=== PATIENT | female | born 1995 | race Caucasian/White ===

== ENCOUNTER 2019-11-09 14:20 | Emergency (ER) | payer MEDICAID, SELFPAY ==
[2019-11-09 14:53] VITALS: BP 126/64; PULSE 82; RESP 16; TEMP 36.8; O2SAT 98; BMI 32.8
--- NOTE | 2019-11-09 15:01 | ED_ITS ---
Entered by Paula Haq, acting as scribe for Nov 09, 2019 14:20 HPI - Female Genitourinary General: Chief complaint: Urogenital-Female Stated complaint: bleeding Time Seen by Provider: 11/09/19 15:02 History of Present Illness: HPI Narrative: 24 yo female presents with vaginal bleeding. Pt states that she got a depo shot in [facility], she isn't due for another shot until November 20. Pt states that she has abdomen pain. Pt states that she had had large clots. MD elicited complaint: vaginal bleeding Onset (ago): week(s) (1) Location of symptoms: vaginal Female Urogenital Radiation: Suprapubic Quality of pain: sharp Consistency: constant Vaginal bleeding: heavy and clots Exacerbating factors: movement Relieving factors: none Associated symptoms: Deny abdominal pain or headache(s) Date of Last Menstrual Period: 11/06/19 Review of Systems Const: Denies: fever, chills, body aches or change in appetite Eyes: Denies: blurry vision or eye discomfort ENMT: Denies: throat pain or dental pain Card: Denies: chest pain Resp: Denies: shortness of breath GI: Denies: abdominal pain : Denies: painful urination Musc: Denies: neck pain or back pain Skin/Breast: Denies: rash Neuro: Denies: headache Psych: Denies: depression Damien/Lymph: Denies: easy bruising All/Imm: Denies: hives PFSH ED PFSH: Medical History (Updated 11/09/19 @ 16:02 by Scooby Hadley MD) Peptic ulcer disease Seizure disorder Surgical History (Updated 11/09/19 @ 15:09 by Paula Haq) History of cholecystectomy Social History Smoking and tobacco status: current every day smoker Female Reproductive History: Date of last menstrual period: 11/06/19 Physical Exam Const: COMMON NORMALS: no apparent distress, oriented x3 and healthy appearing HENMT: COMMON NORMALS: normocephalic and head/scalp atraumatic HEAD & SCALP: normocephalic and atraumatic Eye: COMMON NORMALS: PERRL and EOMs intact bilaterally PUPIL: Yes PERRL Neck/C-Spine: COMMON NORMALS: full ROM and supple Chest: COMMONS NORMALS: inspection of chest normal and palpation of chest normal Resp: COMMON NORMALS: normal respiratory effort, no retractions, no use of accessory muscles and clear to auscultation bilaterally AUSCULTATION: clear to auscultation bilaterally Cardio: COMMON NORMALS: regular rate, regular rhythm and no murmurs RATE: regular rate RHYTHM: regular rhythm GI: COMMON NORMALS: normal to inspection, nondistended, normoactive bowel sounds, soft to palpation and no masses PALPATION: Yes soft and Yes tender (lower abdomen pain) Extremity: COMMON NORMALS: normal to inspection and full ROM Neuro: COMMON NORMALS: oriented x3, moves all extremities and no focal motor deficits Psych: COMMON NORMALS: mental status grossly normal, thought process normal and cooperative THOUGHT PROCESS: normal thought process Skin: COMMON NORMALS: no rashes or lesions noted and no wounds GENERAL SKIN EXAM: no rashes or lesions noted Course Vital Signs: Vital signs: Vital Signs Temperature 98.2 F 11/09/19 14:53 Pulse Rate 82 11/09/19 14:53 Respiratory Rate 16 11/09/19 14:53 Blood Pressure 126/64 11/09/19 14:53 Pulse Oximetry 98 11/09/19 14:53 MDM - Female MDM Narrative: Medical decision making narrative: Patient presents with vaginal bleeding is likely menses. Her test here is negative and blood work is negative as well. Patient is on the Depo shot currently and is to follow-up with her primary care Dr. Starr next week. She is return to the ER if worsening. Patient's blood pressure here is normal and she has no signs of hypotension. Lab Data: Labs: Lab Results 11/09/19 11/09/19 Range/Units 15:24 15:24 WBC 8.0 (4.0-10.0) 10^3/ uL RBC 4.80 (4.1-5.3) 10^6/u L Hgb 12.2 (11.5-15.3) g/dL Hct 40.9 (37.0-47.0) % MCV 85.2 (81-99) fL MCH 25.4 L (28.0-34.0) pg MCHC 29.8 L (30.0-36.0) g/dL RDW 17.5 H (12.1-15.1) % Plt Count 401 H (130-400) 10^3/c mm MPV 9.5 (7.4-10.4) fL Neut % (Auto) 49.9 % Lymph % (Auto) 38.8 % [place] % (Auto) 4.3 % Eos % (Auto) 5.9 % Baso % (Auto) 0.8 % Neut # (Auto) 4.0 (1.8-7.7) 10^3/u L Lymph # (Auto) 3.1 (0.8-4.8) 10^3/u L [place] # (Auto) 0.3 (0.2-0.9) 10^3/u L Eos # (Auto) 0.5 (0.0-0.8) 10^3/u L Baso # (Auto) 0.1 (0.0-0.1) 10^3/u L Nucleated RBC % (a uto) 0 % Nucleated RBCs # 0.0 /100WBC Sodium 138 (136-145) mmol/L Potassium 4.0 (3.5-5.1) mmol/L Chloride 104 (98-107) mmol/L Carbon Dioxide 21 L (22-29) mmol/L Anion Gap 17.0 (5-19) BUN 7 (6-20) mg/dL Creatinine 0.5 (0.5-0.9) mg/dL GFR Calculation 151.6 H (90-130) mL/min Glucose 98 (65-115) mg/dL Calculated Osmolal ity 282 L (285-295) mOsm/k g Calcium 9.8 (8.5-10.5) mg/dL Ser , Sony i-Qnt 0.50 mIU/mL Discharge Plan Discharge Patient Disposition: Home, Self-Care Clinical Impression: Vaginal bleeding Condition: Stable Discharge Orders: Discharge Order (Routine); Ordered 11/09/19 Ordered By: Scooby Hadley Referrals: Octaviano [place] MD [Primary Care Provider] - Discharge Diet: Advance as tolerated Discharge Activity: Resume usual activity Patient Instructions: Menstruation (ED) Coding Level of Care Code ED Furnace Process Supervisor for Chg Fwd Exam Comprehensive The documentation recorded by the Severino whitman Kialy, accurately reflects the service I personally performed and the decisions made by Jomar smith Korby, MD Nov 09, 2019 14:20
[2019-11-09 15:31] LABS: Basophils # 0.1 10^3/uL (0.0-0.1); Basophils % 0.8 %; Eosinophils # 0.5 10^3/uL (0.0-0.8); Eosinophils % 5.9 %; Hematocrit 40.9 % (37.0-47.0); Hemoglobin 12.2 g/dL (11.5-15.3); Lymphocytes # 3.1 10^3/uL (0.8-4.8); Lymphocytes % 38.8 %; Mean Corpuscular HGB Conc 29.8 g/dL (30.0-36.0); Mean Corpuscular Hemoglobin 25.4 pg (28.0-34.0); Mean Corpuscular Volume 85.2 fL (81-99); Mean Platelet Volume 9.5 fL (7.4-10.4); Monocytes # 0.3 10^3/uL (0.2-0.9); Monocytes % 4.3 %; Neutrophils % 49.9 %; Nucleated Red Blood Cells % 0 %; Platelet Count 401 10^3/cmm (130-400); Red Cell Distribution Width 17.5 % (12.1-15.1)
[2019-11-09 15:50] LABS: Blood Urea Nitrogen 7 mg/dL (6-20); Calcium 9.8 mg/dL (8.5-10.5); Carbon Dioxide 21 mmol/L (22-29); Chloride 104 mmol/L (98-107); Glomerular Filtration Rate 151.6 mL/min (90-130); Glucose 98 mg/dL (65-115); Osmolality Calculated 282 mOsm/kg (285-295); Sodium 138 mmol/L (136-145)
[2019-11-09 16:06] VITALS: BP 115/75; PULSE 75; RESP 15; O2SAT 98
== END 2019-11-09 16:07 | disposition home or self-care (01) ==
PROVIDERS: Emergency Provider Emergency Medicine; PCP Family Medicine
DX: N93.9 Abnormal uterine and vaginal bleeding, unspecified (principal)
CPT/HCPCS: 36415; 80048; 84702; 85025; 99281; 99282

== ENCOUNTER → 2020-04-28 11:12 | Outpatient (BNVA) | payer MEDICAID, SELFPAY | PROVIDERS: PCP Family Medicine; Visit Provider Nurse Practitioner Family | DX: L23.7 Allergic contact dermatitis due to plants, except food (principal); L08.9 Local infection of the skin and subcutaneous tissue, unspecified; M25.461 Effusion, right knee; G89.29 Other chronic pain; M25.561 Pain in right knee | CPT/HCPCS: 73562 ==

== ENCOUNTER 2020-05-26 14:21 | Outpatient (CLI) | payer MEDICAID, SELFPAY ==
--- NOTE | 2020-05-26 17:30 | MR_ITS ---
WS: [id number] MRI RIGHT KNEE NONCONTRAST TECHNIQUE: Axial PD, coronal PD fat sat, coronal PD, sagittal PD, and sagittal PD fat-sat images obta ined. CLINICAL INFORMATION: M25.569 Pain in unspecified knee COMPARISON: None. FINDINGS: Distal quadriceps and patella tendons are intact. Normal anterior and posterior cruciate ligament. No rmal patella. Hoffa's fat pad is normal in appearance. Horizontal tear involving the posterior horn m edial meniscus extending to the articular surface. This extends into the meniscal root. Two small ass ociated meniscal cysts measuring 8 and 9 mm Mild chondromalacia patella worse involving the lateral patella facet. No subchondral edema. Normal m edial and lateral collateral ligaments. No subchondral edema involving the tibial plateau. MR/MR knee RT wo con* [id number] IMPRESSION: 1. Anterior and posterior cruciate ligaments are intact. 2. Horizontal tear involving the posterior horn medial meniscus extending to t he meniscal root and articular surface. Small adjacent perimeniscal cysts measu ring 8 and 9 mm. 3. Mild chondromalacia patella worse involving the lateral patella facet. 4. Normal popliteal fossa. 5. Normal medial and lateral collateral ligaments.
== END 2020-05-26 14:22 | disposition home or self-care (01) ==
LOC: RADSHAW 14:26
PROVIDERS: PCP Family Medicine; Visit Provider Orthopaedic Surgery
DX: S83.241A Other tear of medial meniscus, current injury, right knee, initial encounter (principal); X58.XXXA Exposure to other specified factors, initial encounter; M22.41 Chondromalacia patellae, right knee
CPT/HCPCS: 73721

== ENCOUNTER → 2020-06-07 09:07 | Outpatient (BNVA) | payer MEDICAID, SELFPAY | PROVIDERS: PCP Family Medicine; Visit Provider Internal Medicine | DX: J45.40 Moderate persistent asthma, uncomplicated (principal) | CPT/HCPCS: 87635 ==

== ENCOUNTER → 2021-06-02 09:54 | Outpatient (BNVA) | payer BC, MEDICAID, SELFPAY | PROVIDERS: PCP Family Medicine; Visit Provider Obstetrics & Gynecology | DX: O09.899 Supervision of other high risk pregnancies, unspecified trimester (principal); J45.40 Moderate persistent asthma, uncomplicated; F17.200 Nicotine dependence, unspecified, uncomplicated; F12.10 Cannabis abuse, uncomplicated; O09.30 Supervision of pregnancy with insufficient antenatal care, unspecified trimester; Z86.32 Personal history of gestational diabetes; Z3A.00 Weeks of gestation of pregnancy not specified | CPT/HCPCS: 80307; 81000; 82950; 85027; 86592; 86762; 86803; 86850; 86900; 87086; 87340; 87491; 87591; 87661; 87806; 88175 ==

== ENCOUNTER → 2021-06-16 09:15 | Outpatient (BNVA) | payer BC, MEDICAID, SELFPAY | PROVIDERS: PCP Family Medicine; Visit Provider Obstetrics & Gynecology | DX: O09.899 Supervision of other high risk pregnancies, unspecified trimester (principal); Z86.32 Personal history of gestational diabetes; J45.40 Moderate persistent asthma, uncomplicated; F17.200 Nicotine dependence, unspecified, uncomplicated; F12.10 Cannabis abuse, uncomplicated; O09.30 Supervision of pregnancy with insufficient antenatal care, unspecified trimester | CPT/HCPCS: 81000 ==

== ENCOUNTER → 2021-07-11 14:20 | Outpatient (BNVA) | payer BC, MEDICAID, SELFPAY | PROVIDERS: Visit Provider Obstetrics & Gynecology | DX: O09.899 Supervision of other high risk pregnancies, unspecified trimester (principal); F15.11 Other stimulant abuse, in remission; Z86.32 Personal history of gestational diabetes; J45.40 Moderate persistent asthma, uncomplicated; F17.200 Nicotine dependence, unspecified, uncomplicated; F12.10 Cannabis abuse, uncomplicated; O09.30 Supervision of pregnancy with insufficient antenatal care, unspecified trimester; F41.9 Anxiety disorder, unspecified; F32.A Depression, unspecified; Z3A.00 Weeks of gestation of pregnancy not specified | CPT/HCPCS: 80307; 81000; 87081 ==

== ENCOUNTER 2021-07-18 11:25 | Outpatient (CLI) | payer BC, MEDICAID, SELFPAY ==
[2021-07-18 12:04] VITALS: RESP 17; TEMP 36.6
[2021-07-18 12:24] LABS: Actim Prom Negative
[2021-07-18 12:28] VITALS: BP 119/69; PULSE 77
[2021-07-18 12:57] VITALS: BP 115/77; PULSE 77
[2021-07-18 13:20] VITALS: BP 115/77; PULSE 77
== END 2021-07-18 13:20 | disposition home or self-care (01) ==
LOC: OPOB 11:36 → OBGYN 12:00
PROVIDERS: Obstetrics & Gynecology; Visit Provider Obstetrics & Gynecology
DX: O99.891 Other specified diseases and conditions complicating pregnancy (principal); N89.8 Other specified noninflammatory disorders of vagina
CPT/HCPCS: 59025; 80307; 81000; 84112; 99211

== ENCOUNTER 2021-07-24 17:25 | Inpatient (IN) | payer BC, MEDICAID, SELFPAY ==
[2021-07-24] VITALS (11 sets, daily range): BP systolic 112–146; BP diastolic 56–93; PULSE 64–97; RESP 17; BMI 33.8
--- NOTE | 2021-07-24 17:55 | PC.NURSE ---
pt transferring from [facility] to labor bed, RN and EMS personnel at bedside assisting pt over to bed
[2021-07-24] MEDS: lactated ringers 1,000 ML 125 ML IV (18:00)
[2021-07-24] MEDS: oxytocin 30 UNIT/500 ML BAG 600 UNIT IV (18:00)
--- NOTE | 2021-07-24 18:16 | PC.NURSE ---
pt in lithotomy position with legs in stir ups, RN at bedside, manually inspecting uterus at this time.
[2021-07-24] MEDS: miSOPROStol 200 mcg Tablet 800 MCG PR (18:17)
[2021-07-24] MEDS: fentaNYL 50 mcg/mL INJ 2mL IVP (18:26)
--- NOTE | 2021-07-24 18:29 | PM.OBGYHP ---
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 Moses is a 25-year old 10 para 4-0-5-4 who is approximately 37 weeks gestation who presented to labor and delivery via EMS after delivering at home. I got a call at 5:56 PM stating that EMS had called Labor and Delivery stating they were 20 minutes out and patient had delivered at home at about 5:20 PM and that the baby was doing well. They stated that the placenta had delivered and patient did have some bleeding but not excessive. Patient rates Labor and Delivery at 5:52 PM and I was on Labor and Delivery to evaluate the patient. Patient was taken to her room and placed in lithotomy position. Placenta had been brought in. Patient had membranes hanging out of her vagina. Patient was pretty uncomfortable. course: Limited care-started care at 30 weeks with women's health care and had [address] Akhtar. History significant for history of methamphetamine use and current marijuana use. She also has asthma mild intermittent and uses an albuterol inhaler as needed. She does smoke cigarettes as well. GBS was positive and patient did not obtain antibiotics as she delivered at home Obstetric History: x4 SAB x4 DELIVERY NOTE: She was set up in lithotomy position after verbal consent was obtained. Membranes were removed using the ring forceps. Manual exploration of the uterine cavity was done with just membranes and clots removed. No placental tissue identified. Fundus was firm however low segment was boggy and 800 mcg of Cytotec was placed per rectum and Pitocin was continued. The vagina and cervix were inspected and no cervical or sulcal lacerations were noted. Baby boy Stoney born at home. No Apgars as they reached the hospital at 30 minutes of life. Placenta was delivered by EMS. Cotyledons were intact , eccentrically inserted umbilical cord with 3 vessels noted. Placenta appeared circumvallate-sent to pathology Estimated blood loss -50 mL On Labor and Delivery . About 300 mL lost previously. Complications-none, both baby and mother were left to recover in a stable condition Assessment/plan: Routine care, p.o. pain medication as needed -Patient does not have custody of her other children and will likely have a DFS case -History of methamphetamine use and marijuana use-drug screen sent today -CBC sent now. Milieu Technician notified that was born of a GBS positive mother without antibiotics at time of delivery -Encourage ambulation. This documentation was created by [employer] banquet manager software (known for inherent banquet manager error). Every effort was made to assure accuracy of banquet manager. Any obvious errors or omissions should be clarified with the author of the document. Present Details Date of Last Menstrual Period: 11/09/19 Calculated Date of Delivery: 08/15/20 Gestational Age Based on Last Menstrual Period: 89 Review of Systems General: Reports: 10 or more systems reviewed and unremarkable except in HPI and below Const: Denies: fever(s), chills, change in appetite, change in weight, fatigue, malaise or change in sleep pattern Eyes: Denies: change in vision, eye discomfort, eye discharge or seeing flashes ENMT: Denies: throat pain, odynophagia, hoarseness, bleeding gums, ear discharge, nasal discharge or nasal congestion Card: Denies: chest pain, irregular heart rhythm, edema, swelling of feet/ankles, dyspnea on exertion or leg pain with exertion Resp: Denies: dyspnea, productive cough, wheezing or chest congestion GI: Reports: abdominal pain; Denies: nausea, vomiting, heartburn, diarrhea, constipation, change in bowel habits or hematochezia : Reports: vaginal bleeding; Denies: flank pain, dysuria, urinary frequency, urinary urgency, urinary incontinence, genital lesions, vaginal odor, vaginal discharge, dysmenorrhea, change in menstrual flow, prolapse symptoms, dyspareunia or sexual dysfunction Musc: Denies: neck pain, back pain, joint pain, joint swelling or muscle cramps Skin/Breast: Denies: rash, pruritus, breast tenderness, nipple discharge or breast mass Neuro: Denies: headache(s), numbness in extremities or seizure-like activity Psych: Denies: anxiety, depression, mood swings or change in appetite Endo: Denies: cold intolerance, flushing, hot flashes or change in body appearance Damien/Lymph: Denies: easy bruising, easy bleeding or enlarged lymph nodes All/Imm: Denies: urticaria, tongue swelling, acute wheezing or itchy eyes Medications/Allergies Home Medications Medication Instructions Recorded Confirmed Last Taken Type albuterol sulfate 90 mcg/actuation 2 puff INHALATION Q6H PRN 05/17/20 07/18/21 Unknown History aerosol inhaler cephalexin 750 mg capsule 750 mg PO Q6H #40 cap 07/18/21 07/18/21 Unknown Rx Allergies Allergy/AdvReac Type Severity Reaction Status Date / Time pineapple Allergy Mild tingling Verified 07/18/21 09:43 of tongue/light swelling PFSH PRODUCTION CONTROL SCHEDULER PFSH: Medical History ADHD Anxiety Depression History of atrial septal defect History of reactive attachment disorder Peptic ulcer disease PTSD (post-traumatic stress disorder) Seizure disorder Surgical History History of cholecystectomy Family History Father Diabetes Heart disease Daughter Heart murmur Other Adopted Social History Marital status: Legally Additional social history: Drug use: Marijuana daily--> has medical card that is scanned into chart Supplemental PFSH Information: Tobacco use: Current everyday smoker-- 1ppd for 6 years Alcohol use: previous to on special occasions Drug use: everyday marijuana user--has medical marijuana card Other Female Reproductive History: Menstrual History Comment: Menarche: 13 Length: Duration: 6-7 days Sexual History: Sexual History Comment: Coitarche: 18 Lifetime Partners: more than 5 ----- been with current partner since 2019 Currently Active: yes Preference: bisexual STD History Comment: Chlamydia- 2014 Contraception: Contraception History Comment: Pills, Patch, Progesterone injection, Condoms Dietary Habits: Current diet type/program: regular (poorly balanced) History History History 10 Term 4 Miscarriages/Ectopic 5 0 Living Children 4 Other History: x5 SAB--> no complications 1--> 10/09/2015, Male, 8lbs 5oz, GDM, epidural, , delivered at [place], [place] 2--> 06/2016, Female, 7lbs 15oz, epidural, , GDM, delivered at [place], [place] 3--> 10/21/2017, Male, 8lbs 9oz, epidural, , delivered at [facility] in [place], [place] by Dr. [place] 4--> 03/06/2019, Male, 8lbs 15oz, epidural, , delivered at [facility] in [place], [place] 5--> current Care RASHAAD Calculator Estimated Delivery Date Method Current WG Current Estimate 08/09/21 LMP (Certain) 37w 5d Other Estimates 07/30/21 Ultrasound #1 39w 1d Vitals/I&O/Wt Last Vital Signs Pulse 78 07/24/21 18:21 Resp 17 07/24/21 18:26 BP 146/93 07/24/21 18:21 Attestations Medical Necessity Statement*: Patient just had a baby and will need to stay 1-2 more midnights to recover from delivery Coding Level of Care Code Acute Investigative Analyst for [facility] Justin
[2021-07-24 18:38] LABS: Blood Urine 3+ (Negative); Glucose Urine UA Norm (Normal); Ketones Urine 1+ (Negative); Nitrate Urine Negative (Negative); Protein Urine Trace (Negative); Specific Gravity, Urine 1.015 (1.005-1.030); Urine Appearance SL Hazy (CLEAR); Urine Color Yellow (Yellow); pH Urine 6.5 (5-7)
[2021-07-24 18:39] LABS: Bilirubin Urine 1+ (Negative); Leukocyte Esterase Urine Trace (Negative); Urobilinogen Urine 4 mg/dL (Negative)
[2021-07-24 18:45] LABS: Bacteria Urine 1+ /hpf; Mucus Urine 2+ /hpf; RBC Urine >100 /hpf (0-2); Squamous Epithelial Cell Urine 15-25 /hpf (0-5)
[2021-07-24 18:46] LABS: Add Urine Culture? No; Amphetamines Screen Urine Negative (Negative); Barbiturates Screen Urine Negative (Negative); Benzodiazepines Screen Urine Negative (Negative); Cocaine Screen Urine Negative (Negative); Opiate Screen Urine Negative (Negative); PCP Screen Urine Negative (Negative); THC Screen Urine Positive (Negative)
--- NOTE | 2021-07-24 19:00 | PC.NURSE ---
Report from EMS: Flori Moses,G 5 P5 now,EDC 08-09-2021, EMS got called out to pt house for delivery of baby, Baby boy born approximately 1635. prior to EMS arrival, Baby was crying and blow by was given per EMS personnel.EMS reported that placenta was delivered shortly after EMS arrival. EMS reported some membrane was hanging from vaginal or retained placenta possibly. reported that bleeding was ok. Arrival of EMS was 1752, pt bleeding was scant but tissue was visible from the vaginal canal. IV fluid was switched from what EMS presented with and LR was started at 125mL/hr. fundus was assessed and was firm at -2 station. entered that room at 1758, pt placed in lithomoy position for to inspect uterus.
[2021-07-24 19:27] LABS: Basophils # 0.1 10^3/uL (0.0-0.1); Basophils % 0.4 %; Eosinophils # 0.2 10^3/uL (0.0-0.8); Eosinophils % 1.1 %; Hematocrit 36.3 % (37.0-47.0); Hemoglobin 11.6 g/dL (11.5-15.3); Lymphocytes # 2.2 10^3/uL (0.8-4.8); Lymphocytes % 12.4 %; Mean Corpuscular Volume 90.8 fl (81-99); Mean Platelet Volume 11.3 fL (7.4-10.4); Monocytes # 0.6 10^3/uL (0.2-0.9); Monocytes % 3.4 %; Neutrophils # 14.47 10^3/uL (1.8-7.7); Neutrophils % 82.2 %; Nucleated Red Blood Cells % 0 %; Platelet Count 321 10^3/cmm (130-400); Red Cell Distribution Width 15.8 % (12.1-15.1); White Blood Count 17.6 10^3/uL (4.0-10.0)
--- NOTE | 2021-07-24 19:30 | PC.NURSE ---
Soiled linens and chuxs weighed 10 blue Chux 1 Bathmat from home 1 Flat Sheet from home 1 EMS blanket Approx 10 paper towels (from home) Approximated Dry Weight: 2280 grams Wet Weight: 3570 grams
[2021-07-24] MEDS: ibuprofen 800 mg tablet PO (22:00)
[2021-07-25 00:40] VITALS: BP 107/64; PULSE 78
--- NOTE | 2021-07-25 02:44 | PC.NURSE ---
[place] crisis hotline call placed due to urine positive drug screen for THC, late to care, limited care, and not having custody of the other four children.
[2021-07-25 04:28] VITALS: BP 136/59; PULSE 75
[2021-07-25 06:42] VITALS: BP 117/68; PULSE 68; TEMP 36.1
[2021-07-25 06:51] LABS: Hemoglobin 9.3 g/dL (11.5-15.3); Mean Corpuscular HGB Conc 32.1 g/dL (30.0-36.0); Mean Corpuscular Hemoglobin 28.7 pg (28.0-34.0); Mean Corpuscular Volume 89.5 fl (81-99); Mean Platelet Volume 11.2 fL (7.4-10.4); Platelet Count 278 10^3/cmm (130-400); Red Blood Count 3.24 10^6/uL (4.1-5.3); Red Cell Distribution Width 15.9 % (12.1-15.1); White Blood Count 14.3 10^3/uL (4.0-10.0)
--- NOTE | 2021-07-25 07:46 | PM.OBGYDC ---
Discharge Providers PENOLOGY TEACHER Date of Admission: 07/24/21 17:25 Date of Discharge: 07/25/21 Attending Provider at Admission: Leonid Branham MD Attending Provider at Discharge: Leonid Branham MD Ms. Moses is a 25-year old 10 para 4-0-5-4 who is approximately 37 weeks gestation who presented to labor and delivery via EMS after delivering at home. I got a call at 5:56 PM stating that EMS had called Labor and Delivery stating they were 20 minutes out and patient had delivered at home at about 5:20 PM and that the baby was doing well. They stated that the placenta had delivered and patient did have some bleeding but not excessive. Patient rates Labor and Delivery at 5:52 PM and I was on Labor and Delivery to evaluate the patient. Patient was taken to her room and placed in lithotomy position. Placenta had been brought in. Patient had membranes hanging out of her vagina. Patient was pretty uncomfortable. course: Limited care-started care at 30 weeks with women's health care and had [address] Akhtar. History significant for history of methamphetamine use and current marijuana use. She also has asthma mild intermittent and uses an albuterol inhaler as needed. She does smoke cigarettes as well. GBS was positive and patient did not obtain antibiotics as she delivered at home Obstetric History: x4 SAB x4 DELIVERY NOTE: She was set up in lithotomy position after verbal consent was obtained. Membranes were removed using the ring forceps. Manual exploration of the uterine cavity was done with just membranes and clots removed. No placental tissue identified. Fundus was firm however low segment was boggy and 800 mcg of Cytotec was placed per rectum and Pitocin was continued. The vagina and cervix were inspected and no cervical or sulcal lacerations were noted. Baby boy Stoney born at home. No Apgars as they reached the hospital at 30 minutes of life. Placenta was delivered by EMS. Cotyledons were intact , eccentrically inserted umbilical cord with 3 vessels noted. Placenta appeared circumvallate-sent to pathology Estimated blood loss -50 mL On Labor and Delivery . About 300 mL lost previously. Complications-none, both baby and mother were left to recover in a stable condition HOSPITAL COURSE: She underwent an uncomplicated vaginal delivery at home on 07/24/2021. She did well on day 0 and was ambulating well, tolerating regular diet, voiding freely, passing flatus. She was bottlefeeding without difficulty. Drug screen was positive for marijuana and DFS was involved in her case. She just wanted cigarettes however declined a nicotine patch. Pain was well-controlled with by mouth pain medication. She denied nausea, vomiting, fever, chills, shortness of breath, leg pain. She had moderate vaginal bleeding. On day # 1 she continued to do well with stable vital signs and stable hemoglobin at 9.3. She was discharged home on day 1 in a stable condition, as she desired early discharge. Warning signs for endometritis, mastitis, DVT/PE were reviewed with her. Post delivery activity restrictions were also reviewed with her at all her questions were answered to her satisfaction. Does not know what she wants for contraception and declined Depo-Provera in the interim. EXAM AT DISCHARGE: Gen.: No acute distress Heart: S1-S2 heard, regular rate and rhythm Lungs: Clear to auscultation bilaterally Abdomen: Soft, fundus firm below umbilicus, Legs: No calf tenderness, trace bilateral pitting pedal edema. CONDITION AT DISCHARGE: Stable This documentation was created by [employer] tag marker software (known for inherent tag marker error). Every effort was made to assure accuracy of tag marker. Any obvious errors or omissions should be clarified with the author of the document. Reason for Visit Reason for Visit: delivery History History History 10 Term 4 Miscarriages/Ectopic 5 0 Living Children 4 Other History: x5 SAB--> no complications 1--> 10/09/2015, Male, 8lbs 5oz, GDM, epidural, , delivered at [facility] in [place], [place] 2--> 06/2016, Female, 7lbs 15oz, epidural, , GDM, delivered at [facility] in [place], [place] 3--> 10/21/2017, Male, 8lbs 9oz, epidural, , delivered at [facility] in [place], [place] by Dr. [place] 4--> 03/06/2019, Male, 8lbs 15oz, epidural, , delivered at [facility] in [place], [place] 5--> current Discharge Data Data Completed and Pending: Pending at discharge Category Date Time Status Cytology [PTH] Ro utine Pth 07/24/21 18:23 Ordered Labs from last 24 hours 07/25/21 07/24/21 07/24/21 06:41 20:12 19:11 WBC 14.3 H 17.6 H RBC 3.24 L 4.00 L Hgb 9.3 L 11.6 Hct 29.0 L 36.3 L MCV 89.5 90.8 MCH 28.7 29.0 MCHC 32.1 32.0 RDW 15.9 H 15.8 H Plt Count 278 321 MPV 11.2 H 11.3 H Neut % (Auto) 82.2 Lymph % (Auto) 12.4 [place] % (Auto) 3.4 Eos % (Auto) 1.1 Baso % (Auto) 0.4 Neut # (Auto) 14.47 H Lymph # (Auto) 2.2 [place] # (Auto) 0.6 Eos # (Auto) 0.2 Baso # (Auto) 0.1 Nucleated RBC % (a uto) 0 Nucleated RBCs # 0.0 Urine Color Urine Appearance Urine pH Ur Specific Gravit y Urine Protein Urine Glucose (UA) Urine Ketones Urine Blood Urine Nitrate Urine Bilirubin Urine Urobilinogen Ur Leukocyte [place] Urine RBC Urine WBC Ur Squamous Epith Cells Amorphous Sediment Urine Bacteria Urine Mucus Urine Opiates Scre en Ur Barbiturates Sc reen Ur Phencyclidine S crn Ur Amphetamines Sc reen U Benzodiazepines Scrn Urine Cocaine Scre en U Marijuana (THC) Screen Blood Type A Positive Rho(D) Type Positive Antibody Screen Negative 07/24/21 07/24/21 18:00 18:00 WBC RBC Hgb Hct MCV MCH MCHC RDW Plt Count MPV Neut % (Auto) Lymph % (Auto) [place] % (Auto) Eos % (Auto) Baso % (Auto) Neut # (Auto) Lymph # (Auto) [place] # (Auto) Eos # (Auto) Baso # (Auto) Nucleated RBC % (a uto) Nucleated RBCs # Urine Color Yellow Urine Appearance Sl hazy Urine pH 6.5 Ur Specific Gravit y 1.015 Urine Protein Trace Urine Glucose (UA) Norm Urine Ketones 1+ H Urine Blood 3+ H Urine Nitrate Negative Urine Bilirubin 1+ H Urine Urobilinogen 4 H Ur Leukocyte [place] Trace H Urine RBC >100 H Urine WBC 10-15 H Ur Squamous Epith Cells 15-25 H Amorphous Sediment Not Reportable Urine Bacteria 1+ H Urine Mucus 2+ Urine Opiates Scre en Negative Ur Barbiturates Sc reen Negative Ur Phencyclidine S crn Negative Ur Amphetamines Sc reen Negative U Benzodiazepines Scrn Negative Urine Cocaine Scre en Negative U Marijuana (THC) Screen Positive H Blood Type Rho(D) Type Antibody Screen Vitals: Last Vital Signs Temp 97.0 F L 07/25/21 06:42 Pulse 68 07/25/21 06:42 Resp 17 07/24/21 19:00 BP 117/68 07/25/21 06:42 Discharge Plan Discharge Patient Disposition: Home Condition: Stable Prescriptions: New ibuprofen 800 mg tablet 800 mg PO Q8H Qty: 30 RF: 0 ferrous sulfate 325 mg (65 mg iron) tablet 325 mg PO BID Qty: 30 RF: 0 docusate sodium 100 mg Capsule 100 mg PO BID PRN (Reason: constipation) Qty: 30 RF: 0 Continued albuterol sulfate [ProAir HFA] 90 mcg/actuation HFA aerosol inhaler 2 puff INHALATION Q6H PRNRF: 0 cephalexin [Keflex] 750 mg capsule 750 mg PO Q6H Qty: 40 RF: 0 Discharge Orders: Discharge Order (Routine); Ordered 07/25/21 Ordered By: Leonid Branham Referrals: Ivanna Akhtar MD [Physician] - 09/05/21 9:15 am (2 week appointment on 08/08/21 at 1:30pm and 6-week appointment 09/05/21 at 9:15am. ) Discharge Diet: Usual diet Discharge Activity: Limit activity as instructed Patient Instructions: Depression (DC), Bleeding (DC), Preeclampsia and Eclampsia After Delivery (GEN), Vaginal Delivery (DC), OB Discharge Report, OB Food/Drug Interaction Guide, OB Home Care, OB Proud Parent Packet Activity Restrictions/Additional Instructions: Pelvic pelvic rest for 6 weeks, no heavy lifting for 6 weeks, follow-up with Dr. Akhtar for 6-week visit Discharge Attestations PENOLOGY TEACHER Time Spent in Discharge Care*: greater than 30 min Coding Level of Care Code Acute Director Industrial Relations for [facility] Justin
[2021-07-25] MEDS: prenatal vitamin Capsule 1 CAP PO (08:23)
[2021-07-25] MEDS: ibuprofen 800 mg tablet PO (08:23)
--- NOTE | 2021-07-25 08:45 | PC.NURSE ---
Lyndsey, [facility] jewelry sales representative, present at bedside at this time. This nurse at bedside with Lyndsey.
[2021-07-25 10:48] VITALS: BP 113/62; PULSE 74; RESP 16
--- NOTE | 2021-07-25 13:26 | PC.NURSE ---
Patient Rounding This nurse rounded on patient. She is talking on phone, crying, very upset, raising voice at person on the other line of phone. This nurse verbalized concern for patient and baby due to loud voices heard from hallway. Patient took deep breathes to remain calm.
[2021-07-25 14:25] VITALS: BP 105/58; PULSE 67; RESP 18; TEMP 36.9
[2021-07-25 15:52] VITALS: BP 119/62; PULSE 75; RESP 18; TEMP 36.9
== END 2021-07-25 16:50 | disposition home or self-care (01) | DRG 769 ==
PROVIDERS: Admitting Provider Obstetrics & Gynecology; Visit Provider Obstetrics & Gynecology
DX: O73.1 Retained portions of placenta and membranes, without hemorrhage (principal); O99.325 Drug use complicating the puerperium; F90.9 Attention-deficit hyperactivity disorder, unspecified type; F17.210 Nicotine dependence, cigarettes, uncomplicated; F12.10 Cannabis abuse, uncomplicated; F15.11 Other stimulant abuse, in remission; F41.8 Other specified anxiety disorders; Z87.11 Personal history of peptic ulcer disease; F43.10 Post-traumatic stress disorder, unspecified; J45.40 Moderate persistent asthma, uncomplicated; O99.345 Other mental disorders complicating the puerperium; O99.335 Smoking (tobacco) complicating the puerperium; O90.89 Other complications of the puerperium, not elsewhere classified
CPT/HCPCS: 36415; 80306; 81001; 85025; 85027; 86850; 86900; 88307; J3010

== ENCOUNTER → 2021-12-28 13:49 | Outpatient (BNVA) | payer BC, MEDICAID, SELFPAY | PROVIDERS: Visit Provider Nurse Practitioner Family | DX: M54.9 Dorsalgia, unspecified (principal) | CPT/HCPCS: 81000; 81025 ==

== ENCOUNTER 2021-12-29 11:21 | Outpatient (CLI) | payer BC, MEDICAID, SELFPAY ==
--- NOTE | 2021-12-29 11:42 | XR_ITS ---
WS: [id number] Lumbar spine, 3 views, 12/29/2021 Clinical Data: M54.50 - Low back pain, unspecified Comparison: None. Findings: No compression fractures or subluxation is seen. No disc space narrowing is seen. The transverse proc esses and SI joints are normal. There are clips in the right upper quadrant from a cholecystectomy. XR/XR lumbar spine 2-3V* [id number] Impression: Negative lumbar spine.
== END 2021-12-29 11:22 | disposition home or self-care (01) ==
LOC: RAD 11:27
PROVIDERS: Visit Provider Nurse Practitioner Family
DX: M54.50 Low back pain, unspecified (principal)
CPT/HCPCS: 72100

== ENCOUNTER → 2022-01-09 16:18 | Outpatient (BNVA) | payer BC, MEDICAID, SELFPAY | PROVIDERS: Visit Provider Nurse Practitioner Family | DX: N93.9 Abnormal uterine and vaginal bleeding, unspecified (principal) | CPT/HCPCS: 80053; 84443; 85025 ==

== ENCOUNTER → 2022-01-24 09:13 | Outpatient (BNVA) | payer BC, MEDICAID, SELFPAY | PROVIDERS: Visit Provider Nurse Practitioner Family | DX: R79.89 Other specified abnormal findings of blood chemistry (principal); R71.8 Other abnormality of red blood cells | CPT/HCPCS: 83540; 86705; 86706; 86709; 86803; 87340 ==

== ENCOUNTER → 2022-06-06 10:21 | Outpatient (BNVA) | payer MEDICAID, SELFPAY | PROVIDERS: Visit Provider Nurse Practitioner Family | DX: M25.532 Pain in left wrist (principal) | CPT/HCPCS: 73110 ==

== ENCOUNTER 2022-11-07 13:28 | Emergency (ER) | payer MEDICAID, SELFPAY ==
[2022-11-07 13:51] VITALS: BP 101/68; PULSE 85; RESP 22; TEMP 36.7; O2SAT 98; BMI 24.3
--- NOTE | 2022-11-07 14:46 | XR_ITS ---
WS: [id number] Exam: XR foot LT min 3V* [id number] Date/Time of Exam: 11/07/2022 2:46 PM Reason For Exam: Blunt trauma No acute fracture or dislocation. Normal soft tissues. Articular relationships are intact. XR/XR foot LT min 3V* [id number] IMPRESSION: 1. Negative left foot.
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
[2022-11-07 16:14] LABS: Add Urine Microscopic? NO; Charge for UA Resulting for Rev
[2022-11-07 16:28] LABS: Urine Appearance Clear (CLEAR); Urine Color Dark Yellow (Yellow); pH Urine 8 (5-7)
[2022-11-07 16:29] LABS: Bilirubin Urine Neg (Negative); Blood Urine Neg (Negative); Glucose Urine UA Norm (Normal); Ketones Urine 2+ (Negative); Leukocyte Esterase Urine Negative (Negative); Nitrate Urine Negative (Negative); Protein Urine Neg (Negative); Sulfosalicylic Acid Urine Negative (Negative); Urobilinogen Urine Norm (Negative)
[2022-11-07] MEDS: ketorolac 60 mg/2 mL INJ IM (16:30)
== END 2022-11-07 16:30 | disposition home or self-care (01) ==
PROVIDERS: Emergency Provider Nurse Practitioner Family
DX: S90.32XA Contusion of left foot, initial encounter (principal); M54.50 Low back pain, unspecified; F15.10 Other stimulant abuse, uncomplicated; W22.8XXA Striking against or struck by other objects, initial encounter; F17.210 Nicotine dependence, cigarettes, uncomplicated
CPT/HCPCS: 73630; 81003; 81025; 96372; 99284; J1885

== ENCOUNTER 2023-01-23 17:51 | Inpatient (IN) | payer MEDICAID, SELFPAY ==
[2023-01-23 17:55] VITALS: BMI 26.6
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
[2023-01-23 18:25] LABS: Basophils # 0.1 10^3/uL (0.0-0.1); Basophils % 0.7 %; Eosinophils # 0.3 10^3/uL (0.0-0.8); Eosinophils % 3.2 %; Hematocrit 38.4 % (37.0-47.0); Hemoglobin 12.1 g/dL (11.5-15.3); Lymphocytes # 1.6 10^3/uL (0.8-4.8); Lymphocytes % 18.4 %; Mean Corpuscular HGB Conc 31.5 g/dL (30.0-36.0); Mean Corpuscular Hemoglobin 28.3 pg (28.0-34.0); Mean Corpuscular Volume 89.7 fl (81-99); Mean Platelet Volume 8.7 fL (7.4-10.4); Monocytes # 0.5 10^3/uL (0.2-0.9); Neutrophils # 6.17 10^3/uL (1.8-7.7); Neutrophils % 71.4 %; Nucleated Red Blood Cells % 0 %; Platelet Count 405 10^3/cmm (130-400); Red Blood Count 4.28 10^6/uL (4.1-5.3); Red Cell Distribution Width 15.7 % (12.1-15.1); White Blood Count 8.7 10^3/uL (4.0-10.0)
[2023-01-23 18:28] LABS: HCG Qualitative Urine. Negative (Negative)
[2023-01-23 18:51] LABS: Alanine Aminotransferase 9 U/L (0-33); Albumin Level 4.5 g/dL (3.5-5.2); Alkaline Phosphatase 82 U/L (35-105); Anion Gap 16.7 (5-19); Aspartate Amino Transferase 12 U/L (0-32); Blood Urea Nitrogen 16 mg/dL (6-20); Calcium 9.1 mg/dL (8.5-10.5); Carbon Dioxide 21 mmol/L (22-29); Chloride 106 mmol/L (98-107); Globulin 2.6 g/dL (1.3-4.6); Glomerular Filtration Rate 119.9 mL/min (90-130); Glucose 73 mg/dL (65-115); Osmolality Calculated 290 mOsm/kg (285-295); Potassium 3.7 mmol/L (3.5-5.1); Sodium 140 mmol/L (136-145); Total Bilirubin 0.6 mg/dL (0.15-1.2); Total Protein 7.1 g/dL (6.6-8.7)
[2023-01-23 18:52] LABS: Acetaminophen < 5.0 ug/mL (10-30); Alcohol Level < 10 mg/dL (0-10); Salicylate < 0.3 mg/dL (3-10)
[2023-01-23] MEDS: LORazepam 2 mg Tablet PO (19:58)
[2023-01-23 22:00] VITALS: BP 112/67; PULSE 81; RESP 16; TEMP 36.9; O2SAT 100
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
[2023-01-24 06:00] VITALS: RESP 16
[2023-01-24] MEDS: OLANZapine 5 mg ODT PO (08:33)
[2023-01-24] MEDS: nicotine 21 mg Patch 1 PATCH TRANSDERMA (09:07)
[2023-01-24 09:19] VITALS: BP 106/73; PULSE 112; RESP 17; TEMP 37; O2SAT 98
[2023-01-24 13:22] VITALS: BP 118/77; PULSE 98; RESP 18; TEMP 36.6; O2SAT 99
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
[2023-01-24 14:06] LABS: Amphetamines Screen Urine Positive (Negative); Barbiturates Screen Urine Negative (Negative); Benzodiazepines Screen Urine Positive (Negative); Cocaine Screen Urine Negative (Negative); Opiate Screen Urine Negative (Negative); PCP Screen Urine Negative (Negative); THC Screen Urine Positive (Negative)
[2023-01-24 19:51] VITALS: BP 136/73; PULSE 76; RESP 18; TEMP 36.6; O2SAT 96
[2023-01-24] MEDS: quetiapine 100 mg Tablet PO (20:31)
[2023-01-25 06:00] VITALS: RESP 17
[2023-01-25] MEDS: magnesium hydroxide 30 mL UDC PO (09:14)
[2023-01-25] MEDS: nicotine 21 mg Patch 1 PATCH TRANSDERMA (12:06)
[2023-01-25] MEDS: hyDROXYzine 25 mg Capsule 50 MG PO (12:06)
[2023-01-25] MEDS: OLANZapine 5 mg ODT PO (12:35)
[2023-01-25 14:00] VITALS: BP 110/74; PULSE 109; RESP 18; TEMP 36.6; O2SAT 97
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
[2023-01-25 15:28] VITALS: BP 110/74; PULSE 109; RESP 18; TEMP 36.6; O2SAT 97
[2023-01-25] MEDS: fluoxetine 20 mg Capsule PO (16:09)
== END 2023-01-25 16:15 | disposition home or self-care (01) | DRG 881 ==
LOC: ER 18:52 → NP 20:44
PROVIDERS: Admitting Provider Psychiatry & Neurology Psychiatry; Emergency Provider Emergency Medicine; Visit Provider Psychiatry & Neurology Psychiatry
DX: F32.A Depression, unspecified (principal); F15.20 Other stimulant dependence, uncomplicated; F44.81 Dissociative identity disorder; F90.9 Attention-deficit hyperactivity disorder, unspecified type; F43.10 Post-traumatic stress disorder, unspecified; F12.90 Cannabis use, unspecified, uncomplicated; Z81.3 Family history of other psychoactive substance abuse and dependence; F17.200 Nicotine dependence, unspecified, uncomplicated; F60.3 Borderline personality disorder
CPT/HCPCS: 36415; 80053; 80306; 80307; 81025; 85025; 97150; 97165; 99238; 99285

== ENCOUNTER → 2023-02-15 13:52 | Outpatient (BNVA) | payer MEDICAID, SELFPAY | PROVIDERS: PCP Nurse Practitioner Family; Visit Provider Nurse Practitioner Family | DX: R42 Dizziness and giddiness (principal) | CPT/HCPCS: 80053; 84443; 85025 ==

== ENCOUNTER → 2023-03-01 15:14 | Outpatient (BNVA) | payer OTHER, SELFPAY | PROVIDERS: PCP Nurse Practitioner Family; Visit Provider Nurse Practitioner Family | DX: D75.839 Thrombocytosis, unspecified (principal); N64.4 Mastodynia; N64.52 Nipple discharge | CPT/HCPCS: 85025 ==

== ENCOUNTER → 2023-10-04 11:09 | Outpatient (BNVA) | payer OTHER, SELFPAY | PROVIDERS: PCP Nurse Practitioner Family; Visit Provider Nurse Practitioner | DX: Z79.899 Other long term (current) drug therapy (principal); F43.12 Post-traumatic stress disorder, chronic; F33.1 Major depressive disorder, recurrent, moderate; F41.1 Generalized anxiety disorder; F15.90 Other stimulant use, unspecified, uncomplicated; F17.210 Nicotine dependence, cigarettes, uncomplicated; F12.10 Cannabis abuse, uncomplicated | CPT/HCPCS: 80061; 83036 ==

== ENCOUNTER 2024-05-30 16:45 | Emergency (ER) | payer MEDICAID, SELFPAY ==
[2024-05-30 16:45] VITALS: BP 114/77; PULSE 84; RESP 16; TEMP 36.9; O2SAT 100; BMI 25.7
--- NOTE | 2024-05-30 16:50 | USR_ITS ---
PROCEDURE INFORMATION: Exam: US , Limited Exam date and time: 05/30/2024 5:36 PM Age: 28 years old Clinical indication: Lmp or gestational age (in weeks): 11w 4d; Antepartum complications; Bleeding; ; Additional info: 18 weeks gestation, vaginal bleeding no mvmnt LABS AND CLINICAL REPORTS: Last menstrual period start date: 02/09/2024 Gestational age (Established): 15 w 6 d Estimated due date (Established): 11/15/2024 TECHNIQUE: Imaging protocol: Real-time ultrasound of the maternal uterus with image documentation. Exam focused on the clinical indication. COMPARISON: US OB >= 14 weeks fetus [facility] 06/02/2021 11:10 AM FINDINGS: Gestation: Estimated gestational age 11 weeks 4 days by average crown-rump length. heart rate: 178 bpm Placenta: Heterogeneous fluid collection concerning for subchorionic hemorrhage measuring 2.7 x 2.4 x 3.8 cm. MATERNAL: Cervix: Cervical length measures 3.1 cm. However, the cervix may be slightly open. US/US OB limited [id number] IMPRESSION: 1. Findings concerning for subchorionic hemorrhage. 2. Cervix 3.1 cm in length but appears slightly open. 3. Estimated gestational age 11 weeks 4 days by average crown-rump length. 4. Normal heart rate.
--- NOTE | 2024-05-30 17:02 | ED_ITS ---
HPI - Female Genitourinary 2 General: Chief complaint: Vaginal Bleeding Stated complaint: vag bleeding, 18wks Time Seen by Provider: 05/30/24 16:46 History of Present Illness: Patient presents to the ER complaining of vaginal bleeding. Patient states she is approximately 18 weeks . Patient says she was feeling her baby move up until yesterday morning. She has not felt the baby move yesterday afternoon or today. The bleeding started earlier today. About 2 hours ago. It is dark in color. Patient has had no care with this . Patient is approximately . Patient does admit to meth use on a daily basis including earlier today. Date of Last Menstrual Period: 02/11/24 Related Data Previous Rx's Medication Instructions Recorded norgestimate-ethinyl estradiol 1 tab PO DAILY #84 tabs 03/01/23 0.18 mg/0.215mg/0.25mg-35 mcg(28)tablet (Tri-Sprintec (28)) aripiprazole 5 mg tablet (Abilify) 5 mg PO DAILY #30 tabs 01/31/24 fluoxetine 20 mg capsule (Prozac) 20 mg PO DAILY #30 caps 01/31/24 trazodone 100 mg tablet 100 mg PO DAILY #30 tabs 01/31/24 cyclobenzaprine 10 mg tablet 10 mg PO TID #90 tabs 02/07/24 prednisone 10 mg tablets in a dose See Rx Instructions PO PER PKG DIR 02/07/24 pack #21 ea Allergies Allergy/AdvReac Type Severity Reaction Status Date / Time pineapple Allergy Mild tingling Verified 02/07/24 13:37 of tongue/light swelling latex Allergy ALGY-Hives Verified 02/07/24 13:37 Review of Systems 2 General: Reports: 10 or more systems reviewed and unremarkable except in HPI and below PFSH ED 2 PFSH: Medical History Overdose of antipsychotic On combination antipsychotic drug therapy Stimulant use disorder Nicotine dependence, cigarettes, uncomplicated VIRY (generalized anxiety disorder) Major depressive disorder, recurrent, moderate Chronic post-traumatic stress disorder (PTSD) Psychiatric care History of atrial septal defect ADHD Depression Anxiety History of reactive attachment disorder PTSD (post-traumatic stress disorder) Peptic ulcer disease Seizure disorder Surgical History History of cholecystectomy Family History Father Diabetes Heart disease Daughter Heart murmur Other Adopted Social History Smoking and tobacco/nicotine status: current every day tobacco/nicotine user Second hand smoke exposure: Yes Substance/Drug Use: former Additional social history: Drug use: Marijuana daily--> has medical card that is scanned into chart Adopted: Yes Caregiver/support person: No Lives independently: Yes Housing: House Marital status: Legally Number of children: 4 service: No Pets and animals: Yes Do you think of yourself as: Straight/Heterosexual Female Reproductive History: Date of last menstrual period: 02/11/24 Physical Exam 2 Const: COMMON NORMALS: no acute distress, average body habitus, patient oriented x3, no limitations, healthy appearing, alert and well nourished HENMT: COMMON NORMALS: normocephalic, atraumatic, hearing grossly normal bilaterally, external ears normal, Normal external nose present and moist oral mucous membranes HEAD & SCALP: normocephalic and atraumatic NOSE: Normal external nose present EXTERNAL EAR: Yes external ears normal Neck/C-Spine: COMMON NORMALS: no JVD Chest: COMMONS NORMALS: normal inspection of the chest and normal palpation of entire chest wall Resp: COMMON NORMALS: normal respiratory effort, No retractions, No use of accessory muscles and clear to auscultation bilaterally AUSCULTATION: clear to auscultation bilaterally Cardio: COMMON NORMALS: no JVD, regular rate, regular rhythm, S1 normal heart sound present, S2 normal heart sound present, No gallops present (Cardio), No clicks present (Cardio), No murmurs present (Cardio) and No rub (Cardio) R ATE: regular rate RHYTHM: regular rhythm HEART SOUNDS: S1 normal heart sound present and S2 normal heart sound present GI: COMMON NORMALS: Normal to inspection, nondistended, normoactive bowel sounds present and Soft to palpation; negative for non-tender (Mildly tender to palpation midline suprapubically, gravid) PALPATION: Yes Soft to palpation Neuro: COMMON NORMALS: patient oriented x3 SENSORIUM/ORIENTATION: Yes alert Course 2 Vital Signs: Vital signs: Vital Signs Temperature 98.5 F 09/13/24 16:45 Pulse Rate 79 05/30/24 19:00 Respiratory Rate 16 05/30/24 16:45 Blood Pressure 114/69 05/30/24 19:00 Pulse Oximetry 100 05/30/24 19:00 Oxygen Delivery Me thod Room Air 05/30/24 19:00 MDM - Female Medical Decision Making Patient comes in approximate 10 weeks with vaginal bleeding. Lab work was obtained including ultrasound, these results was discussed with Dr. Ulloa. She suggested that patient call their office first thing Sunday morning for follow-up, but nothing inside her vagina, no sex, no illegal drugs, and get vitamin, these results was discussed with the patient as well as the suggestions she is understanding. Lab Data 05/30/24 16:59 05/30/24 16:59 Radiology Impressions Obstetrics Ultrasound 05/30/24 16:50 IMPRESSION: 1. Findings concerning for subchorionic hemorrhage. 2. Cervix 3.1 cm in length but appears slightly open. 3. Estimated gestational age 11 weeks 4 days by average crown-rump length. 4. Normal heart rate. ADDENDUM: 05/30/241843 THIS REPORT CONTAINS FINDINGS THAT MAY BE CRITICAL TO PATIENT CARE. The findings were verbally communicated via telephone conference with Scar Thomas at 6:42 PM CDT on 05/30/2024. The findings were acknowledged and understood. Laboratory Results WBC 9.56 10^3/uL (3.29-11.43) 05/30/24 16:59 RBC 4.21 10^6/uL (3.85-5.65) 05/30/24 16:59 Hgb 11.60 g/dL (11.27-16.99) 05/30/24 16:59 Hct 36.3 % (36-47) 05/30/24 16:59 MCV 86.2 fl (85-98) 05/30/24 16:59 MCH 27.6 pg (27-33) 05/30/24 16:59 MCHC 32.0 g/dL (30-55) 05/30/24 16:59 RDW 18.2 % (12.1-15.1) H 05/30/24 16:59 Plt Count 417 10^3/cmm (157-399) H 05/30/24 16:59 MPV 9.1 fL (7.4-10.4) 05/30/24 16:59 Neut % (Auto) 64.2 % 05/30/24 16:59 Lymph % (Auto) 25.5 % 05/30/24 16:59 [place] % (Auto) 4.8 % 05/30/24 16:59 Eos % (Auto) 5.1 % 05/30/24 16:59 Baso % (Auto) 0.2 % 05/30/24 16:59 Neut # (Auto) 6.13 10^3/uL (1.8-7.7) 05/30/24 16:59 Lymph # (Auto) 2.4 10^3/uL (0.8-4.8) 05/30/24 16:59 [place] # (Auto) 0.5 10^3/uL (0.2-0.9) 05/30/24 16:59 Eos # (Auto) 0.5 10^3/uL (0.0-0.8) 05/30/24 16:59 Baso # (Auto) 0.0 10^3/uL (0.0-0.1) 05/30/24 16:59 Nucleated RBC % (auto) 0 % 05/30/24 16:59 Nucleated RBCs # 0.0 /100WBC 05/30/24 16:59 PT 13.80 SECONDS (12.1-14.9) 05/30/24 16:59 INR 1.03 (0.8-1.2) 05/30/24 16:59 Sodium 138 mmol/L (136-145) 05/30/24 16:59 Potassium 4.0 mmol/L (3.5-5.1) 05/30/24 16:59 Chloride 104 mmol/L (98-107) 05/30/24 16:59 Carbon Dioxide 24 mmol/L (22-29) 05/30/24 16:59 Anion Gap 14.0 (5-19) 05/30/24 16:59 BUN 9 mg/dL (6-20) 05/30/24 16:59 Creatinine 0.5 mg/dL (0.5-0.9) 05/30/24 16:59 GFR Calculation 146.9 mL/min (90-130) H 05/30/24 16:59 Glucose 113 mg/dL (65-115) 05/30/24 16:59 Calculated Osmolality 285 mOsm/kg (285-295) 05/30/24 16:59 Calcium 8.9 mg/dL (8.5-10.5) 05/30/24 16:59 Total Bilirubin 0.2 mg/dL (0.15-1.2) 05/30/24 16:59 AST 9 U/L (0-32) 05/30/24 16:59 ALT 12 U/L (0-33) 05/30/24 16:59 Alkaline Phosphatase 75 U/L (35-105) 05/30/24 16:59 Total Protein 6.7 g/dL (6.6-8.7) 05/30/24 16:59 Albumin 3.9 g/dL (3.5-5.2) 05/30/24 16:59 Globulin 2.8 g/dL (1.3-4.6) 05/30/24 16:59 Urine Color Yellow (Yellow) 05/30/24 18:05 Urine Appearance Slightly cloudy (CLEAR) 05/30/24 18:05 Urine pH 5 (5-7) 05/30/24 18:05 Ur Specific [place] 1.025 (1.005-1.030) 05/30/24 18:05 Urine Protein Trace (Negative) 05/30/24 18:05 Urine Glucose (UA) Norm (Normal) 05/30/24 18:05 Urine Ketones Negative (Negative) 05/30/24 18:05 Urine Blood 3+ (Negative) H 05/30/24 18:05 Urine Nitrate Negative (Negative) 05/30/24 18:05 Urine Bilirubin Neg (Negative) 05/30/24 18:05 Urine Urobilinogen Neg mg/dL (Negative) 05/30/24 18:05 Ur Leukocyte Esterase 1+ (Negative) H 05/30/24 18:05 Urine RBC 21-50 /hpf (0-2) H 05/30/24 18:05 Urine WBC 5-10 /hpf (0-5) H 05/30/24 18:05 Ur Squamous Epith Cells 15-25 /hpf (0-5) H 05/30/24 18:05 Amorphous Sediment Not Reportable 05/30/24 18:05 Urine Bacteria 2+ /hpf (NONE) H 05/30/24 18:05 Urine Mucus 2+ /hpf 05/30/24 18:05 Urine Opiates Screen Negative ng/mL (Negative) 05/30/24 18:05 Ur Barbiturates Screen Negative ng/mL (Negative) 05/30/24 18:05 Ur Phencyclidine Scrn Negative ng/mL (Negative) 05/30/24 18:05 Ur Amphetamines Screen Positive ng/mL (Negative) H 05/30/24 18:05 U Benzodiazepines Scrn Negative ng/mL (Negative) 05/30/24 18:05 Urine Cocaine Screen Negative ng/mL (Negative) 05/30/24 18:05 U Marijuana (THC) Screen Positive ng/mL (Negative) H 05/30/24 18:05 Ethyl Alcohol 15 mg/dL (0-10) H 05/30/24 16:59 Blood Type A Positive 05/30/24 16:59 Rho(D) Type Rh positive 05/30/24 16:59 Antibody Screen Negative 05/30/24 16:59 All radiology interpretation(s) finalized by discharge Discharge Plan Discharge Patient Disposition: Home Clinical Impression: Vaginal bleeding during Condition: Stable Prescriptions: No Action norgestimate-ethinyl estradiol [Tri-Sprintec (28)] 0.18/0.215/0.25 mg-35 mcg (28) tablet 1 tab PO DAILY Qty: 84 3RF cyclobenzaprine 10 mg tablet 10 mg PO TID Qty: 90 2RF prednisone 10 mg tablets,dose pack See Rx Instructions PO PER PKG DIR Qty: 21 0RF Rx Instructions: PO PER PKG DIR aripiprazole [Abilify] 5 mg tablet 5 mg PO DAILY Qty: 30 1RF trazodone 100 mg tablet 100 mg PO DAILY Qty: 30 1RF fluoxetine [Prozac] 20 mg capsule 20 mg PO DAILY Qty: 30 1RF Discharge Orders: Discharge ED (Routine); Ordered 05/30/24 Ordered By: Scar Ty Referrals: Janel Tran FNP-C [Primary Care Provider] - 1 week Patient Instructions: Abdominal Pain in (ED) Activity Restrictions/Additional Instructions: Your ultrasound showed gestation of approximately 11 weeks and 4 days, heart rate of 170 bpm, and good movement. Your ultrasound also showed subchorionic hemorrhage which needs followed up by the RESIDENTIAL PROPERTY MANAGER's office please call their office Sunday morning for follow-up as soon as possible. If your bleeding or pain becomes worse feel free to return to the ER. Please do not insert anything into your vagina or have sex, do not use any illegal substances, get some multi vitamins and start taking them daily. Please call the RESIDENTIAL PROPERTY MANAGER's office first thing Sunday morning for an appointment the sooner the better. Coding Level of Care Code ED System Dispatcher for Rosalba Anderson
[2024-05-30 17:16] LABS: Basophils % 0.2 %; Eosinophils # 0.5 10^3/uL (0.0-0.8); Eosinophils % 5.1 %; Hematocrit 36.3 % (36-47); Lymphocytes # 2.4 10^3/uL (0.8-4.8); Lymphocytes % 25.5 %; Mean Corpuscular Hemoglobin 27.6 pg (27-33); Mean Corpuscular Volume 86.2 fl (85-98); Mean Platelet Volume 9.1 fL (7.4-10.4); Monocytes # 0.5 10^3/uL (0.2-0.9); Monocytes % 4.8 %; Neutrophils # 6.13 10^3/uL (1.8-7.7); Neutrophils % 64.2 %; Nucleated Red Blood Cells % 0 %; Platelet Count 417 10^3/cmm (157-399); Red Blood Count 4.21 10^6/uL (3.85-5.65); Red Cell Distribution Width 18.2 % (12.1-15.1); White Blood Count 9.56 10^3/uL (3.29-11.43)
[2024-05-30 17:26] LABS: INR 1.03 (0.8-1.2)
[2024-05-30 17:29] LABS: Alanine Aminotransferase 12 U/L (0-33); Albumin Level 3.9 g/dL (3.5-5.2); Alcohol Level 15 mg/dL (0-10); Alkaline Phosphatase 75 U/L (35-105); Aspartate Amino Transferase 9 U/L (0-32); Blood Urea Nitrogen 9 mg/dL (6-20); Calcium 8.9 mg/dL (8.5-10.5); Carbon Dioxide 24 mmol/L (22-29); Chloride 104 mmol/L (98-107); Creatinine Clr Calc Pharmacy 152.7124; Globulin 2.8 g/dL (1.3-4.6); Glomerular Filtration Rate 146.9 mL/min (90-130); Glucose 113 mg/dL (65-115); Osmolality Calculated 285 mOsm/kg (285-295); Sodium 138 mmol/L (136-145); Total Bilirubin 0.2 mg/dL (0.15-1.2); Total Protein 6.7 g/dL (6.6-8.7)
[2024-05-30 17:46] VITALS: BP 125/80; PULSE 82; O2SAT 100
[2024-05-30] MEDS: sodium chloride 0.9% 1,000 ML 999 ML IV (17:51)
[2024-05-30 18:00] VITALS: BP 119/65; PULSE 79; O2SAT 100
[2024-05-30 18:20] LABS: Amphetamines Screen Urine Positive (Negative); Barbiturates Screen Urine Negative (Negative); Benzodiazepines Screen Urine Negative (Negative); Cocaine Screen Urine Negative (Negative); Opiate Screen Urine Negative (Negative); PCP Screen Urine Negative (Negative); THC Screen Urine Positive (Negative)
[2024-05-30 18:29] LABS: Glucose Urine UA Norm (Normal); Protein Urine Trace (Negative); Specific Gravity, Urine 1.025 (1.005-1.030); Urine Appearance Slightly Cloudy (CLEAR); Urine Color Yellow (Yellow); pH Urine 5 (5-7)
[2024-05-30 18:30] LABS: Add Urine Microscopic? YES; Bilirubin Urine Neg (Negative); Blood Urine 3+ (Negative); Ketones Urine Negative (Negative); Leukocyte Esterase Urine 1+ (Negative); Nitrate Urine Negative (Negative); RBC Urine 21-50 /hpf (0-2); Urobilinogen Urine Neg (Negative)
[2024-05-30 18:31] LABS: Add Urine Culture? No; Bacteria Urine 2+ /hpf; Mucus Urine 2+ /hpf; Squamous Epithelial Cell Urine 15-25 /hpf (0-5)
[2024-05-30 19:00] VITALS: BP 114/69; PULSE 79; O2SAT 100
== END 2024-05-30 19:17 | disposition home or self-care (01) ==
PROVIDERS: Emergency Provider Emergency Medicine; PCP Nurse Practitioner Family
DX: O20.9 Hemorrhage in early pregnancy, unspecified (principal); O99.332 Smoking (tobacco) complicating pregnancy, second trimester; F17.200 Nicotine dependence, unspecified, uncomplicated; Z3A.18 18 weeks gestation of pregnancy
CPT/HCPCS: 36415; 76815; 80053; 80306; 80307; 81001; 85025; 85610; 86850; 86900; 99284; J7030

== ENCOUNTER 2024-06-12 14:18 | Inpatient (IN) | payer BC, MEDICAID, SELFPAY ==
[2024-06-12 14:22] VITALS: BP 102/61; PULSE 98; RESP 18; TEMP 37.2; O2SAT 98
--- NOTE | 2024-06-12 14:31 | ED.C_ITS ---
HPI - Psych 2 General: Chief Complaint: Psychiatric Symptoms Stated Complaint: MHE Time Seen by Provider: 06/12/24 14:23 Source: patient and EMS Mode of arrival: EMS Limitations: no limitations History of Present Illness: 28-year-old female currently 12 weeks pr egnant states she has had a lot of stressors at home she states that her mom and dad and her boyfriend along with other family members that live with her are all mean to her. She states she feels like the stress is going to cause her to have a miscarriage she states she is very depressed and does not know what to do she denies being suicidal. Related Data Previous Rx's Medication Instructions Recorded norgestimate-ethinyl estradiol 1 tab PO DAILY #84 tabs 03/01/23 0.18 mg/0.215mg/0.25mg-35 mcg(28)tablet (Tri-Sprintec (28)) aripiprazole 5 mg tablet (Abilify) 5 mg PO DAILY #30 tabs 01/31/24 fluoxetine 20 mg capsule (Prozac) 20 mg PO DAILY #30 caps 01/31/24 trazodone 100 mg tablet 100 mg PO DAILY #30 tabs 01/31/24 cyclobenzaprine 10 mg tablet 10 mg PO TID #90 tabs 02/07/24 prednisone 10 mg tablets in a dose See Rx Instructions PO PER PKG DIR 02/07/24 pack #21 ea Allergies Allergy/AdvReac Type Severity Reaction Status Date / Time pineapple Allergy Mild tingling Verified 02/07/24 13:37 of tongue/light swelling latex Allergy ALGY-Hives Verified 02/07/24 13:37 Review of Systems 2 Const: Denies: fever(s), chills, body aches or change in appetite ENMT: Denies: throat pain or dental pain Card: Denies: chest pain Resp: Denies: dyspnea GI: Denies: abdominal pain, nausea, vomiting or diarrhea Musc: Denies: neck pain or back pain Skin/Breast: Denies: rash Neuro: Denies: headache(s) PFSH ED 2 PFSH: Medical History Overdose of antipsychotic On combination antipsychotic drug therapy Stimulant use disorder Nicotine dependence, cigarettes, uncomplicated VIRY (generalized anxiety disorder) Major depressive disorder, recurrent, moderate Chronic post-traumatic stress disorder (PTSD) Psychiatric care History of atrial septal defect ADHD Depression Anxiety History of reactive attachment disorder PTSD (post-traumatic stress disorder) Peptic ulcer disease Seizure disorder Surgical History History of cholecystectomy Family History Father Diabetes Heart disease Daughter Heart murmur Other Adopted Social History Smoking and tobacco/nicotine status: current every day tobacco/nicotine user Second hand smoke exposure: Yes Substance/Drug Use: former Additional social history: Drug use: Marijuana daily--> has medical card that is scanned into chart Adopted: Yes Caregiver/support person: No Lives independently: Yes Housing: House Marital status: Legally Number of children: 4 service: No Pets and animals: Yes Do you think of yourself as: Straight/Heterosexual Physical Exam 2 Const: COMMON NORMALS: no acute distress, patient oriented x3 and healthy appearing HENMT: COMMON NORMALS: normocephalic and atraumatic HEAD & SCALP: n ormocephalic and atraumatic Neck/C-Spine: COMMON NORMALS: full ROM and supple Chest: COMMONS NORMALS: normal inspection of the chest Resp: COMMON NORMALS: normal respiratory effort Cardio: COMMON NORMALS: regular rate, regular rhythm and No murmurs present (Cardio) RATE: regular rate RHYTHM: regular rhythm GI: COMMON NORMALS: Normal to inspection, nondistended, normoactive bowel sounds present, Soft to palpation, non-tender and no masses PALPATION: Yes Soft to palpation Extremity: COMMON NORMALS: normal to inspection and full ROM Neuro: COMMON NORMALS: patient oriented x3, moves all extremities and no focal motor deficits Psych: COMMON NORMALS: Normal thought process present and cooperative T HOUGHT PROCESS: Normal thought process present Skin: COMMON NORMALS: no rashes or lesions noted and no wounds GENERAL SKIN EXAM: no rashes or lesions noted Course 2 Vital Signs: Vital signs: Vital Signs Temperature 98.9 F 06/12/24 14:22 Pulse Rate 98 06/12/24 14:22 Respiratory Rate 18 06/12/24 14:22 Blood Pressure 102/61 06/12/24 14:22 Pulse Oximetry 98 06/12/24 14:22 [facility] - Psych Medical Decision Making Patient presents for severe depression she voluntarily wants to be admitted to the psych [facility] I spoke to psychiatrist will admit at this time. She has been stable while here Medical Records I reviewed the patient's medical records. Lab Data I reviewed the patient's lab results. 06/12/24 14:34 06/12/24 14:34 Laboratory Results WBC 8.14 10^3/uL (3.29-11.43) 06/12/24 14:34 RBC 4.09 10^6/uL (3.85-5.65) 06/12/24 14:34 Hgb 11.30 g/dL (11.27-16.99) 06/12/24 14:34 Hct 35.4 % (36-47) L 06/12/24 14:34 MCV 86.6 fl (85-98) 06/12/24 14:34 MCH 27.6 pg (27-33) 06/12/24 14:34 MCHC 31.9 g/dL (30-55) 06/12/24 14:34 RDW 18.0 % (12.1-15.1) H 06/12/24 14:34 Plt Count 404 10^3/cmm (157-399) H 06/12/24 14:34 MPV 8.9 fL (7.4-10.4) 06/12/24 14:34 Neut % (Auto) 58.9 % 06/12/24 14:34 Lymph % (Auto) 28.4 % 06/12/24 14:34 [place] % (Auto) 5.0 % 06/12/24 14:34 Eos % (Auto) 6.8 % 06/12/24 14:34 Baso % (Auto) 0.5 % 06/12/24 14:34 Neut # (Auto) 4.80 10^3/uL (1.8-7.7) 06/12/24 14:34 Lymph # (Auto) 2.3 10^3/uL (0.8-4.8) 06/12/24 14:34 [place] # (Auto) 0.4 10^3/uL (0.2-0.9) 06/12/24 14:34 Eos # (Auto) 0.6 10^3/uL (0.0-0.8) 06/12/24 14:34 Baso # (Auto) 0.0 10^3/uL (0.0-0.1) 06/12/24 14:34 Nucleated RBC % (auto) 0 % 06/12/24 14:34 Nucleated RBCs # 0.0 /100WBC 06/12/24 14:34 Sodium 140 mmol/L (136-145) 06/12/24 14:34 Potassium 4.0 mmol/L (3.5-5.1) 06/12/24 14:34 Chloride 108 mmol/L (98-107) H 06/12/24 14:34 Carbon Dioxide 22 mmol/L (22-29) 06/12/24 14:34 Anion Gap 14.0 (5-19) 06/12/24 14:34 BUN 7 mg/dL (6-20) 06/12/24 14:34 Creatinine 0.5 mg/dL (0.5-0.9) 06/12/24 14:34 GFR Calculation 146.9 mL/min (90-130) H 06/12/24 14:34 Glucose 92 mg/dL (65-115) 06/12/24 14:34 Calculated Osmolality 288 mOsm/kg (285-295) 06/12/24 14:34 Calcium 8.6 mg/dL (8.5-10.5) 06/12/24 14:34 Total Bilirubin 0.2 mg/dL (0.15-1.2) 06/12/24 14:34 AST 13 U/L (0-32) 06/12/24 14:34 ALT 10 U/L (0-33) 06/12/24 14:34 Alkaline Phosphatase 81 U/L (35-105) 06/12/24 14:34 Total Protein 6.2 g/dL (6.6-8.7) L 06/12/24 14:34 Albumin 3.6 g/dL (3.5-5.2) 06/12/24 14:34 Globulin 2.6 g/dL (1.3-4.6) 06/12/24 14:34 Salicylates < 0.3 mg/dL (3-10) L 06/12/24 14:34 Acetaminophen < 5.0 ug/mL (10-30) L 06/12/24 14:34 Ethyl Alcohol < 10 mg/dL (0-10) 06/12/24 14:34 No radiology studies performed this visit Discharge Plan Discharge Patient Disposition: Admitted As Inpatient Admit Provider: Sean Martinez Clinical Impression: Depression Condition: Stable Coding Level of Care Code ED [employer] Visitor for Rosalba Anderson
[2024-06-12 14:43] LABS: Basophils % 0.5 %; Eosinophils # 0.6 10^3/uL (0.0-0.8); Eosinophils % 6.8 %; Hematocrit 35.4 % (36-47); Lymphocytes # 2.3 10^3/uL (0.8-4.8); Lymphocytes % 28.4 %; Mean Corpuscular HGB Conc 31.9 g/dL (30-55); Mean Corpuscular Hemoglobin 27.6 pg (27-33); Mean Corpuscular Volume 86.6 fl (85-98); Mean Platelet Volume 8.9 fL (7.4-10.4); Monocytes # 0.4 10^3/uL (0.2-0.9); Neutrophils % 58.9 %; Nucleated Red Blood Cells % 0 %; Platelet Count 404 10^3/cmm (157-399); Red Blood Count 4.09 10^6/uL (3.85-5.65); White Blood Count 8.14 10^3/uL (3.29-11.43)
[2024-06-12 15:10] LABS: Alanine Aminotransferase 10 U/L (0-33); Albumin Level 3.6 g/dL (3.5-5.2); Alkaline Phosphatase 81 U/L (35-105); Aspartate Amino Transferase 13 U/L (0-32); Blood Urea Nitrogen 7 mg/dL (6-20); Calcium 8.6 mg/dL (8.5-10.5); Carbon Dioxide 22 mmol/L (22-29); Chloride 108 mmol/L (98-107); Creatinine Clr Calc Pharmacy 152.7124; Globulin 2.6 g/dL (1.3-4.6); Glomerular Filtration Rate 146.9 mL/min (90-130); Glucose 92 mg/dL (65-115); Osmolality Calculated 288 mOsm/kg (285-295); Sodium 140 mmol/L (136-145); Total Bilirubin 0.2 mg/dL (0.15-1.2); Total Protein 6.2 g/dL (6.6-8.7)
[2024-06-12 15:12] LABS: Acetaminophen < 5.0 ug/mL (10-30); Alcohol Level < 10 mg/dL (0-10); Salicylate < 0.3 mg/dL (3-10)
[2024-06-12 15:26] VITALS: BP 115/72; PULSE 91; RESP 17; TEMP 36.7; O2SAT 100
[2024-06-12 16:17] LABS: Amphetamines Screen Urine Positive (Negative); Barbiturates Screen Urine Negative (Negative); Benzodiazepines Screen Urine Negative (Negative); Cocaine Screen Urine Negative (Negative); Opiate Screen Urine Negative (Negative); PCP Screen Urine Negative (Negative); THC Screen Urine Positive (Negative)
--- NOTE | 2024-06-12 17:07 | PC.NURSE ---
Patient is 12 weeks , sixth . Patient states that she attempted suicide within the last month by overdosing on Prozac. Patient said that she did not seek treatment until two days later when she started experiencing vaginal bleeding. Patient used meth a couple of days ago; patient says that she is trying to ween herself off of meth. Patient says she has chronic anxiety and chronic depression. patient is not currently suicidal. Patient voices concern for the safety of her unborn baby, saying that increased stress from her home might cause a miscarriage. Patient's BF is toxic .
[2024-06-12] MEDS: nicotine 4 mg lozenge MUCOUS MEM (18:22)
[2024-06-12] MEDS: trazodone 50 mg Tablet PO (20:47)
[2024-06-12 20:48] VITALS: BP 130/77; PULSE 98; RESP 18; TEMP 37.2; O2SAT 100
--- NOTE | 2024-06-13 04:32 | PC.NURSE ---
Patient came to desk and requested a different room mate. Stating that her current room mate was making loud noises, staring at her while she is try it sleep and flipping the light off and on. She stated to the effect that she was not a violent person but that she was very patricio. A stat clean order was put in and room mates changed.
[2024-06-13 04:59] VITALS: BP 100/62; PULSE 115; RESP 18; TEMP 36.8; O2SAT 95
[2024-06-13] MEDS: nicotine 21 mg Patch 1 PATCH TRANSDERMA (10:00)
[2024-06-13] MEDS: PRENATAL VIT NO.130/IRON/FOLIC 1 EACH TABLET PO (10:52)
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
[2024-06-13 14:00] VITALS: BP 104/67; PULSE 81; RESP 16; TEMP 36.6; O2SAT 100
[2024-06-13 20:13] VITALS: BP 124/85; PULSE 75; RESP 15; TEMP 36.4; O2SAT 98
[2024-06-13] MEDS: trazodone 50 mg Tablet PO (20:26)
[2024-06-14 06:00] VITALS: BP 110/66; PULSE 79; RESP 15; TEMP 37; O2SAT 99
[2024-06-14] MEDS: PRENATAL VIT NO.130/IRON/FOLIC 1 EACH TABLET PO (08:13)
[2024-06-14] MEDS: nicotine 4 mg lozenge MUCOUS MEM (11:04)
--- NOTE | 2024-06-14 11:40 | PC.NURSE ---
spoke with labor and delivery about pt needing heart sounds from doppler preformed. she stated that she would get a nurse and have them come down.
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
[2024-06-14 11:51] VITALS: BP 110/66; PULSE 79; RESP 15; TEMP 37; O2SAT 99
--- NOTE | 2024-06-14 12:01 | PC.NURSE ---
Roldan campbell preformed heart tones doppler on pt 150 heart beats per minute.
== END 2024-06-14 12:52 | disposition home or self-care (01) | DRG 832 ==
LOC: ER 14:35 → NP 14:58
PROVIDERS: Admitting Provider Psychiatry & Neurology Psychiatry; Emergency Provider Emergency Medicine; PCP Nurse Practitioner Family; Visit Provider Psychiatry & Neurology Psychiatry
DX: O99.341 Other mental disorders complicating pregnancy, first trimester (principal); F15.20 Other stimulant dependence, uncomplicated; O99.321 Drug use complicating pregnancy, first trimester; R45.851 Suicidal ideations; F33.9 Major depressive disorder, recurrent, unspecified; F60.3 Borderline personality disorder; F44.81 Dissociative identity disorder; F43.12 Post-traumatic stress disorder, chronic; F41.1 Generalized anxiety disorder; Z3A.12 12 weeks gestation of pregnancy; Z91.040 Latex allergy status; Z63.8 Other specified problems related to primary support group; Z62.812 Personal history of neglect in childhood; Z90.49 Acquired absence of other specified parts of digestive tract; F17.200 Nicotine dependence, unspecified, uncomplicated; Z63.5 Disruption of family by separation and divorce; Z91.52 Personal history of nonsuicidal self-harm; O99.331 Smoking (tobacco) complicating pregnancy, first trimester
CPT/HCPCS: 36415; 80053; 80306; 80307; 85025; 99285

== ENCOUNTER 2024-08-04 11:50 | Emergency (ER) | payer BC, MEDICAID, SELFPAY ==
[2024-08-04 11:54] VITALS: BP 118/65; PULSE 93; RESP 16; TEMP 36.8; O2SAT 97
[2024-08-04 12:01] VITALS: BP 118/65; PULSE 96; O2SAT 99
--- NOTE | 2024-08-04 12:03 | USR_ITS ---
PROCEDURE INFORMATION: Exam: US , Limited Exam date and time: 08/04/2024 12:33 PM Age: 28 years old Clinical indication: Screening exam; Routine US, uterus; Additional info: Right flank and low abd pain, 20 weeks LABS AND CLINICAL REPORTS: Gestational age (Established): 21 w 0 d Estimated due date (Established): 12/15/2024 TECHNIQUE: Imaging protocol: Real-time ultrasound of the maternal uterus with image documentation. Exam focused on the clinical indication. COMPARISON: US OB limited [id number] 05/30/2024 5:36 PM FINDINGS: Gestation: Single live intrauterine gestation. heart rate: 163 bpm presentation and position: Vertex presentation. Placenta: Anterior placenta without obvious previa. Amniotic fluid index: GIANFRANCO is 19.06 cm. This is normal. BIOMETRY: Gestational age (AUA): The composite ultrasound age is 19 weeks and 4 days. Menstrual dating estimates the gestational age to be 21 weeks and 0 days. Estimated due date (AUA): Estimated date of delivery by ultrasound measurements is December 25, 2024. Estimated date of delivery by menstrual dating is December 15, 2024. Estimated weight: 226.69 g. EFW by AC, BPD, FL, HC, [place] 1985. Less than 3 percentile. Biparietal diameter (BPD): 5.09 cm. EGA (BPD) is 21 w 3 d. 66.2 % percentile Head circumference (HC): 18.73 cm. EGA (HC) is 21 w 0 d. 42.5 % percentile Abdominal circumference (AC): 8.52 cm. EGA (AC) is 14 w 6 d. 3 % percentile Femur length (FL): 3.46 cm. EGA (FL) is 20 w 6 d. 37.2 % percentile HC/AC: 2.2. (Normal range: 1.08 - 1.26) FL/HC: 18.47. (Normal range: 16.5 - 19.16) FL/BPD: 67.98 FL/AC: 40.61 MATERNAL: Cervix: Cervical length measures 3.9 cm. Unremarkable. Right kidney: No hydronephrosis maternal right kidney. US/US OB limited [id number] IMPRESSION: 1. Estimated weight is the less than 3 percentile. 2. A survey is not performed. 3. Otherwise, unremarkable obstetrical ultrasound.
--- NOTE | 2024-08-04 12:08 | W.ED.BACK ---
HPI - Back Pain/Injury General: Chief Complaint: Back Pain/Injury Stated Complaint: rt flank pain Time Seen by Provider: 08/04/24 11:55 History of Present Illness: 28-year-old female who presents emergency room with left flank and lower abdominal pain by ambulance. She is about 20 weeks . Former IV drug user who has stopped using for this . She has had increased urinary frequency with decreased output each urination. No blood. She has noticed a foul odor. Related Data Previous Rx's Medication Instructions Recorded cefdinir 300 mg capsule 300 mg PO BID 10 days #20 caps 08/04/24 ondansetron 8 mg disintegrating 8 mg PO Q6H #14 tabs 08/04/24 tablet Allergies Allergy/AdvReac Type Severity Reaction Status Date / Time pineapple Allergy Mild tingling Verified 08/04/24 12:02 of tongue/light swelling latex Allergy ALGY-Hives Verified 08/04/24 12:02 Review of Systems Narrative: Constitutional symptoms: Negative except as documented in HPI. Skin symptoms: Negative except as documented in HPI. Eye symptoms: Negative except as documented in HPI. ENMT symptoms: Negative except as documented in HPI. Respiratory symptoms: Negative except as documented in HPI. Cardiovascular symptoms: Negative except as documented in HPI. Gastrointestinal symptoms: Negative except as documented in HPI. Genitourinary symptoms: Negative except as documented in HPI. Musculoskeletal symptoms: Negative except as documented in HPI. Neurologic symptoms: Negative except as documented in HPI. Psychiatric symptoms: Negative except as documented in HPI. Endocrine symptoms: Negative except as documented in HPI. [facility] PFSH: Medical History Overdose of antipsychotic On combination antipsychotic drug therapy Stimulant use disorder Nicotine dependence, cigarettes, uncomplicated VIRY (generalized anxiety disorder) Major depressive disorder, recurrent, moderate Chronic post-traumatic stress disorder (PTSD) Psychiatric care History of atrial septal defect ADHD Depression Anxiety History of reactive attachment disorder PTSD (post-traumatic stress disorder) Peptic ulcer disease Seizure disorder Surgical History History of cholecystectomy Family History Father Diabetes Heart disease Daughter Heart murmur Other Adopted Social History Smoking and tobacco/nicotine status: current every day tobacco/nicotine user Second hand smoke exposure: Yes Substance/Drug Use: former Additional social history: Drug use: Marijuana daily--> has medical card that is scanned into chart Adopted: Yes Caregiver/support person: No Lives independently: Yes Housing: House Marital status: Legally Number of children: 4 service: No Pets and animals: Yes Do you think of yourself as: Straight/Heterosexual Physical Exam Narrative: EXAM NARRATIVE: General: Alert, no acute distress. Skin: Warm, dry. Head: Normocephalic, atraumatic. Neck: Supple, trachea midline. Eye: Extraocular movements are intact. Ears, nose, mouth and throat: mucosa moist. Cardiovascular: Regular, Normal peripheral perfusion. Respiratory: Lungs are clear to auscultation, respirations are non-labored, breath sounds are equal, Symmetrical chest wall expansion. Gastrointestinal: Soft, left flank pain, Non distended Musculoskeletal: Normal ROM, no deformity. Neurological: Alert and oriented, No focal neurological deficit observed. Psychiatric: Cooperative, appropriate mood & affect. Course Vital Signs: Vital signs: Vital Signs Temperature 98.3 F 08/04/24 11:54 Pulse Rate 96 08/04/24 12:01 Respiratory Rate 16 08/04/24 11:54 Blood Pressure 118/65 08/04/24 12:01 Pulse Oximetry 99 08/04/24 12:01 Oxygen Delivery Me thod Room Air 08/04/24 12:01 MDM - Back Pain/Injury Medical Decision Making Medical decision making: Differential diagnosis including but not limited to and based on the above HPI, review of systems and physical exam: Ureterolithiasis. Urinary tract infection. Appendicitis. Cholecystis. Musculoskeletal / back pain. Pyelonephritis Orders placed to evaluate differential diagnosis based on the above differential, HPI and physical exam Lab Review: Laboratory results were reviewed and interpreted by myself the emergency room physician. No leukocytosis. No significant anemia. BUN and creatinine are normal at 6 and 0.5. Urinalysis shows a significant UTI with some mild hematuria. Nitrate positive. Obstetric ultrasound: Low weight at less than 3%. Baby is active. Heart rate is 178. There is also a significant subchorionic bleed that is known. This was reviewed and interpreted by myself the emergency room physician. I also reviewed the radiology report. I reviewed the patient's medical record. Reexamination: Patient remained stable. No increased work of breathing. No altered mental status. No focal motor deficits. Patient being discharged to OB for evaluation and heart tone monitoring. Concerning ultrasound. Likely she changes follow-up from there with her OB next week. Assessment and plan: Urinary tract infection Low weight fetus - Discharged home - Discussed findings and plan with patient. Answered any questions. - All laboratory values were reviewed and interpreted personally by myself, the ER physician - All imaging was reviewed and interpreted personally by myself, the ER physician. - Evaluation and treatment of this problem were appropriate in the emergency setting Labs 08/04/24 13:36 08/04/24 13:36 Radiology Impressions Obstetrics Ultrasound 08/04/24 12:03 IMPRESSION: 1. Estimated weight is the less than 3 percentile. 2. A survey is not performed. 3. Otherwise, unremarkable obstetrical ultrasound. Laboratory Results WBC 10.55 10^3/uL (3.29-11.43) 08/04/24 13:36 RBC 3.67 10^6/uL (3.85-5.65) L 08/04/24 13:36 Hgb 10.40 g/dL (11.27-16.99) L 08/04/24 13:36 Hct 32.6 % (36-47) L 08/04/24 13:36 MCV 88.8 fl (85-98) 08/04/24 13:36 MCH 28.3 pg (27-33) 08/04/24 13:36 MCHC 31.9 g/dL (30-55) 08/04/24 13:36 RDW 17.3 % (12.1-15.1) H 08/04/24 13:36 Plt Count 230 10^3/cmm (157-399) 08/04/24 13:36 MPV 9.4 fL (7.4-10.4) 08/04/24 13:36 Neut % (Auto) 82.8 % 08/04/24 13:36 Lymph % (Auto) 10.9 % 08/04/24 13:36 [place] % (Auto) 5.0 % 08/04/24 13:36 Eos % (Auto) 0.6 % 08/04/24 13:36 Baso % (Auto) 0.3 % 08/04/24 13:36 Neut # (Auto) 8.74 10^3/uL (1.8-7.7) H 08/04/24 13:36 Lymph # (Auto) 1.2 10^3/uL (0.8-4.8) 08/04/24 13:36 [place] # (Auto) 0.5 10^3/uL (0.2-0.9) 08/04/24 13:36 Eos # (Auto) 0.1 10^3/uL (0.0-0.8) 08/04/24 13:36 Baso # (Auto) 0.0 10^3/uL (0.0-0.1) 08/04/24 13:36 Nucleated RBC % (auto) 0 % 08/04/24 13:36 Nucleated RBCs # 0.0 /100WBC 08/04/24 13:36 Sodium 134 mmol/L (136-145) L 08/04/24 13:36 Potassium 3.4 mmol/L (3.5-5.1) L 08/04/24 13:36 Chloride 103 mmol/L (98-107) 08/04/24 13:36 Carbon Dioxide 21 mmol/L (22-29) L 08/04/24 13:36 Anion Gap 13.4 (5-19) 08/04/24 13:36 BUN 6 mg/dL (6-20) 08/04/24 13:36 Creatinine 0.5 mg/dL (0.5-0.9) 08/04/24 13:36 GFR Calculation 146.9 mL/min (90-130) H 08/04/24 13:36 Glucose 85 mg/dL (65-115) 08/04/24 13:36 Calculated Osmolality 275 mOsm/kg (285-295) L 08/04/24 13:36 Lactic Acid 0.8 mmol/L (0.5-2.2) 08/04/24 13:36 Calcium 8.3 mg/dL (8.5-10.5) L 08/04/24 13:36 Total Bilirubin 0.2 mg/dL (0.15-1.2) 08/04/24 13:36 AST 6 U/L (0-32) 08/04/24 13:36 ALT 6 U/L (0-33) 08/04/24 13:36 Alkaline Phosphatase 92 U/L (35-105) 08/04/24 13:36 Total Protein 5.9 g/dL (6.6-8.7) L 08/04/24 13:36 Albumin 2.9 g/dL (3.5-5.2) L 08/04/24 13:36 Globulin 3.0 g/dL (1.3-4.6) 08/04/24 13:36 Ser , Semi-Qnt 74931.00 mIU/mL 08/04/24 13:36 Urine Color Yellow (Yellow) 08/04/24 12:12 Urine Appearance Turbid (CLEAR) A 08/04/24 12:12 Urine pH 6.0 (5-7) 08/04/24 12:12 Ur Specific [place] 1.013 (1.005-1.030) 08/04/24 12:12 Urine Protein 2+ (Negative) A 08/04/24 12:12 Urine Glucose (UA) Negative (Normal) 08/04/24 12:12 Urine Ketones 2+ (Negative) H 08/04/24 12:12 Urine Blood 2+ (Negative) A 08/04/24 12:12 Urine Nitrate Positive (Negative) A 08/04/24 12:12 Urine Bilirubin Negative (Negative) 08/04/24 12:12 Urine Urobilinogen 1.0 mg/dL (Negative) 08/04/24 12:12 Ur Leukocyte Esterase 3+ (Negative) A 08/04/24 12:12 Urine RBC 6-10 /hpf (0-2) 08/04/24 12:12 Urine WBC >100 /hpf (0-5) H 08/04/24 12:12 Ur Squamous Epith Cells 51-100 /hpf (0-5) 08/04/24 12:12 Amorphous Sediment Not Reportable 08/04/24 12:12 Urine Bacteria 4+ /hpf (NONE) H 08/04/24 12:12 Hyaline Casts 4.11 /lpf 08/04/24 12:12 All radiology interpretation(s) finalized by discharge Discharge Plan Discharge Patient Disposition: Home Clinical Impression: Urinary tract infection affecting Condition: Stable Prescriptions: New ondansetron 8 mg tablet,disintegrating 8 mg PO Q6H Qty: 14 0RF Rx Instructions: Take 1/2-1 tab every 6 hours as needed for nausea and vomiting cefdinir 300 mg capsule 300 mg PO BID 10 Days Qty: 20 0RF Discharge Orders: Discharge ED (Routine); Ordered 08/04/24 Ordered By: Ivett Fraga Referrals: Janel Tran FNP-C [Primary Care Provider] - Discharge Diet: Usual diet Discharge Activity: Increase activity as tolerated Patient Instructions: Urinary Tract Infection in (ED), Opioid Safety, Pain Management Activity Restrictions/Additional Instructions: There is concern for low weight in your fetus. You need to follow-up with your echocardiography technologist as soon as possible. Thank you for choosing [facility] for your healthcare needs today. Please realize this is an emergency room and that we are providing you with a medical screening exam and this may not be complete and all inclusive of all the testing and or work up that you may need to determine your ailment or severity of your illness. You have been screened and evaluated and felt safe for discharge. Health conditions do change or evolve sometimes and as such it is important that you follow up with your Primary Doctor to be re checked, 3-5 days is a general good time frame for follow up. You are always welcome to return to the ED for re assessment if your symptoms are worsening or you have new concerns Coding Level of Care Code ED Application Software Engineer for Rosalba Anderson
[2024-08-04 12:20] LABS: Bilirubin Urine Negative (Negative); Blood Urine 2+ (Negative); Glucose Urine UA Negative (Normal); Ketones Urine 2+ (Negative); Leukocyte Esterase Urine 3+ (Negative); Nitrate Urine Positive (Negative); Protein Urine 2+ (Negative); Specific Gravity, Urine 1.013 (1.005-1.030); Urine Appearance Turbid (CLEAR); Urine Color Yellow (Yellow)
[2024-08-04 12:25] LABS: Bacteria Urine 4+ /hpf; Hyaline Casts Urine 4.11 /lpf; Squamous Epithelial Cell Urine 51-100 /hpf (0-5); WBC Urine >100 /hpf (0-5)
[2024-08-04 12:47] LABS: Add Urine Culture? Yes
--- NOTE | 2024-08-04 12:55 | PC.PHAR ---
Pt states takes no home medications. External med list shows 05/14/24 Flexeril 10mg tid, Trazodone 100mg hs, Fluoxetine 20mg daily, Aripiprazole 5mg daily. Verified with [facility]-medications were picked up.
[2024-08-04 13:45] LABS: Basophils % 0.3 %; Eosinophils # 0.1 10^3/uL (0.0-0.8); Eosinophils % 0.6 %; Hematocrit 32.6 % (36-47); Lymphocytes # 1.2 10^3/uL (0.8-4.8); Lymphocytes % 10.9 %; Mean Corpuscular HGB Conc 31.9 g/dL (30-55); Mean Corpuscular Hemoglobin 28.3 pg (27-33); Mean Corpuscular Volume 88.8 fl (85-98); Mean Platelet Volume 9.4 fL (7.4-10.4); Monocytes # 0.5 10^3/uL (0.2-0.9); Neutrophils # 8.74 10^3/uL (1.8-7.7); Neutrophils % 82.8 %; Nucleated Red Blood Cells % 0 %; Platelet Count 230 10^3/cmm (157-399); Red Blood Count 3.67 10^6/uL (3.85-5.65); Red Cell Distribution Width 17.3 % (12.1-15.1); White Blood Count 10.55 10^3/uL (3.29-11.43)
[2024-08-04 14:03] LABS: Alanine Aminotransferase 6 U/L (0-33); Albumin Level 2.9 g/dL (3.5-5.2); Alkaline Phosphatase 92 U/L (35-105); Anion Gap 13.4 (5-19); Aspartate Amino Transferase 6 U/L (0-32); Blood Urea Nitrogen 6 mg/dL (6-20); Calcium 8.3 mg/dL (8.5-10.5); Carbon Dioxide 21 mmol/L (22-29); Chloride 103 mmol/L (98-107); Creatinine Clr Calc Pharmacy 145.5153; Glomerular Filtration Rate 146.9 mL/min (90-130); Glucose 85 mg/dL (65-115); Lactic Sepsis W/Reflex 0.8 mmol/L (0.5-2.2); Osmolality Calculated 275 mOsm/kg (285-295); Potassium 3.4 mmol/L (3.5-5.1); Sodium 134 mmol/L (136-145); Total Bilirubin 0.2 mg/dL (0.15-1.2); Total Protein 5.9 g/dL (6.6-8.7)
[2024-08-04] MEDS: cefTRIAXone 1,000 mg SDV 1000 MG IVP (14:10)
[2024-08-04 16:06] VITALS: BP 121/63; PULSE 93; O2SAT 97
== END 2024-08-04 16:14 | disposition home or self-care (01) ==
PROVIDERS: Emergency Provider Emergency Medicine; PCP Nurse Practitioner Family
DX: O23.40 Unspecified infection of urinary tract in pregnancy, unspecified trimester (principal); N39.0 Urinary tract infection, site not specified; Z72.0 Tobacco use
CPT/HCPCS: 36415; 76815; 80053; 81001; 83605; 84702; 85025; 87040; 87077; 87086; 87186; 96374; 99284; J0696

== ENCOUNTER 2024-08-04 16:03 | Outpatient (CLI) | payer BC, MEDICAID, SELFPAY ==
[2024-08-04 16:10] VITALS: BMI 26.6
[2024-08-04 16:23] VITALS: BP 122/60; PULSE 96
[2024-08-04 16:38] VITALS: BP 116/59; PULSE 99
--- NOTE | 2024-08-04 16:47 | PC.NURSE ---
Spoke with patient regarding psych admission in May patient states she did not try and kill herself, she just wanted an emotional outlet and cut herself superficially. Patient states her last suicide attempt was over a year ago and she denies suicidal thoughts today and states she's over all that now and wants to be healthy for her baby.
[2024-08-04 17:04] LABS: Amphetamines Screen Urine Positive (Negative); Barbiturates Screen Urine Negative (Negative); Benzodiazepines Screen Urine Negative (Negative); Cocaine Screen Urine Negative (Negative); Opiate Screen Urine Negative (Negative); PCP Screen Urine Negative (Negative); THC Screen Urine Positive (Negative)
[2024-08-05 05:16] VITALS: BP 151/87; PULSE 82
== END 2024-08-05 07:33 | disposition home or self-care (01) ==
LOC: OPOB 16:11 → OBGYN 16:12
PROVIDERS: PCP Nurse Practitioner Family; Visit Provider Family Medicine
DX: O26.899 Other specified pregnancy related conditions, unspecified trimester (principal); Z3A.00 Weeks of gestation of pregnancy not specified
CPT/HCPCS: 80306; 99211

== ENCOUNTER 2024-09-03 05:37 | Outpatient (CLI) | payer BC, MEDICAID, SELFPAY ==
[2024-09-03] VITALS (11 sets, daily range): BP systolic 103–136; BP diastolic 56–82; PULSE 88–107; BMI 27.6
[2024-09-03 06:26] LABS: Bilirubin Urine Negative (Negative); Blood Urine 2+ (Negative); Glucose Urine UA Negative (Normal); Ketones Urine 3+ (Negative); Leukocyte Esterase Urine 3+ (Negative); Nitrate Urine Negative (Negative); Protein Urine 2+ (Negative); Specific Gravity, Urine 1.015 (1.005-1.030); Urine Appearance Cloudy (CLEAR); Urine Color Dark Yellow (Yellow); pH Urine 6.5 (5-7)
[2024-09-03 06:31] LABS: Add Urine Microscopic? YES; Bacteria Urine 2+ /hpf; RBC Urine 51-100 /hpf (0-2); WBC Urine 51-100 /hpf (0-5)
--- NOTE | 2024-09-03 06:39 | PC.NURSE ---
Patient states there is no running water in her trailer and has not been since moving there, patient does not remember when she moved there. Patient states there is water in the main house on the property but this is not where she is staying.
[2024-09-03 06:42] LABS: Basophils % 0.2 %; Eosinophils # 0.1 10^3/uL (0.0-0.8); Hematocrit 31.3 % (36-47); Lymphocytes # 1.7 10^3/uL (0.8-4.8); Lymphocytes % 11.9 %; Mean Corpuscular HGB Conc 31.6 g/dL (30-55); Mean Corpuscular Hemoglobin 28.4 pg (27-33); Mean Corpuscular Volume 89.7 fl (85-98); Mean Platelet Volume 9.5 fL (7.4-10.4); Monocytes # 0.7 10^3/uL (0.2-0.9); Monocytes % 5.1 %; Neutrophils # 11.68 10^3/uL (1.8-7.7); Neutrophils % 80.9 %; Nucleated Red Blood Cells % 0 %; Platelet Count 344 10^3/cmm (157-399); Red Blood Count 3.49 10^6/uL (3.85-5.65); Red Cell Distribution Width 16.4 % (12.1-15.1); White Blood Count 14.42 10^3/uL (3.29-11.43)
[2024-09-03 06:44] LABS: Add Urine Culture? No
[2024-09-03 06:58] LABS: Alanine Aminotransferase 8 U/L (0-33); Alkaline Phosphatase 161 U/L (35-105); Anion Gap 14.6 (5-19); Aspartate Amino Transferase 7 U/L (0-32); Blood Urea Nitrogen 5 mg/dL (6-20); C Reactive Protein 112.2 mg/L (0.0-4.9); Calcium 8.2 mg/dL (8.5-10.5); Carbon Dioxide 18 mmol/L (22-29); Chloride 104 mmol/L (98-107); Creatinine Clr Calc Pharmacy 260.9651; Globulin 3.2 g/dL (1.3-4.6); Glucose 96 mg/dL (65-115); Osmolality Calculated 273 mOsm/kg (285-295); Potassium 3.6 mmol/L (3.5-5.1); Sodium 133 mmol/L (136-145); Total Bilirubin 0.4 mg/dL (0.15-1.2); Total Protein 6.2 g/dL (6.6-8.7)
[2024-09-03] MEDS: cefTRIAXone 1,000 mg SDV 1000 MG IVP (07:36)
[2024-09-03 08:03] LABS: Amphetamines Screen Urine Positive (Negative); Barbiturates Screen Urine Negative (Negative); Benzodiazepines Screen Urine Negative (Negative); Cocaine Screen Urine Negative (Negative); Opiate Screen Urine Negative (Negative); PCP Screen Urine Negative (Negative); THC Screen Urine Positive (Negative)
[2024-09-03 10:07] LABS: Neisseria Gonorrhea NOT DETECTED
[2024-09-03 16:44] LABS: Chlamydia Trachomatis DETECTED
== END 2024-09-03 09:13 | disposition home or self-care (01) ==
LOC: OPOB 05:38 → OBGYN 05:39
PROVIDERS: PCP Nurse Practitioner Family; Visit Provider Family Medicine
DX: O26.899 Other specified pregnancy related conditions, unspecified trimester (principal); Z3A.00 Weeks of gestation of pregnancy not specified; N89.8 Other specified noninflammatory disorders of vagina; R10.31 Right lower quadrant pain
CPT/HCPCS: 80053; 80306; 81001; 85025; 86140; 87491; 87591; 99211; J0696

== ENCOUNTER 2024-10-03 11:15 | Outpatient (CLI) | payer BC, MEDICAID, SELFPAY ==
--- NOTE | 2024-10-03 11:25 | USR_ITS ---
PROCEDURE INFORMATION: Exam: US After First Trimester, Transabdominal Exam date and time: 10/03/2024 12:30 PM Age: 29 years old Clinical indication: Screening exam; Routine US, uterus; Additional info: Anatomy scan, patient not coming to visits so doctor wants LABS AND CLINICAL REPORTS: Gestational age (Established): 29 w 4 d Estimated due date (Established): 12/15/2024 TECHNIQUE: Imaging protocol: Real-time transabdominal obstetrical ultrasound of the maternal pelvis and a second or third trimester with image documentation. COMPARISON: US OB limited [id number] 08/04/2024 12:33 PM FINDINGS: Gestation: Single live intrauterine gestation. heart rate: 122 bpm presentation and position: Vertex Placenta: Unremarkable. No subchorionic bleed. Placenta is anterior. Amniotic fluid (Qualitative): Amniotic fluid is normal for gestational age. Amniotic fluid index: Maximum vertical pocket 4.9 cm ANATOMY: midline falx: Normal cerebellum: Normal lateral ventricles: Normal cisterna magna: Normal choroid plexus: Normal face: Obscured by position heart four-chamber view, heart size and position: Normal heart right ventricular outflow tract: Obscured by position heart left ventricular outflow tract: Normal kidneys: Normal stomach: Normal urinary bladder: Normal spine: Normal Umbilical cord and insertion: Normal upper limbs: Normal lower limbs: Normal external genitalia: Obscured by position BIOMETRY: Gestational age (AUA): 29 weeks 3 days Estimated due date (AUA): 12/16/2024 Estimated weight: 1359.46 g. EFW by AC, BPD, FL, HC, [place] 1985; 26 percentile Biparietal diameter (BPD): 7.39 cm. EGA (BPD) is 29 w 5 d. 39.9 % percentile Head circumference (HC): 26.71 cm. EGA (HC) is 29 w 1 d. 8.8 % percentile Abdominal circumference (AC): 25 cm. EGA (AC) is 29 w 2 d. 33.2 % percentile Femur length (FL): 5.55 cm. EGA (FL) is 29 w 2 d. 25.9 % percentile HC/AC: 1.07. (Normal range: 0.98 - 1.2) FL/HC: 20.78. (Normal range: 19.43 - 21.06) FL/BPD: 75.1. (Normal range: 71 - 87) FL/AC: 22.2. (Normal range: 20 - 24) MATERNAL: Uterus: Unremarkable. Cervix: Cervical length measures 3.9 cm. Right ovary/adnexa: Obscured by lack of adequate acoustic window. Left ovary/adnexa: Obscured by lack of adequate acoustic window. Intraperitoneal space: No intraperitoneal free fluid. US/US OB >= 14 weeks fetus [id number] IMPRESSION: 1. Single live intrauterine with normal heart rate. 2. Estimated gestational age 29 weeks 3 days with estimated date of delivery 12/16/2024. 3. Estimated weight now 26 percentile 4. Right ventricular outflow tract, face, and external genitalia obscured by positioning. Remaining anatomy within normal limits.
[2024-10-03 11:32] VITALS: BP 126/75; PULSE 96
[2024-10-03 11:52] VITALS: BP 110/57; PULSE 90
[2024-10-03 12:12] VITALS: BP 100/58; PULSE 86
[2024-10-03] MEDS: AZITHROMYCIN ADD-Vantage 500 MG in 0.9% NaCl ADD-Vantage 250 ML 250 MG IV ×2 (12:20→13:01)
== END 2024-10-03 13:35 | disposition home or self-care (01) ==
LOC: OPOB 11:17 → OBGYN 11:19
PROVIDERS: PCP Nurse Practitioner Family; Visit Provider Family Medicine
DX: O26.899 Other specified pregnancy related conditions, unspecified trimester (principal); Z3A.00 Weeks of gestation of pregnancy not specified
CPT/HCPCS: 36415; 59025; 76805; 99211; J0456; J7050

== ENCOUNTER 2024-11-17 11:42 | Inpatient (IN) | payer BC, MEDICAID, SELFPAY ==
[2024-11-17] VITALS (17 sets, daily range): BP systolic 100–148; BP diastolic 56–88; PULSE 68–104; RESP 18; TEMP 36.7–36.8; O2SAT 99; BMI 29.2
--- NOTE | 2024-11-17 12:10 | PM.OBGYHP ---
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 PMHx includes gestational diabetes in prior , methamphetamine use. course complicated by poor care, methamphetamine use, chlamydia infection-treated. Complains of contractions for 2 days and LOF starting at approx 10:30am today. Reports good movement. care was insufficient with only 2-3 visits through course, last visit 10/03/24 She reports last meth use about 2 weeks ago. Denies other medication or drug use apart from one dose of ibuprofen this morning accidentally instead of tylenol. Labs Blood type OB HPI: A (+) positive Rubella: Immune RPR: Negative GBS: Unknown HBsAG: Negative Other Lab Information: GC/Chlamydia negative on initial visit, positive at a later triage visit and treated with azithromycin Hep C ab negative HIV negative 1hr GTT failed without patient follow-up Review of Systems Const: Denies: fever(s) or chills Card: Denies: chest pain or palpitations Resp: Denies: dyspnea Medications/Allergies Home Medications ?Medication ?Instructions ?Recorded ?Confirmed ?Last Taken ?Type ondansetron 8 mg disintegrating 8 mg PO Q6H #14 tabs 08/04/24 11/17/24 Unknown Rx tablet Allergies Allergy/AdvReac Type Severity Reaction Status Date / Time pineapple Allergy Mild tingling Verified 08/04/24 12:02 of tongue/light swelling latex Allergy ALGY-Hives Verified 08/04/24 12:02 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: Medical History Overdose of antipsychotic On combination antipsychotic drug therapy Stimulant use disorder Nicotine dependence, cigarettes, uncomplicated VIRY (generalized anxiety disorder) Major depressive disorder, recurrent, moderate Chronic post-traumatic stress disorder (PTSD) History of atrial septal defect ADHD Depression Anxiety History of reactive attachment disorder PTSD (post-traumatic stress disorder) Peptic ulcer disease Seizure disorder Surgical History History of cholecystectomy Family History Father Diabetes Heart disease Daughter Heart murmur Other Adopted Social History Smoking and tobacco/nicotine status: current every day tobacco/nicotine user Second hand smoke exposure: Yes Substance/Drug Use: former Additional social history: Drug use: Marijuana daily--> has medical card that is scanned into chart Adopted: Yes Caregiver/support person: No Lives independently: Yes Housing: House Marital status: Legally Number of children: 4 service: No Pets and animals: Yes Do you think of yourself as: Straight/Heterosexual Other Female Reproductive History: Hx Age of Menarche: 13 History History History 12 Term 4 1 Miscarriages/Ectopic 5 Living Children 5 Physical Exam Const: COMMON NORMALS: alert OTHER: unkempt, pain with contractions Resp: COMMON NORMALS: normal respiratory effort Cardio: COMMON NORMALS: regular rate, regular rhythm, S1 normal heart sound present and S2 normal heart sound present Extremity: OTHER: No LE edema Psych: OTHER: poor insight Data 11/17/24 12:37 Results Labs OB ([facility]): Obstetrics US 08/04/24 Blood Type A Positive 11/17/24 Antibody Screen Negative 11/17/24 Urine Opiates Screen Negative ng/mL (Negative) 09/03/24 Ur Barbiturates Screen Negative ng/mL (Negative) 09/03/24 Ur Phencyclidine Scrn Negative ng/mL (Negative) 09/03/24 Ur Amphetamines Screen Positive ng/mL (Negative) H 09/03/24 U Benzodiazepines Scrn Negative ng/mL (Negative) 09/03/24 Urine Cocaine Screen Negative ng/mL (Negative) 09/03/24 U Marijuana (THC) Screen Positive ng/mL (Negative) H 09/03/24 Micro Urine Specimen 08/04/24 OB Ultrasound Initial US in ED 05/30/24 showed 11w4d US in ED 08/04/24 with concern for IUGR- weight 3rd percentile US 10/03/24 weight 26th percentile A&P Assessment and plan (1) Active labor: (2) labor: (3) Methamphetamine dependence: (4) Late care: Plan 29yo at 36w0d by 11wk US presenting for labor and ROM. RASHAAD 12/15/24 Category I FHT. SVE /3, cephalic Admit for labor. Routine CBC, blood typing. GBS ppx due to GBS unknown and . PDMP PDMP Reviewed: Not Reviewed Attestations Medical Necessity Statement*: Preeti Moses's hospital stay will require greater than 2 midnights for labor and delivery and care. Coding Level of Care Code Acute Code for Chg Fwd Diagnoses Active labor labor O60.00 Methamphetamine dependence F15.20 Late care O09.30
[2024-11-17] MEDS: ampicillin 2,000 MG in sodium chloride 0.9% (plus) 50 ML 100 MG IV (12:21)
[2024-11-17 12:49] LABS: Basophils # 0.1 10^3/uL (0.0-0.1); Basophils % 0.3 %; Eosinophils # 0.1 10^3/uL (0.0-0.8); Eosinophils % 0.8 %; Hematocrit 32.2 % (36-47); Lymphocytes # 1.2 10^3/uL (0.8-4.8); Lymphocytes % 8.3 %; Mean Corpuscular Volume 84.5 fl (85-98); Mean Platelet Volume 10.5 fL (7.4-10.4); Monocytes # 0.7 10^3/uL (0.2-0.9); Monocytes % 4.8 %; Neutrophils % 85.5 %; Nucleated Red Blood Cells % 0 %; Platelet Count 290 10^3/cmm (157-399); Red Blood Count 3.81 10^6/uL (3.85-5.65); Red Cell Distribution Width 16.1 % (12.1-15.1); White Blood Count 14.49 10^3/uL (3.29-11.43)
--- NOTE | 2024-11-17 13:58 | P.PCNOB_ITS ---
Delivery Note: Date of delivery: November 17, 2024 Pre-delivery diagnoses: labor Spontaneous Rupture of Membranes Methamphetamine abuse Post-delivery diagnoses: delivery of viable male Procedure: Spontaneous Vaginal Delivery Delivering Physician: Ioana Manuel DO Estimated blood loss (mL): 250 Pre-Delivery Course: Admitted on 11/17/24 in spontaneous labor. Initial SVE 8/90/-3. 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 heart tones Category I. She was started on ampicillin due to GBS unknown. She quickly progressed to complete. Delivery: Patient progressed to complete. On entering the room noted patient was spontaneously pushing. Patient placed in lithotomy position. Patient pushed with adequate effort. Head delivered in EYAL position, no nuchal cord was present. Shoulders and rest of body delivered without difficulty with no anesthesia. Mouth and nares bulb suctioned. Cord clamped and cut after 1 minute delay. placed on maternal abdomen. Placenta spontaneously delivered. Pitocin started. Fundus was noted to be firm with massage. The vagina and cervix were inspected and bilateral periurethral abrasions noted to be hemostatic and not requiring repair were noted. Urine sample with straight cath and vaginal swab collected. Fundus was again noted to be firm. Male born at 1309 with 8/9 weighing 6 pounds 2 ounces and measuring 18.25 in length Placenta noted to be intact with centrally inserted umbilical cord with 3 vessels and noted to be intact. Complications: Maternal none Infant none History History History 12 Term 4 2 Miscarriages/Ectopic 6 Living Children 6 A&P Assessment and plan (1) Spontaneous vaginal delivery: (2) delivery: (3) Anemia: (4) Methamphetamine dependence: PDMP PDMP Reviewed: Not Reviewed Coding Level of Care Code Acute Code for Chg Fwd Diagnoses Spontaneous vaginal delivery O80 delivery O60.10X0 Anemia D64.9 Methamphetamine dependence F15.20
[2024-11-17 14:13] LABS: Amphetamines Screen Urine Positive (Negative); Barbiturates Screen Urine Negative (Negative); Benzodiazepines Screen Urine Negative (Negative); Cocaine Screen Urine Negative (Negative); Opiate Screen Urine Negative (Negative); PCP Screen Urine Negative (Negative); THC Screen Urine Positive (Negative)
[2024-11-17 14:47] LABS: Trichomonas vaginalis (PCR) DETECTED
[2024-11-17 15:21] LABS: Chlamydia Trachomatis NOT DETECTED; Neisseria Gonorrhea NOT DETECTED
[2024-11-17] MEDS: ibuprofen 800 mg tablet PO ×2 (16:29→20:02)
[2024-11-17] MEDS: benzocaine-menthol 78 gm Canister 1 SPRAY TOPICAL (16:30)
[2024-11-17] MEDS: metroNIDAZOLE 500 MG Tablet PO (17:25)
[2024-11-17] MEDS: docusate sodium 100 mg Capsule PO (20:02)
[2024-11-17] MEDS: nicotine 21 mg Patch 1 PATCH TRANSDERMA (22:10)
[2024-11-18 02:35] LABS: Hematocrit 24.2 % (36-47); Mean Corpuscular HGB Conc 31.4 g/dL (30-55); Mean Corpuscular Hemoglobin 27.6 pg (27-33); Mean Platelet Volume 11.6 fL (7.4-10.4); Platelet Count 247 10^3/cmm (157-399); Red Blood Count 2.75 10^6/uL (3.85-5.65); Red Cell Distribution Width 16.1 % (12.1-15.1)
[2024-11-18 03:26] VITALS: BP 114/70; PULSE 91; RESP 18; TEMP 36.4; O2SAT 98
[2024-11-18] MEDS: PRENATAL VIT NO.130/IRON/FOLIC 1 EACH TABLET PO (09:40)
[2024-11-18] MEDS: ferrous sulfate EC 325 mg Tablet PO (09:40)
[2024-11-18] MEDS: ibuprofen 800 mg tablet PO ×2 (09:40→16:21)
[2024-11-18] MEDS: metroNIDAZOLE 500 MG Tablet PO ×2 (09:40→18:07)
[2024-11-18] MEDS: docusate sodium 100 mg Capsule PO ×2 (09:40→18:07)
[2024-11-18 09:55] VITALS: BP 112/69; PULSE 104; RESP 18; TEMP 36.3; O2SAT 98
--- NOTE | 2024-11-18 18:03 | P.DS_ITS ---
Discharge Providers SALES AGENT PROTECTIVE SERVICE Date of Admission: 11/17/24 11:42 Date of Discharge: 11/18/24 Attending Provider at Admission: Ioana Manuel DO Attending Provider at Discharge: Ioana Manuel DO Primary Care Provider: YULISA Muniz Diagnoses at Discharge Discharge Diagnosis (1) Spontaneous vaginal delivery: Status: Acute (2) delivery: Status: Acute (3) Anemia: Status: Acute Reason for Visit Reason for Visit: Contractions Hospital Course Hospital Course Pre-Delivery Course: Admitted on 11/17/24 in spontaneous labor. Initial SVE . SROM at some point BAKERY DECORATOR patient reports around 10:30am. heart tones Category I. She was started on ampicillin due to GBS unknown. She quickly progressed to complete. Delivery: Patient progressed to complete. On entering the room noted patient was spontaneously pushing. Patient placed in lithotomy position. Patient pushed with adequate effort. Head delivered in EYAL position, no nuchal cord was present. Shoulders and rest of body delivered without difficulty with no anesthesia. Mouth and nares bulb suctioned. Cord clamped and cut after 1 minute delay. Infant placed on maternal abdomen. Placenta spontaneously delivered. Pitocin started. Fundus was noted to be firm with massage. The vagina and cervix were inspected and bilateral periurethral abrasions noted to be hemostatic and not requiring repair were noted. Urine sample with straight cath and vaginal swab collected. Fundus was again noted to be firm. Male born at 1309 with 8/9 weighing 6 pounds 2 ounces and measuring 18.25 in length Placenta noted to be intact with centrally inserted umbilical cord with 3 vessels and noted to be intact. Complications: Maternal none none course: Patient underwent on 11/17/24. course was complicated by anemia- started on iron supplementation. Noted to have positive UDS for amphetamines and positive for trichomonas. She is started on metronidazole for trichomonas treatment and will be discharged to complete a 7 day course. Following delivery patient ambulated well, tolerated a normal diet without nausea or vomiting. Pain was well controlled on PO medications, bottle feeding, no leg/calf pain, no calf/leg swelling, normal urination, passing gas and normal bowel movements. Vaginal bleeding thin lochia and decreasing. labs significant for hemoglobin of 7.6 down from 10.3- she will be discharged on iron supplementation. control was discussed and patient declines depo-provera- she is undecided on contraceptive method. Follow- up planned for 1 week outpatient. Warning signs for endometritis, pre-eclampsia, DVT/PE, mastitis were reviewed, discussed additional warning signs including increased vaginal bleeding, worsening abdominal pain. Pelvic rest and activity precautions reviewed as well. She is discharged on in stable condition. Information Peripartum Data: Delivery Method: Vaginal Physical Exam Const: COMMON NORMALS: no acute distress and alert Neck/C-Spine: COMMON NORMALS: no JVD Resp: COMMON NORMALS: normal respiratory effort and clear to auscultation bilaterally AUSCULTATION: clear to auscultation bilaterally Cardio: COMMON NORMALS: no JVD, regular rate, regular rhythm, S1 normal heart sound present, S2 normal heart sound present and No murmurs present (Cardio) RATE: regular rate RHYTHM: regular rhythm HEART SOUNDS: S1 normal heart sound present and S2 normal heart sound present : OTHER: Uterine fundus firm and below the umbilicus Extremity: OTHER: No LE edema Neuro: SENSORIUM/ORIENTATION: Yes alert History History History 12 Term 4 2 Miscarriages/Ectopic 6 Living Children 6 Discharge Data Studies Completed and Pending Laboratory Results WBC 13.80 10^3/uL (3.29-11.43) H 11/18/24 01:25 Corrected WBC Cancelled 11/17/24 11:54 RBC 2.75 10^6/uL (3.85-5.65) L 11/18/24 01:25 Hgb 7.60 g/dL (11.27-16.99) L 11/18/24 01:25 Hct 24.2 % (36-47) L 11/18/24 01:25 MCV 88.0 fl (85-98) 11/18/24 01:25 MCH 27.6 pg (27-33) 11/18/24 01:25 MCHC 31.4 g/dL (30-55) 11/18/24 01:25 RDW 16.1 % (12.1-15.1) H 11/18/24 01:25 Plt Count 247 10^3/cmm (157-399) 11/18/24 01:25 MPV 11.6 fL (7.4-10.4) H 11/18/24 01:25 Gran % Cancelled 11/17/24 11:54 Neut % (Auto) 85.5 % 11/17/24 12:37 Lymph % (Auto) 8.3 % 11/17/24 12:37 [place] % (Auto) 4.8 % 11/17/24 12:37 Eos % (Auto) 0.8 % 11/17/24 12:37 Baso % (Auto) 0.3 % 11/17/24 12:37 Neut # (Auto) 12.40 10^3/uL (1.8-7.7) H 11/17/24 12:37 Lymph # (Auto) 1.2 10^3/uL (0.8-4.8) 11/17/24 12:37 [place] # (Auto) 0.7 10^3/uL (0.2-0.9) 11/17/24 12:37 Eos # (Auto) 0.1 10^3/uL (0.0-0.8) 11/17/24 12:37 Baso # (Auto) 0.1 10^3/uL (0.0-0.1) 11/17/24 12:37 Absolute Gran (auto) Cancelled 11/17/24 11:54 Nucleated RBC % (auto) 0 % 11/17/24 12:37 Nucleated RBCs # 0.0 /100WBC 11/17/24 12:37 Urine Opiates Screen Negative ng/mL (Negative) 11/17/24 13:33 Ur Barbiturates Screen Negative ng/mL (Negative) 11/17/24 13:33 Ur Phencyclidine Scrn Negative ng/mL (Negative) 11/17/24 13:33 Ur Amphetamines Screen Positive ng/mL (Negative) H 11/17/24 13:33 U Benzodiazepines Scrn Negative ng/mL (Negative) 11/17/24 13:33 Urine Cocaine Screen Negative ng/mL (Negative) 11/17/24 13:33 U Marijuana (THC) Screen Positive ng/mL (Negative) H 11/17/24 13:33 C. trachomatis (PCR) Not detected 11/17/24 13:35 N. gonorrhoeae (PCR) Not detected 11/17/24 13:35 T. vaginalis (PCR) Detected 11/17/24 13:35 Blood Type A Positive 11/17/24 12:37 Rho(D) Type Rh positive 11/17/24 12:37 Antibody Screen Negative 11/17/24 12:37 Vitals Last Vital Signs Temp 97.4 F L 11/18/24 09:55 Pulse 104 H 11/18/24 09:55 Resp 18 11/18/24 09:55 BP 112/69 11/18/24 09:55 Pulse Ox 98 11/18/24 09:55 O2 Del Method Room Air 11/18/24 09:55 Results Labs OB ([facility]): Obstetrics US 08/04/24 Blood Type A Positive 11/17/24 Antibody Screen Negative 11/17/24 Hct 24.2 % (36-47) L 11/18/24 Hgb 7.60 g/dL (11.27-16.99) L 11/18/24 Rho(D) Type Rh positive 11/17/24 Plt Count 247 10^3/cmm (157-399) 11/18/24 TSH 1.04 uIU/mL (0.27-4.20) 02/15/23 Hemoglobin A1c 5.4 % (4.0-6.0) 10/04/23 Ser , Semi-Qnt 32798.00 mIU/mL 08/04/24 Urine Opiates Screen Negative ng/mL (Negative) 11/17/24 Ur Barbiturates Screen Negative ng/mL (Negative) 11/17/24 Ur Phencyclidine Scrn Negative ng/mL (Negative) 11/17/24 Ur Amphetamines Screen Positive ng/mL (Negative) H 11/17/24 U Benzodiazepines Scrn Negative ng/mL (Negative) 11/17/24 Urine Cocaine Screen Negative ng/mL (Negative) 11/17/24 U Marijuana (THC) Screen Positive ng/mL (Negative) H Micro Urine Specimen 08/04/24 Discharge Plan Discharge Patient Disposition: Home Condition: Stable Prescriptions: New ibuprofen 800 mg Tablet 800 mg PO TID Qty: 90 0RF metronidazole 500 mg Tablet 500 mg PO BID Qty: 12 0RF docusate sodium 100 mg Capsule 100 mg PO BID Qty: 60 0RF ferrous sulfate 325 mg (65 mg iron) Tablet,Delayed Release (Dr/Ec) 325 mg PO DAILY Qty: 90 0RF Vitamin 27 mg iron- 800 mcg Tablet 1 tab PO DAILY Qty: 90 0RF Discontinued ondansetron 8 mg tablet,disintegrating 8 mg PO Q6H Qty: 14 0RF Rx Instructions: Take 1/2-1 tab every 6 hours as needed for nausea and vomiting Discharge Orders: Discharge Order (Routine); Ordered 11/18/24 Ordered By: Ioana Manuel Referrals: Ioana Manuel DO [Physician] - 11/25/24 2:45 pm (6 week postop appointment scheduled for December 30 @ 3:00 p.m.) Discharge Diet: Regular Discharge Activity: Increase activity as tolerated Patient Instructions: Iron Supplements (By mouth), Ibuprofen (By mouth), Vitamins (By mouth), Metronidazole (By mouth), Laxative, Stool Softeners (By mouth), Depression (DC), Opioid Safety (DC), Preeclampsia and Eclampsia After Delivery (GEN), Hemorrhage (DC), OB Discharge Report, OB Food/Drug Interaction Guide, OB Care at Home, Opioid Safety, OB Vaginal Deliveries, Abnormal Bleeding Activity Restrictions/Additional Instructions: Pelvic rest for 6 weeks. Discharge Attestations SALES AGENT PROTECTIVE SERVICE Time Spent in Discharge Care*: greater than 30 min Coding Level of Care Code Acute Code for Chg Fwd Diagnoses Spontaneous vaginal delivery O80 delivery O60.10X0 Anemia D64.9
[2024-11-18 22:20] VITALS: BP 128/88; PULSE 88; RESP 16; TEMP 36.6; O2SAT 98
== END 2024-11-18 22:20 | disposition home or self-care (01) | DRG 806 ==
LOC: OPOB 11:42 → OBGYN 11:42
PROVIDERS: Admitting Provider Family Medicine; PCP Nurse Practitioner Family; Visit Provider Family Medicine
DX: O60.14X0 Preterm labor third trimester with preterm delivery third trimester, not applicable or unspecified (principal); F15.20 Other stimulant dependence, uncomplicated; Z37.0 Single live birth; O99.324 Drug use complicating childbirth; O98.32 Other infections with a predominantly sexual mode of transmission complicating childbirth; Z3A.36 36 weeks gestation of pregnancy; A59.9 Trichomoniasis, unspecified; O90.81 Anemia of the puerperium
CPT/HCPCS: 36415; 59025; 59409; 80306; 85025; 85027; 86850; 86900; 87491; 87591; 87661; 99211; J0290

== ENCOUNTER → 2025-02-18 10:45 | Outpatient (BNVA) | payer BC, SELFPAY | PROVIDERS: PCP Nurse Practitioner Family; Visit Provider Nurse Practitioner | DX: Z11.3 Encounter for screening for infections with a predominantly sexual mode of transmission (principal) | CPT/HCPCS: 87661 ==

== ENCOUNTER 2025-07-07 12:07 | Observation (INO) | payer BC, MEDICAID, SELFPAY ==
[2025-07-07] VITALS (22 sets, daily range): BP systolic 85–119; BP diastolic 52–71; PULSE 77–119; RESP 12–26; TEMP 36.2–37.2; O2SAT 95–100; BMI 24.7
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
--- NOTE | 2025-07-07 12:19 | US_ITS ---
WS: [id number] ULTRASOUND PELVIS TECHNIQUE: Transabdominal. CLINICAL INFORMATION: hemorrhage. no menstration for 4 months LMP:? FINDINGS: Transabdominal only Large amount of fluid with blood products and hematoma in the endometrial canal. Suggestion of an irregular gestational sac with decidual reaction in the area of the cervix. No pole or yolk sac visualized. Findings suspicious for spontaneous incomplete . Suspected subchorionic hematoma/hemorrhage. Hypervascular uterus. Additional considerations such as molar or retained products of conception less likely Ovaries are normal in appearance. Uterus Orientation: Anteverted. Size: 5.4 cm x 5.2 cm x 11.0 cm Right ovary size: 2.0 cm x 2.2 cm x 1.6 cm. Right ovary volume: 3.7 ccm3 Left ovary size: 2.0 cm x 1.1 cm x 1.8 cm. Left ovary volume: 2.0 ccm3 Free fluid: Fluid and blood products in the cul-de-sac. US/US pelvic complete* [id number] IMPRESSION: 1. Findings suspicious for spontaneous incomplete described above 2. Bilateral ovaries appear normal
--- NOTE | 2025-07-07 12:24 | PC.NURSE ---
PATIENT EMERGENT BLOOD TRANSFUSION, 2 UNITS, STARTED AT 1224. PATIENT VERBALIZED CONSENT. AYSE GRAJEDA RN SECONDARY WITNESS.
[2025-07-07 12:27] LABS: Hematocrit 31.0 % (36-47); Hemoglobin 9.40 g/dL (11.27-16.99); Mean Corpuscular HGB Conc 30.3 g/dL (30-55); Mean Corpuscular Hemoglobin 26.6 pg (27-33); Mean Corpuscular Volume 87.8 fl (85-98); Nucleated Red Blood Cells % 0 %; Platelet Count 467 10^3/cmm (157-399); Red Blood Count 3.53 10^6/uL (3.85-5.65); White Blood Count 10.20 10^3/uL (3.29-11.43)
--- NOTE | 2025-07-07 12:27 | PC.NURSE ---
BLOOD STARTED ON RAPID INFUSER.
[2025-07-07 12:52] LABS: Lactic Sepsis W/Reflex 2.2 mmol/L (0.5-2.2)
[2025-07-07 13:06] LABS: Alanine Aminotransferase 7 U/L (0-33); Albumin Level 3.3 g/dL (3.5-5.2); Alkaline Phosphatase 73 U/L (35-105); Anion Gap 18.4 (5-19); Aspartate Amino Transferase 8 U/L (0-32); Blood Urea Nitrogen 8 mg/dL (6-20); Calcium 8.5 mg/dL (8.5-10.5); Carbon Dioxide 19 mmol/L (22-29); Chloride 104 mmol/L (98-107); Creatinine Clr Calc Pharmacy 148.9713; Globulin 2.4 g/dL (1.3-4.6); Glucose 130 mg/dL (65-115); Osmolality Calculated 284 mOsm/kg (285-295); Potassium 4.4 mmol/L (3.5-5.1); Sodium 137 mmol/L (136-145); Total Protein 5.7 g/dL (6.6-8.7)
--- NOTE | 2025-07-07 13:18 | PC.NURSE ---
OF 1317, PATIENT HAS ESTIMATED BLOOD LOSS OF 1000 ML.
[2025-07-07 13:32] LABS: INR 0.99 (0.8-1.2); Prothrombin Time 13.80 SECONDS (12.1-14.9)
[2025-07-07 13:33] LABS: Partial Thromboplastin Time 21.4 SECONDS (23.9-36.7)
[2025-07-07] MEDS: tranexamic acid 1,000 MG/100 ML PREMIX 600 MG IV (13:39)
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
--- NOTE | 2025-07-07 14:01 | P.ANESASSM_ITS ---
Pre-Anesthetic Assessment Height/Weight: Height 5 ft 3 in Weight 140 lb Temp Pulse Resp BP Pulse Ox O2 Del Method 98.3 F 83 26 H 109/68 100 Room Air 07/07/25 12:11 07/07/25 12:11 07/07/25 12:11 07/07/25 12:35 07/07/25 12:11 07/07/25 12:11 Preop Diagnosis: Hemorrhage Operation Date: 07/07/25 14:30 Proposed Procedures p Dilation And Curettage (D&C) Dilatation and Curettage with Suction(Not Applicable) - Jesica Gaines MD Was Beta Tim taken within 24 hours: N/A Was Clonidine taken within 24 hours: N/A Social Alcohol and Tobacco Methamphetamine and marijuana Exam alert, oriented x 3 and regular rate & rhythm Airway Submandibular: within normal limits Cervical ROM: within normal limits Mallampati: Class II Comments: Comments: Edentulous Anesthetic Plan ASA status: 3E Anesthesia: General Other: Patient presented to the ER today after experiencing vaginal bleeding for the last day. Patient lost approximately 1200 cc in the ER Patient states that she has not had a period in 4 months Denies any cardiac issues Smokes nicotine and marijuana Uses alcohol weekly Admits to methamphetamine abuse. Patient states that she has not used for 2 days 2 units PRBCs given in the ED and patient's BP currently in the 120s systolic 2 peripheral IVs currently Plan for GETA with RSI. 2 units PRBCs ordered to have in the OR if needed Medications/Allergies Home Medications ?Medication ?Instructions ?Recorded ?Confirmed ?Last Taken ?Type albuterol sulfate 90 mcg/actuation 2 puff inhalation Q 6H PRN 02/17/25 02/17/25 Unknown Rx aerosol inhaler (Ventolin HFA) shortness of breath or wheezing #8.5 grams cyclobenzaprine 10 mg tablet 10 mg PO TID PRN muscle s pasm #90 02/17/25 02/17/25 Unknown Rx tabs escitalopram oxalate 10 mg tablet 10 mg PO DAILY #30 t abs 02/17/25 02/17/25 Unknown Rx (Lexapro) norelgestromin 150 mcg-e.estradiol 1 patch transdermal Q7D #3 ea 02/17/25 02/17/25 Unknown Rx 35 mcg/24 hr weekly transderm patch (Xulane) prednisone 10 mg tablet See Rx Instructions PO DAILY #12 02/17/25 02/17/25 Unknown Rx tabs budesonide-formoterol HFA 160 2 puff inhalation Q12H # 10.2 grams 02/18/25 02/18/25 Unknown Rx mcg-4.5 mcg/actuation aerosol inhaler (Symbicort) Allergies Allergy/AdvReac Type Severity Reaction Status Date / Time pineapple Allergy Mild tingling Verified 02/17/25 15:09 of tongue/light swelling latex Allergy ALGY-Hives Verified 02/17/25 15:09 [facility] Anesthesia Medical History (Updated 07/07/25 @ 13:59 by Jesica Gaines MD) labor Active labor Methamphetamine dependence Late care Overdose of antipsychotic On combination antipsychotic drug therapy Stimulant use disorder Nicotine dependence, cigarettes, uncomplicated VIRY (generalized anxiety disorder) Major depressive disorder, recurrent, moderate Chronic post-traumatic stress disorder (PTSD) History of atrial septal defect ADHD Depression Anxiety History of reactive attachment disorder PTSD (post-traumatic stress disorder) Peptic ulcer disease Seizure disorder Surgical History History of cholecystectomy Family History Father Diabetes Heart disease Daughter Heart murmur Other Adopted Social History Smoking and tobacco/nicotine status: current every day tobacco/nicotine user Second hand smoke exposure: Yes Substance/Drug Use: former Additional social history: Drug use: Marijuana daily--> has medical card that is scanned into chart Adopted: Yes Caregiver/support person: No Lives independently: Yes Housing: House Marital status: Legally Number of children: 4 service: No Pets and animals: Yes Do you think of yourself as: Straight/Heterosexual Female Reproductive History Para: 6 Spontaneous abortions: Yes (6) Data Anesthesia 07/07/25 12:17 07/07/25 12:17 Short CBC 07/07/25 Range/Units 12:17 WBC 10.20 (3.29-11.43) 10^3/uL Hgb 9.40 L (11.27-16.99) g/dL Hct 31.0 L (36-47) % MCV 87.8 (85-98) fl Plt Count 467 H (157-399) 10^3/cmm Neut % (Auto) 53.4 % Neut # (Auto) 5.45 (1.8-7.7) 10^3/uL BMP 07/07/25 12:17 Sodium 137 Potassium 4.4 Chloride 104 Carbon Dioxide 19 L BUN 8 Creatinine 0.5 Glucose 130 H Calcium 8.5 Liver Function 07/07/25 Range/Units 12:17 Total Bilirubin 0.2 (0.15-1.2) mg/dL AST 8 (0-32) U/L ALT 7 (0-33) U/L Alkaline Phosphatase 73 (35-105) U/L Albumin 3.3 L (3.5-5.2) g/dL Blood Bank 07/07/25 12:17 Blood Type A Positive Rho(D) Type Rh positive Coags 07/07/25 12:17 PT 13.80 INR 0.99 APTT 21.4 L
--- OUTSIDE RECORDS SUMMARY | 2025-07-07 14:19 | XMS_ITS | Encounter Summary ---
Author Organization [facility] Address [address] [place] [address] Care Team Providers Care Outbound Sales Advisor Name Role Phone [facility] Primary Care Provider Encounter Details Date Type Department Care Team (Late st Contact Info) Description 10/03/2015 Telephone [facility] Labor and Delivery [address] [place] [address] [facility] [address] [place] [address] Social History Tobacco Use Types Packs/Day Years Used Date Smoking Tobacco: Every Day Cigarettes 1 2 Smokeless Tobacco: Never Alcohol Use Standard Drinks/Week Comments No 0 (1 standard drink = 0.6 oz pure alcohol) Quit when she found out she was Comments Yes Sex and Gender Information Value Date Recorded Sex Assigned at Not on file Legal Sex Female 12:02 PM TECHNICAL SOURCING RECRUITER Gender Identity Not on file Sexual Orientation Not on file documented as of this encounter Miscellaneous Notes * Telephone Encounter - Call, Mini Rivera RN - 10/03/2015 2:17 AM CST Triage Nurse Call 10/03/2015 2:17 AM Preeti DAMON Current Physician: Luis Eduardo Greenberg Estimated Date of Delivery: 10/05/15 Gestational Age: 39w5d Reason for Call: Pt complaining of spine pain. Patient stated it's constant and I can't get get off the couch or out of the bathtub. Patient stated she pulled a ligament a few months back and just wanted to know if she should be seen. Normal movement: yes Contractions Present: no Leaking Present: denies Vaginal Bleeding: no [place]: N/A Last Vaginal Exam: NA Complications with : NA Relevant Medical History: Active Problems: * No active hospital problems. * Patient Active Problem List Diagnosis Code ??? Drug-induced mood disorder F19.94 ??? Polysubstance use disorder, severe F19.20 ??? Tobacco use Z72.0 ??? Scabies B86 Past Medical History Diagnosis Date ??? Reactive attachment disorder ??? PTSD (post-traumatic stress disorder) ??? ADHD (attention deficit hyperactivity disorder) ??? 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 Hypothyroidism ??? Chlamydia first trimester per patient; treated Advice Given: Advised patient to take a warm bath, make a heating pack, and take tylenol if needed for spine pain. Mini Rai RN NICAL SOURCING RECRUITER documented in this encounter Plan of Treatment Not on file documented as of this encounter Visit Diagnoses Not on filedocumented in this encounter Care Teams Outbound Sales Advisor Relationship Specialty Start Date End Date [facility] [address] [place] [address] PCP - General 04/15/15 11/24/16 documented as of this encounter
--- OUTSIDE RECORDS SUMMARY | 2025-07-07 14:19 | XMS_ITS | Encounter Summary ---
Author Organization [facility] Address [address] [place] [address] Care Team Providers Care Animal [facility] Office Supervisor Name Role Phone [facility] Primary Care Provider Encounter Details Date Type Department Care Team (Late st Contact Info) Description 11/14/2015 Nurse Triage Report [id number] ABSTRACTION Jesica Alejandro, RN [address] [place] [phone] Social History Tobacco Use Types Packs/Day Years Used Date Smoking Tobacco: Every Day Cigarettes 0.3 2 Smokeless Tobacco: Never Alcohol Use Standard Drinks/Week Comments Yes 0 (1 standard drink = 0.6 oz pure alcohol) 10/09/15 I drank white wine 3 weeks ago. Boyfriend states, I don't like her drinking the hard stuff, just wine. Comments No Sex and Gender Information Value Date Recorded Sex Assigned at Not on file Legal Sex Female 12:02 PM INVESTIGATION SPECIALIST Gender Identity Not on file Sexual Orientation Not on file documented as of this encounter Progress Notes * Flori Alejandro RN - 11/14/2015 8:46 PM CST CHART DOCUMENTATION ONLY Call Type: Triage Call Presenting Problem: I have abdominal pain. <<<<<<<< TRIAGE NOTE >>>>>>>> Triage Note: Generator Repairer Flori Alejandro added this note on Nov 14 2015 8:46PM: Ambulance called-patient david having transporation that can take her to ED. <<<<<<<< TRIAGE/OUTCOME >>>>>>>> Guideline Title: Abdominal or Pelvic Pain Recommended Disposition: See ED Immediately Original Inclination: Seek Care in ER Intended Action: Seek care in ER Physician Contacted: No Unbearable abdominal/pelvic pain ? YES STIGATION SPECIALIST documented in this encounter Plan of Treatment Not on file documented as of this encounter Visit Diagnoses Not on filedocumented in this encounter Care Teams Animal [facility] Office Supervisor Relationship Specialty Start Date End Date [facility] [address] [place] [address] PCP - General 04/15/15 11/24/16 documented as of this encounter
--- OUTSIDE RECORDS SUMMARY | 2025-07-07 14:19 | XMS_ITS | Encounter Summary ---
Author Organization [facility] Address [address] Arreola: Epic Prelude ADT [place] [address] Care Team Providers Care Plastic Manager Name Role Phone [facility] Primary Care Provider Encounter Details Date Type Department Care Team (Latest Contact Info) Description 11/28/1996 Emergency Avelino Jordan, Kevin Zamora, DO [address] [place] [address] Social History Tobacco Use Types Packs/Day Years Used Date Smoking Tobacco: Never Assessed Comments Unknown Sex and Gender Information Value Date Recorded Sex Assigned at Not on file Legal Sex Female 12:02 PM DIRECTOR OF EXHIBITS Gender Identity Not on file Sexual Orientation Not on file documented as of this encounter Plan of Treatment Not on file documented as of this encounter Visit Diagnoses Not on filedocumented in this encounter Care Teams Plastic Manager Relationship Specialty Start Date End Date [facility] [address] [place] [address] PCP - General 04/15/15 11/24/16 documented as of this encounter
--- OUTSIDE RECORDS SUMMARY | 2025-07-07 14:19 | XMS_ITS | Encounter Summary ---
Author Organization [facility] Address [address] Arreola: Epic Prelude ADT [place] [address] Care Team Providers Care Baler Operator Name Role Phone [facility] Primary Care Provider Encounter Details Date Type Department Care Team (Late st Contact Info) Description 1995 Inpatient Historical Alex Sahni DO NO ADDRESS ON FILE Social History Tobacco Use Types Packs/Day Years Used Date Smoking Tobacco: Never Assessed Comments Unknown Sex and Gender Information Value Date Recorded Sex Assigned at Not on file Legal Sex Female 12:02 PM LINE FIXER Gender Identity Not on file Sexual Orientation Not on file documented as of this encounter Plan of Treatment Not on file documented as of this encounter Visit Diagnoses Not on filedocumented in this encounter Care Teams Baler Operator Relationship Specialty Start Date End Date [facility] [address] [place] [address] PCP - General 04/15/15 11/24/16 documented as of this encounter
--- OUTSIDE RECORDS SUMMARY | 2025-07-07 14:19 | XMS_ITS | Encounter Summary ---
Author Organization [facility] Address [address] [place] [place] [address] Care Team Providers Care Box Toe Buffer Name Role Phone [facility] Primary Care Provider Encounter Details Date Type Department Care Team (Latest Contact Info) Description 10/26/1999 Inpatient Historical Historical [place] [facility] Sai Douglas W, DO [address] [place] [phone] Laboratory examination (Primary Dx) Social History Tobacco Use Types Packs/Day Years Used Date Smoking Tobacco: Never Assessed Comments Unknown Sex and Gender Information Value Date Recorded Sex Assigned at Not on file Legal Sex Female 12:02 PM COMMERCIAL LOAN UNDERWRITER Gender Identity Not on file Sexual Orientation Not on file documented as of this encounter Plan of Treatment Not on file documented as of this encounter Visit Diagnoses Diagnosis Laboratory examination- Primary documented in this encounter Care Teams Box Toe Buffer Relationship Specialty Start Date End Date [facility] [address] [place] [address] PCP - General 04/15/15 11/24/16 documented as of this encounter
--- OUTSIDE RECORDS SUMMARY | 2025-07-07 14:19 | XMS_ITS | Encounter Summary ---
Author Organization [facility] Address [address] Arreola: Epic Prelude ADT [place] [address] Care Team Providers Care Cut Tobacco Bulker Name Role Phone [facility] Primary Care Provider Encounter Details Date Type Department Care Team (Latest Contact Info) Description 01/14/1997 Emergency Sai Douglas, DO [address] [facility] [address] [place] [address] Social History Tobacco Use Types Packs/Day Years Used Date Smoking Tobacco: Never Assessed Comments Unknown Sex and Gender Information Value Date Recorded Sex Assigned at Not on file Legal Sex Female 12:02 PM UNEMPLOYMENT INSURANCE DIRECTOR Gender Identity Not on file Sexual Orientation Not on file documented as of this encounter Plan of Treatment Not on file documented as of this encounter Visit Diagnoses Not on filedocumented in this encounter Care Teams Cut Tobacco Bulker Relationship Specialty Start Date End Date [facility] [address] [place] [address] PCP - General 04/15/15 11/24/16 documented as of this encounter
--- OUTSIDE RECORDS SUMMARY | 2025-07-07 14:19 | XMS_ITS | Encounter Summary ---
Author Organization [facility] Address [address] [place] [address] Care Team Providers Care Basket Mender Name Role Phone [facility] Primary Care Provider Encounter Details Date Type Department Care Team (Late st Contact Info) Description 03/11/1998 Emergency [facility] Emergency Services [address] [place] [phone] Elian Mock DO NO ADDRESS ON FILE Octaviano Baugh MD NO ADDRESS ON FILE Acute bronchiolitis due to other infectious organisms (Primary Dx) Social History Tobacco Use Types Packs/Day Years Used Date Smoking Tobacco: Never Assessed Comments Unknown Sex and Gender Information Value Date Recorded Sex Assigned at Not on file Legal Sex Female 12:02 PM FINANCIAL DATA ANALYST Gender Identity Not on file Sexual Orientation Not on file documented as of this encounter Plan of Treatment Not on file documented as of this encounter Visit Diagnoses Diagnosis Acute bronchiolitis due to other infectious organisms- Primary documented in this encounter Care Teams Basket Mender Relationship Specialty Start Date End Date [facility] [address] [place] [address] PCP - General 04/15/15 11/24/16 documented as of this encounter
--- OUTSIDE RECORDS SUMMARY | 2025-07-07 14:19 | XMS_ITS | Encounter Summary ---
Author Organization [facility] Address [address] [facility] [address] Care Team Providers Care Polyethylene Bag Machine Operator Name Role Phone [facility] Primary Care Provider Encounter Details Date Type Department Care Team (Late st Contact Info) Description 02/11/1999 Emergency [facility] Emergency Services [address] [place] [phone] Veronica Piña MD NO ADDRESS ON FILE Contact dermatitis and other eczema due to plants (except food) (Primary Dx) Social History Tobacco Use Types Packs/Day Years Used Date Smoking Tobacco: Never Assessed Comments Unknown Sex and Gender Information Value Date Recorded Sex Assigned at Not on file Legal Sex Female 12:02 PM FIELD AGENT Gender Identity Not on file Sexual Orientation Not on file documented as of this encounter Plan of Treatment Not on file documented as of this encounter Visit Diagnoses Diagnosis Contact dermatitis and other eczema due to plants (except food)- Primary documented in this encounter Care Teams Polyethylene Bag Machine Operator Relationship Specialty Start Date End Date [facility] [address] [place] [address] PCP - General 04/15/15 11/24/16 documented as of this encounter
--- OUTSIDE RECORDS SUMMARY | 2025-07-07 14:19 | XMS_ITS | Encounter Summary ---
Author Organization [facility] Address [address] [place] [address] Care Team Providers Care Pharmacy Sales Representative Name Role Phone [facility] Primary Care Provider Encounter Details Date Type Department Care Team (Late st Contact Info) Description 11/16/2014 Nurse Triage Report [id number] ABSTRACTION Kaci Valente RN Social History Tobacco Use Types Packs/Day Years Used Date Smoking Tobacco: Every Day Cigarettes Alcohol Use Standard Drinks/Week Comments No 0 (1 standard drink = 0.6 oz pur e alcohol) Comments No Sex and Gender Information Value Date Recorded Sex Assigned at Not on file Legal Sex Female 12:02 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 ASSESSMENT Assessment Triage Questions: Caller has patient permission to share protected health and personal information for purposes of triage Associated Symptoms: H/A, persistant cough, difficulty sleeping, very tired, SOB, sore throat, back pain, interferes with normal activities Onset: 5 days ago it started, worse yesterday Location: respiratory Pain Assessment: 1 - 10 with 10 being the most severe pain 7-8 Treatment so far for current presenting problem: inhaler History (Clinical Problems): polysubstance abuse, drug induced mood disorder History (Oncology/Hematology Diagnosis): n/a Treatment for oncology or hematology diagnosis: n/a Date of last oncology or hematology specific treatment: n/a OB: Are you having contractions 5 minutes apart for 1 hour? n/a OB: Are you leaking any fluid vaginally? n/a OB: Are you having any vaginal bleeding? (Indicate color and amount) n/a OB: Is your baby moving normally? n/a Medications: n/a Medications and start of each - oncology related: n/a Medication reactions: n/a Does this physician utilize [employer] e-prescribing or treatment protocol? n/a Instructed to keep an updated list of their prescriptions and OTC medications and to take their list with them anytime they are seen by a PCP/UCC/ER and or a specialist 1-Yes, patient med-rec teaching done Call source (Pt is currently receiving oncology/hematology services from): 9. Not an oncology/hematology patient TRIAGE NOTE Triage Note: TRIAGE/OUTCOME Guideline Title: Breathing Problems Recommended Disposition: See ED Immediately Original Inclination: Call Provider/See in 24 Override Disposition: Intended Action: Call or See Provider within 24 hrs Physician Contacted: No New or worsening shortness of breath/difficulty breathing AND new onset of fatigue, weakness, confusion, or change in ability to care out daily activities ? YES Physician Instructions: Care Advice: Another adult should drive. IMMEDIATE ACTION Write down provider's name. List or place the following in a bag for transport with the patient: current prescription and/or nonprescription medications alternative treatments, therapies and medications and street drugs. Place person in a position of comfort and loosen tight clothing. An adult should stay with the patient, preferably one trained in CPR. If the person is not trained in CPR, then he or she should provide hands-only (compression-only) CPR as recommended by the [employer]. OR CATEGORY MANAGER documented in this encounter Plan of Treatment Not on file documented as of this encounter Visit Diagnoses Not on filedocumented in this encounter Care Teams Pharmacy Sales Representative Relationship Specialty Start Date End Date [facility] NPI: [id number] [place] [address] PCP - General 04/15/15 11/24/16 documented as of this encounter
--- OUTSIDE RECORDS SUMMARY | 2025-07-07 14:19 | XMS_ITS | Clinical Summary ---
Author Organization [facility] Address [address] [place] [address] Phone Care Team Providers Care Parts Representative Name Role Phone Unavailable Primary Care Provider Unavailabl e Allergies Active Allergy Reactions Criticality Noted Date Comments Latex Other (See Comments) Low 05/29/2015 Skin sensitivity Pineapple Other (See Comments) 04/01/2015 my mouth will get tingly and I will start coughing Venom-Honey Bee Unknown 07/30/2016 Medications albuterol HFA 90 mcg inhaler Take 2 Puffs by inhalation every 6 hours as needed for Shortness of Breath. Active vit no.109-iron-FA 40 mg iron- 1 mg Tablet, Chewable Take 1 Tablet by mouth daily. 30 Tablet 0 6 Active ibuprofen (MOTRIN) 600 mg tablet Take 1 Tablet (600 mg) by mouth every 6 hours as needed for Pain. 30 Tablet 1 6 Active Active Problems Problem Noted Date Diagnosed Date Generalized abdominal pain 04/13/2018 Nausea & vomiting 04/13/2018 Elevated LFTs 04/13/2018 Gall stones 04/13/2018 Vaginal bleeding 04/13/2018 Other constipation 04/13/2018 Insulin controlled gestation al diabetes mellitus (GDM) in third trimester 08/11/2016 Non-compliance with treatment 08/11/2016 Supervision of high risk in third trim jamie 10/09/2015 Scabies 08/08/2015 Tobacco use 07/29/2015 Drug-induced mood disorder 11/07/2014 Polysubstance use disorder, severe 11/07/2014 Choledocholithiasis with acute cholecystitis Acute blood loss anemia Immunizations Immunization Administration Dates Next Due Influenza Seasonal Unspecified Formulation IM Family History Medical History Relation Name Comments Heart Disease Father Seizures Father Cancer Mother Relation Name Status Comments Father Alive Mother Alive Social History Tobacco Use Types Packs/Day Years Used Date Smoking Tobacco: Every Day Cigarettes 0.5 2 Smokeless Tobacco: Never Tobacco Cessation:Ready to Q uit: No; Counseling Given: Yes Alcohol Use Standard Drinks/Week Comments Yes 1 (1 standard drink = 0.6 oz pure alcohol) Drank 1 glass of wine; 3 days ago on 07/27/16 Comments No Sex and Gender Information Value Date Recorded Sex Assigned at Not on file 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 Gender Identity Not on file Sexual Orientation Not on file Last Filed Vital Signs Vital Sign Reading Time Taken Comments Blood Pressure 114/49 04/17/2018 3:45 PM CDT Pulse 88 04/17/2018 3:45 PM CDT Temperature 36.7 C (98.1 F) 04/17/2018 3:45 PM CDT Respiratory Rate 16 04/17/2018 3:45 PM CDT Oxygen Saturation 99% 04/17/2018 3:45 PM CDT Inhaled Oxygen Concentration - - Weight 90.7 kg (200 lb) 04/13/2018 7:54 PM CDT Height 160 cm (5' 3 ) 04/13/2018 7:54 PM CDT Body Mass Index 35.43 04/13/2018 7:54 PM CDT Plan of Treatment Health Maintenance Due Date Last Done Comments DTAP/TDAP/TD VACCINES (1 - Tdap) 2014 HEPATITIS B VACCINES (1 of 3 - 19+ 3-dose series) 07/20 CERVICAL CANCER SCREENING 2016 HPV/Cotest (21-29) 2016 PAP SMEAR 2016 HPV VACCINES (1 - 3-dose SCDM series) 2022 INFLUENZA VACCINE (#1) 2025 06/04/2015 Insurance [address] [place] [address] [facility] [employer] [employer] Advance Directives For more information, please contact: [phone] * Full Code (Latest Code Status on File) Date Activated Date Inactivated Comments 04/13/2018 5:52 PM 04/17/2018 11:13 PM * Full Code Date Activated Date Inactivated Comments 08/11/2016 4:32 PM 08/13/2016 8:04 PM * Full Code Date Activated Date Inactivated Comments 08/11/2016 1:49 PM 08/11/2016 4:32 PM * Full Code Date Activated Date Inactivated Comments 08/11/2016 10:22 AM 08/11/2016 1:49 PM * Full Code Date Activated Date Inactivated Comments 07/30/2016 7:46 PM 07/30/2016 9:03 PM
--- OUTSIDE RECORDS SUMMARY | 2025-07-07 14:19 | XMS_ITS | Encounter Summary ---
Author Organization [facility] Address [address] [place] [address] Care Team Providers Care Child Care Name Role Phone [facility] Primary Care Provider Encounter Details Date Type Department Care Team (Late st Contact Info) Description 10/06/1999 Emergency [facility] Emergency Services [address] [place] [phone] Contreras Alvarez, DO [address] [place] [phone] Ed, Physician NO ADDRESS ON FILE Bronchitis, not specified as acute or chronic (Primary Dx) Social History Tobacco Use Types Packs/Day Years Used Date Smoking Tobacco: Never Assessed Comments Unknown Sex and Gender Information Value Date Recorded Sex Assigned at Not on file Legal Sex Female 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
--- OUTSIDE RECORDS SUMMARY | 2025-07-07 14:19 | XMS_ITS | Encounter Summary ---
Author Organization [facility] Address [address] [place] [address] Care Team Providers Care Health Sanitarian Name Role Phone [facility] Primary Care Provider Encounter Details Date Type Department Care Team (Late st Contact Info) Description 08/19/1999 Emergency [facility] Emergency [facility] [address] [place] [phone] Elian Mock DO NO ADDRESS ON FILE Nausea with vomiting (Primary Dx) Social History Tobacco Use Types Packs/Day Years Used Date Smoking Tobacco: Never Assessed Comments Unknown Sex and Gender Information Value Date Recorded Sex Assigned at Not on file Legal Sex Female 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
--- OUTSIDE RECORDS SUMMARY | 2025-07-07 14:19 | XMS_ITS | Encounter Summary ---
Author Organization [facility] Address [address] [facility] [place] [address] Care Team Providers Care Production Hardener Name Role Phone [facility] Primary Care Provider Encounter Details Date Type Department Care Team (Late st Contact Info) Description 09/03/1999 Emergency Emergency Services [address] [place] [phone] Luana Leal MD [address] [place] [address] Ed, Physician NO ADDRESS ON FILE Acute upper respiratory infections of unspecified site (Primary Dx) Social History Tobacco Use Types Packs/Day Years Used Date Smoking Tobacco: Never Assessed Comments Unknown Sex and Gender Information Value Date Recorded Sex Assigned at Not on file Legal Sex Female 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
--- OUTSIDE RECORDS SUMMARY | 2025-07-07 14:19 | XMS_ITS | Encounter Summary ---
Author Organization [facility] Address [address] Arreola: Epic Prelude ADT [place] [address] Care Team Providers Care Well Service Pump Equipment Operator Name Role Phone [facility] Primary Care Provider Encounter Details Date Type Department Care Team (Latest Contact Info) Description 01/28/1997 Emergency Sai Douglas W, DO [address] [facility] [address] [place] [phone] Solis Viveros MD [address] [place] [address] Social History Tobacco Use Types Packs/Day Years Used Date Smoking Tobacco: Never Assessed Comments Unknown Sex and Gender Information Value Date Recorded Sex Assigned at Not on file Legal Sex Female 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
--- OUTSIDE RECORDS SUMMARY | 2025-07-07 14:19 | XMS_ITS | Encounter Summary ---
Author Organization [facility] Address [address] [facility] [place] [address] Care Team Providers Care Brusher Machine Name Role Phone [facility] Primary Care Provider Encounter Details Date Type Department Care Team (Late st Contact Info) Description 02/16/1999 Emergency [facility] Emergency Services [address] [place] [phone] Luana Leal MD [address] [address] Rash and other nonspecific skin eruption (Primary Dx) Social History Tobacco Use Types Packs/Day Years Used Date Smoking Tobacco: Never Assessed Comments Unknown Sex and Gender Information Value Date Recorded Sex Assigned at Not on file Legal Sex Female 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
--- OUTSIDE RECORDS SUMMARY | 2025-07-07 14:19 | XMS_ITS | Encounter Summary ---
Author Organization [facility] Address [address] [place] [address] Care Team Providers Care Tablet Technician Name Role Phone [facility] Primary Care Provider [phone] Encounter Details Date Type Department Care Team (Latest Contact Info) Description 08/06/1998 Inpatient [facility] [place] [address] [place] [address] Andrei Verduzco, DDS [address] [address] Dental caries (Primary Dx) Social History Tobacco Use Types Packs/Day Years Used Date Smoking Tobacco: Never Assessed Comments Unknown Sex and Gender Information Value Date Recorded Sex Assigned at Not on file Legal Sex Female 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
--- OUTSIDE RECORDS SUMMARY | 2025-07-07 14:19 | XMS_ITS | Encounter Summary ---
Author Organization [facility] Address [address] 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
--- OUTSIDE RECORDS SUMMARY | 2025-07-07 14:19 | XMS_ITS | Encounter Summary ---
Author Organization [facility] Address [address] [place] [address] Care Team Providers Care Stopper Maker Name Role Phone [facility] Primary Care Provider [phone] Encounter Details Date Type Department Care Team (Late st Contact Info) Description 12/01/1999 Emergency [facility] Emergency Services [address] [facility] [address] Elian Mock DO NO ADDRESS ON FILE Ed, Physician NO ADDRESS ON FILE Pneumonia, organism unspecified(486) (Primary Dx) Social History Tobacco Use Types Packs/Day Years Used Date Smoking Tobacco: Never Assessed Comments Unknown Sex and Gender Information Value Date Recorded Sex Assigned at Not on file Legal Sex Female 12: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
--- OUTSIDE RECORDS SUMMARY | 2025-07-07 14:19 | XMS_ITS | Encounter Summary ---
Author Organization [facility] Address [address] 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
[2025-07-07 14:25] LABS: Reflex Lactate Order REFLEX LACTIC ORDERD
--- NOTE | 2025-07-07 14:47 | PM.OP ---
Operative Report Date of procedure: July 07, 2025 Pre-op diagnosis: missed ab Post-op diagnosis: same Procedure done: suction D&C Specimens removed/disposition: POC Pathology: POC Surgeon: Jesica Gaines MD Estimated blood loss: 50 cc Complications: none from procedure Findings: dilated cervix, uterus sounded to 10 cm, moderate POC Brief History: EMS arrival with gross vaginal bleeding and hypotension. + found on labs, US with blood mixed type in uterus, no obviuos parts Procedure: Patient taken to OR with consent properly performed and signed. Anesthesia obtained. Time out done, prepped and draped in dorsal lithotomy position using stirrups. Visible clotted blood in vagina. Cervix grasped with tenaculum and weighted speculum used. Cervix open some POC removed and a size 9 mm curette advanced and more POC obtained. Sharp curettage performed until gritty texture obtained and one more pass with suction with no contents obtained. Instruments removed and pressure applied to tenaculum sites with hemostasis observed. All counts correct and patient awakened and taken to PACU in stable condition.
--- NOTE | 2025-07-07 15:16 | P.HP_ITS ---
Providers/Chief Complaint 2 Admitting Physician: Jesica Gaines MD Primary ADOPTION SPECIALIST: Jesica Gaines MD Primary Care Provider: YULISA Lombardi Chief Complaint: Vag Bleed HPI ADOPTION SPECIALIST History of Present Illness Preeti Moses is a 29 year old female Present Details Para: 6 Review of Systems 2 Narrative: a [id number] [id number] Medications/Allergies Home Medications ?Medication ?Instructions ?Recorded ?Confirmed ?Last Taken ?Type albuterol sulfate 90 mcg/actuation 2 puff inhalation Q 6H PRN 02/17/25 07/07/25 Unknown Rx aerosol inhaler (Ventolin HFA) shortness of breath or wheezing #8.5 grams cyclobenzaprine 10 mg tablet 10 mg PO TID PRN muscle s pasm #90 02/17/25 07/07/25 Unknown Rx tabs escitalopram oxalate 10 mg tablet 10 mg PO DAILY #30 t abs 02/17/25 07/07/25 Unknown Rx (Lexapro) norelgestromin 150 mcg-e.estradiol 1 patch transdermal Q7D #3 ea 02/17/25 07/07/25 Unknown Rx 35 mcg/24 hr weekly transderm patch (Xulane) budesonide-formoterol HFA 160 2 puff inhalation Q12H # 10.2 grams 02/18/25 07/07/25 Unknown Rx mcg-4.5 mcg/actuation aerosol inhaler (Symbicort) Allergies Allergy/AdvReac Type Severity Reaction Status Date / Time pineapple Allergy Mild tingling Verified 02/17/25 15:09 of tongue/light swelling latex Allergy ALGY-Hives Verified 02/17/25 15:09 [facility] ADOPTION SPECIALIST 2 [facility]: Medical History (Updated 07/07/25 @ 13:59 by Jesica Gaines MD) labor Active labor Methamphetamine dependence Late care Overdose of antipsychotic On combination antipsychotic drug therapy Stimulant use disorder Nicotine dependence, cigarettes, uncomplicated VIRY (generalized anxiety disorder) Major depressive disorder, recurrent, moderate Chronic post-traumatic stress disorder (PTSD) History of atrial septal defect ADHD Depression Anxiety History of reactive attachment disorder PTSD (post-traumatic stress disorder) Peptic ulcer disease Seizure disorder Surgical History History of cholecystectomy Family History Father Diabetes Heart disease Daughter Heart murmur Other Adopted Social History Smoking and tobacco/nicotine status: current every day tobacco/nicotine user Second hand smoke exposure: Yes Substance/Drug Use: former Additional social history: Drug use: Marijuana daily--> has medical card that is scanned into chart Adopted: Yes Caregiver/support person: No Lives independently: Yes Housing: House Marital status: Legally Number of children: 4 service: No Pets and animals: Yes Do you think of yourself as: Straight/Heterosexual Other Female Reproductive History: Hx Age of Menarche: 13 History History History 2 12 Term 4 2 Miscarriages/Ectopic 6 Living Children 6 Vitals/I&O/Wt Last Vital Signs Temp 98.3 F 07/07/25 12:11 Pulse 90 07/07/25 14:16 Resp 16 07/07/25 14:16 BP 85/58 07/07/25 14:16 Pulse Ox 100 07/07/25 14:16 O2 Del Method Room Air 07/07/25 12:11 07/07/25 07/07/25 07/07/25 06:59 14:59 22:59 Intake Total 350 / 350 Output Total 350 / 350 Balance 0 / 0 Weight last 48 hrs Weight 140 lb Data 07/07/25 12:17 07/07/25 12:17 Results Labs OB ([facility]): 2 Obstetrics 08/04/24 Blood Type A Positive Today Antibody Screen Negative Today Hct, (36-47) 31.0 % L Today Hgb, (11.27-16.99) 9.40 g/dL L Today Rho(D) Type Rh positive Today Plt Count, (157-399) 467 10^3/cmm H Today Hemoglobin A1c, (4.0-6.0) 5.4 % 10/04/23 Ser , Semi-Qnt 05823.00 mIU/mL Today Urine Opiates Screen, (Negative) Negative ng/mL 5 Ur Barbiturates Screen, (Negative) Negative ng/mL 11/17 Ur Phencyclidine Scrn, (Negative) Negative ng/mL Ur Amphetamines Screen, (Negative) Positive ng/mL H 11/17 U Benzodiazepines Scrn, (Negative) Negative ng/mL 11/17 Urine Cocaine Screen, (Negative) Negative ng/mL 5 U Marijuana (THC) Screen, (Negative) Positive ng/mL H 12/09 Micro Urine Specimen 08/04/24 A&P PDMP PDMP Reviewed: Not Reviewed Coding Level of Care Code Acute Code for Chg Fwyahir
--- NOTE | 2025-07-07 15:29 | ANE.PACU2 ---
Inpatient post-anesthesia follow up: Airway intact: Yes Vital signs: Temperature 98.4 F Pulse Rate 92 Respiratory Rate 16 Blood Pressure 115/70 Pulse Oximetry 99 Oxygen Delivery Me thod Room Air Oxygen Flow Rate Fraction of Inspir ed Oxygen Hydration adequate: Yes Nausea and vomiting: No Pain level: 1 Mental status: Baseline
--- NOTE | 2025-07-07 15:43 | PM.OBGYCN ---
Providers/Reason for Consult Attending Physician: Jesica Gaines MD Primary Care Provider: YULISA Lombardi CURB SETTER HELPER Consult HPI History of Present Illness Preeti Moses is a 29 year old female Present Details Para: 6 Medications/Allergies Home Medications ?Medication ?Instructions ?Recorded ?Confirmed ?Last Taken ?Type albuterol sulfate 90 mcg/actuation 2 puff inhalation Q6H PRN 02/17/25 07/07/25 Unknown Rx aerosol inhaler (Ventolin HFA) shortness of breath or wheezing #8.5 grams cyclobenzaprine 10 mg tablet 10 mg PO TID PRN muscle spasm #90 02/17/25 07/07/25 Unknown Rx tabs escitalopram oxalate 10 mg tablet 10 mg PO DAILY #30 tabs 02/17/25 07/07/25 Unknown Rx (Lexapro) norelgestromin 150 mcg-e.estradiol 1 patch transdermal Q7D #3 ea 02/17/25 07/07/25 Unknown Rx 35 mcg/24 hr weekly transderm patch (Xulane) budesonide-formoterol HFA 160 2 puff inhalation Q12H #10.2 grams 02/18/25 07/07/25 Unknown Rx mcg-4.5 mcg/actuation aerosol inhaler (Symbicort) Allergies Allergy/AdvReac Type Severity Reaction Status Date / Time pineapple Allergy Mild tingling Verified 02/17/25 15:09 of tongue/light swelling latex Allergy ALGY-Hives Verified 02/17/25 15:09 PFSH CURB SETTER HELPER PFSH: Medical History (Updated 07/07/25 @ 13:59 by Jesica Gaines MD) labor Active labor Methamphetamine dependence Late care Overdose of antipsychotic On combination antipsychotic drug therapy Stimulant use disorder Nicotine dependence, cigarettes, uncomplicated VIRY (generalized anxiety disorder) Major depressive disorder, recurrent, moderate Chronic post-traumatic stress disorder (PTSD) History of atrial septal defect ADHD Depression Anxiety History of reactive attachment disorder PTSD (post-traumatic stress disorder) Peptic ulcer disease Seizure disorder Surgical History History of cholecystectomy Family History Father Diabetes Heart disease Daughter Heart murmur Other Adopted Social History Smoking and tobacco/nicotine status: current every day tobacco/nicotine user Second hand smoke exposure: Yes Substance/Drug Use: former Additional social history: Drug use: Marijuana daily--> has medical card that is scanned into chart Adopted: Yes Caregiver/support person: No Lives independently: Yes Housing: House Marital status: Legally Number of children: 4 service: No Pets and animals: Yes Do you think of yourself as: Straight/Heterosexual Other Female Reproductive History: Hx Age of Menarche: 13 Vitals/I&O/Wt Last Vital Signs Temp 97.1 F L 07/07/25 15:24 Pulse 78 07/07/25 15:24 Resp 16 07/07/25 15:24 BP 105/69 07/07/25 15:24 Pulse Ox 99 07/07/25 15:24 O2 Del Method Room Air 07/07/25 15:24 07/07/25 07/07/25 07/07/25 06:59 14:59 22:59 Intake Total 350 / 350 300 / 650 Output Total 350 / 350 Balance 0 / 0 300 / 300 Weight last 48 hrs Weight 140 lb Data 07/07/25 12:17 07/07/25 12:17 A&P PDMP PDMP Reviewed: Not Reviewed Coding Level of Care Code Acute Code for Chg Justin
[2025-07-07 17:26] LABS: Lactic Acid level (Lactate) 2.5 mmol/L (0.5-2.2)
--- OUTSIDE RECORDS SUMMARY | 2025-07-07 18:18 | XMS_ITS | Encounter Summary ---
Author Organization [facility] Address [address] Arreola: Epic Prelude ADT [place] [address] Care Team Providers Care Network Engineering Advisor Name Role Phone [facility] Primary Care Provider [phone] Encounter Details Date Type Department Care Team (Latest Contact Info) Description 01/28/1997 Emergency Sai Douglas W, DO [address] [facility] [address] [place] [phone] Solis Viveros MD [address] [place] [address] Social History Tobacco Use Types Packs/Day Years Used Date Smoking Tobacco: Never Assessed Comments Unknown Sex and Gender Information Value Date Recorded Sex Assigned at Not on file Legal Sex Female 12:02 PM FINE CRAFT ARTIST Gender Identity Not on file Sexual Orientation Not on file documented as of this encounter Plan of Treatment Not on file documented as of this encounter Visit Diagnoses Not on filedocumented in this encounter Care Teams Network Engineering Advisor Relationship Specialty Start Date End Date [facility] [address] [place] [address] PCP - General 04/15/15 11/24/16 documented as of this encounter
--- OUTSIDE RECORDS SUMMARY | 2025-07-07 18:18 | XMS_ITS | Encounter Summary ---
Author Organization [facility] Address [address] [facility] [place] [address] Care Team Providers Care Clerical Methods Analyst Name Role Phone [facility] Primary Care Provider Encounter Details Date Type Department Care Team (Late st Contact Info) Description 02/16/1999 Emergency [facility] Emergency Services [address] [place] [phone] Luana Leal MD [address] [address] Rash and other nonspecific skin eruption (Primary Dx) Social History Tobacco Use Types Packs/Day Years Used Date Smoking Tobacco: Never Assessed Comments Unknown Sex and Gender Information Value Date Recorded Sex Assigned at Not on file Legal Sex Female 12:02 PM CLASS C DRIVER Gender Identity Not on file Sexual Orientation Not on file documented as of this encounter Plan of Treatment Not on file documented as of this encounter Visit Diagnoses Diagnosis Rash and other nonspecific skin eruption- Primary documented in this encounter Care Teams Clerical Methods Analyst Relationship Specialty Start Date End Date [facility] [address] [place] [address] PCP - General 04/15/15 11/24/16 documented as of this encounter
--- OUTSIDE RECORDS SUMMARY | 2025-07-07 18:18 | XMS_ITS | Encounter Summary ---
Author Organization [facility] Address [address] [place] [address] Care Team Providers Care Principal Automation Engineer Name Role Phone [facility] Primary Care Provider Encounter Details Date Type Department Care Team (Late st Contact Info) Description 10/03/2015 Telephone [facility] [address] [place] [address] [facility] [address] [place] [address] Social History Tobacco Use Types Packs/Day Years Used Date Smoking Tobacco: Every Day Cigarettes 1 2 Smokeless Tobacco: Never Alcohol Use Standard Drinks/Week Comments No 0 (1 standard drink = 0.6 oz pure alcohol) Quit when she found out she was Comments Yes Sex and Gender Information Value Date Recorded Sex Assigned at Not on file Legal Sex Female 12:02 PM MICROSOFT DEVELOPER Gender Identity Not on file Sexual Orientation [...] no Leaking Present: denies Vaginal Bleeding: no [place]: N/A Last Vaginal Exam: NA Complications with [...] needed for spine pain. Mini Rai RN OSOFT DEVELOPER documented in this encounter Plan of Treatment Not on file documented as of this encounter Visit Diagnoses Not on filedocumented in this encounter Care Teams Principal Automation Engineer Relationship Specialty Start Date End Date [facility] [address] [place] [address] PCP - General 04/15/15 11/24/16 documented as of this encounter
--- OUTSIDE RECORDS SUMMARY | 2025-07-07 18:18 | XMS_ITS | Encounter Summary ---
Author Organization [facility] Address [address] Arreola: Epic Prelude ADT [place] [address] Care Team Providers Care Computer Instructor Name Role Phone [facility] Primary [...] on file Legal Sex Female 12:02 PM PRODUCT MARKETING MANAGER Gender Identity Not on file Sexual Orientation Not on file documented as of this encounter Plan of Treatment Not on file documented as of this encounter Visit Diagnoses Not on filedocumented in this encounter Care Teams Computer Instructor Relationship Specialty Start Date End Date [facility] [address] [place] [address] PCP - General 04/15/15 11/24/16 documented as of this encounter
--- OUTSIDE RECORDS SUMMARY | 2025-07-07 18:18 | XMS_ITS | Encounter Summary ---
Author Organization [facility] Address [address] Arreola: Epic Prelude ADT [place] [address] Care Team Providers Care General Road Foreman Name Role Phone [facility] Primary Care Provider Encounter Details Date Type Department Care Team (Latest Contact Info) Description 01/14/1997 Emergency Sai Douglas, DO [address] [facility] [address] [place] [address] Social History Tobacco Use Types Packs/Day Years Used Date Smoking Tobacco: Never Assessed Comments Unknown Sex and Gender Information Value Date Recorded Sex Assigned at Not on file Legal Sex Female 12:02 PM DAY GUARD Gender Identity Not on file Sexual Orientation Not on file documented as of this encounter Plan of Treatment Not on file documented as of this encounter Visit Diagnoses Not on filedocumented in this encounter Care Teams General Road Foreman Relationship Specialty Start Date End Date [facility] [address] [place] [address] PCP - General 04/15/15 11/24/16 documented as of this encounter
--- OUTSIDE RECORDS SUMMARY | 2025-07-07 18:18 | XMS_ITS | Encounter Summary ---
Author Organization [facility] Address [address] [place] [address] Care Team Providers Care Cargo Supervisor Name Role Phone [facility] Primary Care Provider Encounter Details Date Type [...] on file Legal Sex Female 12:02 PM AIRCRAFT BODY REPAIRER Gender Identity Not on file Sexual Orientation [...] Medication reactions: n/a Does this physician utilize [employer] e-prescribing or treatment protocol? n/a Instructed to [...] hands-only (compression-only) CPR as recommended by the [employer] [employer]. RAFT BODY REPAIRER documented in this encounter Plan of Treatment Not on file documented as of this encounter Visit Diagnoses Not on filedocumented in this encounter Care Teams Cargo Supervisor Relationship Specialty Start Date End Date [facility] NPI: [id number] [place] [address] PCP - General 04/15/15 11/24/16 documented as of this encounter
--- OUTSIDE RECORDS SUMMARY | 2025-07-07 18:18 | XMS_ITS | Encounter Summary ---
Author Organization [facility] Address [address] [place] [address] Care Team Providers Care Reed Man Name Role Phone [facility] Primary Care Provider Encounter Details Date Type Department Care Team (Latest Contact Info) Description 10/26/1999 Inpatient Historical Historical [place] [facility] Sai Douglas W, DO [address] [facility] [address] [place] [phone] Laboratory examination (Primary Dx) Social History Tobacco Use Types Packs/Day Years Used Date Smoking Tobacco: Never Assessed Comments Unknown Sex and Gender Information Value Date Recorded Sex Assigned at Not on file Legal Sex Female 12:02 PM HOLLOCK MAKER Gender Identity Not on file Sexual Orientation Not on file documented as of this encounter Plan of Treatment Not on file documented as of this encounter Visit Diagnoses Diagnosis Laboratory examination- Primary documented in this encounter Care Teams Reed Man Relationship Specialty Start Date End Date [facility] [address] [place] [address] PCP - General 04/15/15 11/24/16 documented as of this encounter
--- OUTSIDE RECORDS SUMMARY | 2025-07-07 18:18 | XMS_ITS | Encounter Summary ---
Author Organization [facility] Address [address] [facility] [address] Care Team Providers Care Director Of Digital Technology Name Role Phone [facility] Primary Care Provider Encounter Details Date Type Department Care Team (Late st Contact Info) Description 10/06/1999 Emergency [facility] Emergency Services [address] [place] [phone] Contreras Alvarez, DO [address] [place] [phone] Ed, Physician NO ADDRESS ON FILE Bronchitis, not specified as acute or chronic (Primary Dx) Social History Tobacco Use Types Packs/Day Years Used Date Smoking Tobacco: Never Assessed Comments Unknown Sex and Gender Information Value Date Recorded Sex Assigned at Not on file Legal Sex Female 12:02 PM [employer] Gender Identity Not on file Sexual Orientation Not on file documented as of this encounter Plan of Treatment Not on file documented as of this encounter Visit Diagnoses Diagnosis Bronchitis, not specified as acute or chronic- Primary documented in this encounter Care Teams Director Of Digital Technology Relationship Specialty Start Date End Date [facility] [address] [place] [address] PCP - General 04/15/15 11/24/16 documented as of this encounter
--- OUTSIDE RECORDS SUMMARY | 2025-07-07 18:18 | XMS_ITS | Encounter Summary ---
Author Organization [facility] Address [address] Arreola: [place] [address] Care Team Providers Care Oracle Soa Developer Name Role Phone [facility] Primary Care Provider Encounter Details Date Type Department Care Team (Late st Contact Info) Description 06/30/1996 Inpatient Historical Sai Douglas W, DO [address] [facility] [address] [place] [address] Social History Tobacco Use Types Packs/Day Years Used Date Smoking Tobacco: Never Assessed Comments Unknown Sex and Gender Information Value Date Recorded Sex Assigned at Not on file Legal Sex Female 12:02 PM CELEBRITY CHEF ENTREPRENEUR MEDIA PERSONALITY Gender Identity Not on file Sexual Orientation Not on file documented as of this encounter Plan of Treatment Not on file documented as of this encounter Visit Diagnoses Not on filedocumented in this encounter Care Teams Oracle Soa Developer Relationship Specialty Start Date End Date [facility] [address] [place] [address] PCP - General 04/15/15 11/24/16 documented as of this encounter
--- OUTSIDE RECORDS SUMMARY | 2025-07-07 18:18 | XMS_ITS | Encounter Summary ---
Author Organization [facility] Address [address] [place] [address] Care Team Providers Care Email Production Specialist Name Role Phone [facility] Primary Care Provider Encounter Details Date Type Department Care Team (Latest Contact Info) Description 08/06/1998 Inpatient [facility] [place] [address] [place] [address] Andrei Verduzco, DDS [address] [address] Dental caries (Primary Dx) Social History Tobacco Use Types Packs/Day Years Used Date Smoking Tobacco: Never Assessed Comments Unknown Sex and Gender Information Value Date Recorded Sex Assigned at Not on file Legal Sex Female 12:02 PM ONLINE MARKETER Gender Identity Not on file Sexual Orientation Not on file documented as of this encounter Plan of Treatment Not on file documented as of this encounter Visit Diagnoses Diagnosis Dental caries- Primary documented in this encounter Care Teams Email Production Specialist Relationship Specialty Start Date End Date [facility] [address] [place] [address] PCP - General 04/15/15 11/24/16 documented as of this encounter
--- OUTSIDE RECORDS SUMMARY | 2025-07-07 18:18 | XMS_ITS | Encounter Summary ---
Author Organization [facility] Address [address] [place] [address] Care Team Providers Care Home Health Lpn Name Role Phone [facility] Primary Care Provider Encounter Details Date Type Department Care Team (Late st Contact Info) Description 08/19/1999 Emergency [facility] Emergency Services [address] [place] [phone] Elian Mock DO NO ADDRESS ON FILE Nausea with vomiting (Primary Dx) Social History Tobacco Use Types Packs/Day Years Used Date Smoking Tobacco: Never Assessed Comments Unknown Sex and Gender Information Value Date Recorded Sex Assigned at Not on file Legal Sex Female 12:02 PM ODD PIECE CHECKER Gender Identity Not on file Sexual Orientation Not on file documented as of this encounter Plan of Treatment Not on file documented as of this encounter Visit Diagnoses Diagnosis Nausea with vomiting- Primary documented in this encounter Care Teams Home Health Lpn Relationship Specialty Start Date End Date [facility] [address] [place] [address] PCP - General 04/15/15 11/24/16 documented as of this encounter
--- OUTSIDE RECORDS SUMMARY | 2025-07-07 18:18 | XMS_ITS | Encounter Summary ---
Author Organization [facility] Address [address] Arreola: Epic Prelude ADT [place] [address] Care Team Providers Care Charter Coach Driver Name Role Phone [facility] Primary Care Provider Encounter Details Date Type Department Care Team (Latest Contact Info) Description 11/28/1996 Emergency Avelino Jordan, Kevin Zamora, DO [address] [place] [address] Social History Tobacco Use Types Packs/Day Years Used Date Smoking Tobacco: Never Assessed Comments Unknown Sex and Gender Information Value Date Recorded Sex Assigned at Not on file Legal Sex Female 12:02 PM GUM REMOVER Gender Identity Not on file Sexual Orientation Not on file documented as of this encounter Plan of Treatment Not on file documented as of this encounter Visit Diagnoses Not on filedocumented in this encounter Care Teams Charter Coach Driver Relationship Specialty Start Date End Date [facility] [address] [place] [address] PCP - General 04/15/15 11/24/16 documented as of this encounter
--- OUTSIDE RECORDS SUMMARY | 2025-07-07 18:18 | XMS_ITS | Clinical Summary ---
Author Organization [facility] Address [address] [place] [address] Phone Care Team Providers Care Registrar College [employer] Name Role Phone Unavailable Primary Care Provider [...] on file Legal Sex Female 12:02 PM HEALTH ECONOMIST Gender Identity Not on file Sexual Orientation [...] (#1) 2025 06/04/2015 Insurance [address] [place] [address] [facility] MEDICAID [facility] MEDICAID [facility] MEDICAID Advance Directives For more information, please contact: [phone] * Full Code (Latest Code Status on [...]
--- OUTSIDE RECORDS SUMMARY | 2025-07-07 18:18 | XMS_ITS | Encounter Summary ---
Author Organization [facility] Address [address] [place] [address] Care Team Providers Care Director Of Engineering Name Role Phone [facility] Primary Care Provider Encounter Details Date Type Department Care Team (Late st Contact Info) Description 11/14/2015 Nurse Triage Report [id number] ABSTRACTION Jesica Alejandro, RN [address] [place] [phone] Social History Tobacco Use Types Packs/Day Years [...] on file Legal Sex Female 12:02 PM RISK PROFESSIONAL Gender Identity Not on file Sexual Orientation Not on file documented as of this encounter Progress Notes * Flori Alejandro RN - 11/14/2015 8:46 PM CST CHART DOCUMENTATION ONLY Call Type: Triage Call Presenting Problem: I have abdominal pain. <<<<<<<< TRIAGE NOTE >>>>>>>> Triage Note: Maintenance Person Flori Alejandro added this note on Nov 14 2015 8:46PM: Ambulance called-patient david having transporation that can take her to ED. <<<<<<<< TRIAGE/OUTCOME >>>>>>>> Guideline Title: Abdominal or Pelvic Pain Recommended Disposition: See ED Immediately Original Inclination: Seek Care in ER Intended Action: Seek care in ER Physician Contacted: No Unbearable abdominal/pelvic pain ? YES PROFESSIONAL documented in this encounter Plan of Treatment Not on file documented as of this encounter Visit Diagnoses Not on filedocumented in this encounter Care Teams Director Of Engineering Relationship Specialty Start Date End Date [facility] [address] [place] [address] PCP - General 04/15/15 11/24/16 documented as of this encounter
--- OUTSIDE RECORDS SUMMARY | 2025-07-07 18:18 | XMS_ITS | Encounter Summary ---
Author Organization [facility] Address [address] [place] [address] Care Team Providers Care Icu Manager Name Role Phone [facility] Primary Care Provider Encounter Details Date Type Department Care Team (Late st Contact Info) Description 03/11/1998 Emergency [facility] Emergency Services [address] [place] [phone] Elian Mock DO NO ADDRESS ON FILE Octaviano Baugh MD NO ADDRESS ON FILE Acute bronchiolitis due to other infectious organisms (Primary Dx) Social History Tobacco Use Types Packs/Day Years Used Date Smoking Tobacco: Never Assessed Comments Unknown Sex and Gender Information Value Date Recorded Sex Assigned at Not on file Legal Sex Female 12:02 PM SALESPERSON TRAILERS AND MOTOR HOMES Gender Identity Not on file Sexual Orientation Not on file documented as of this encounter Plan of Treatment Not on file documented as of this encounter Visit Diagnoses Diagnosis Acute bronchiolitis due to other infectious organisms- Primary documented in this encounter Care Teams Icu Manager Relationship Specialty Start Date End Date [facility] [address] [place] [address] PCP - General 04/15/15 11/24/16 documented as of this encounter
--- OUTSIDE RECORDS SUMMARY | 2025-07-07 18:18 | XMS_ITS | Encounter Summary ---
Author Organization [facility] Address [address] [facility] [place] [address] Care Team Providers Care Evaporator Name Role Phone [facility] Primary Care Provider [phone] Encounter Details Date Type Department Care Team (Late st Contact Info) Description 02/11/1999 Emergency [facility] Emergency Services [address] [place] [phone] Veronica Piña MD NO ADDRESS ON FILE Contact dermatitis and other eczema due to plants (except food) (Primary Dx) Social History Tobacco Use Types Packs/Day Years Used Date Smoking Tobacco: Never Assessed Comments Unknown Sex and Gender Information Value Date Recorded Sex Assigned at Not on file Legal Sex Female 12:02 PM TRIMMING PRESS OPERATOR Gender Identity Not on file Sexual Orientation Not on file documented as of this encounter Plan of Treatment Not on file documented as of this encounter Visit Diagnoses Diagnosis Contact dermatitis and other eczema due to plants (except food)- Primary documented in this encounter Care Teams Evaporator Relationship Specialty Start Date End Date [facility] [address] [place] [address] PCP - General 04/15/15 11/24/16 documented as of this encounter
--- OUTSIDE RECORDS SUMMARY | 2025-07-07 18:18 | XMS_ITS | Encounter Summary ---
Author Organization [facility] Address [address] [facility] [place] [address] Care Team Providers Care Senior Accountant Analyst Name Role Phone [facility] Primary Care Provider [phone] Encounter Details Date Type Department Care Team (Late st Contact Info) Description 09/03/1999 Emergency [facility] Emergency Services [address] [place] [phone] Luana Leal MD [address] [place] [address] Ed, Physician NO ADDRESS ON FILE Acute upper respiratory infections of unspecified site (Primary Dx) Social History Tobacco Use Types Packs/Day Years Used Date Smoking Tobacco: Never Assessed Comments Unknown Sex and Gender Information Value Date Recorded Sex Assigned at Not on file Legal Sex Female 12:02 PM MEDICAL SURGERY NURSE Gender Identity Not on file Sexual Orientation Not on file documented as of this encounter Plan of Treatment Not on file documented as of this encounter Visit Diagnoses Diagnosis Acute upper respiratory infections of unspecified site- Primary documented in this encounter Care Teams Senior Accountant Analyst Relationship Specialty Start Date [facility] [address] [place] [address] PCP - General 04/15/15 11/24/16 documented as of this encounter
--- OUTSIDE RECORDS SUMMARY | 2025-07-07 18:18 | XMS_ITS | Encounter Summary ---
Author Organization [facility] Address [address] [place]: Epic Prelude ADT [place] [address] Care Team Providers Care Eyeglass Inspector Name Role Phone [facility] Primary Care Provider [phone] Encounter Details Date Type Department Care Team (Latest Contact Info) Description 1995 Emergency Plaster, Jamil Zamora MD NO ADDRESS ON FILE Social History Tobacco Use Types Packs/Day Years Used Date Smoking Tobacco: Never Assessed Comments Unknown Sex and Gender Information Value Date Recorded Sex Assigned at Not on file Legal Sex Female 12:02 PM CHUTE PULLER Gender Identity Not on file Sexual Orientation Not on file documented as of this encounter Plan of Treatment Not on file documented as of this encounter Visit Diagnoses Not on filedocumented in this encounter Care Teams Eyeglass Inspector Relationship Specialty Start Date End Date [facility] [address] [place] [address] PCP - General 04/15/15 11/24/16 documented as of this encounter
--- OUTSIDE RECORDS SUMMARY | 2025-07-07 18:18 | XMS_ITS | Encounter Summary ---
Author Organization [facility] Address [address] [place] [address] Care Team Providers Care Community Cultural Development Officer Name Role Phone [facility] Primary Care Provider Encounter Details Date Type Department Care Team (Late st Contact Info) Description 12/01/1999 Emergency [facility] Emergency Services [address] [place] [address] Elian Mock DO NO ADDRESS ON FILE Ed, Physician NO ADDRESS ON FILE Pneumonia, organism unspecified(486) (Primary Dx) Social History Tobacco Use Types Packs/Day Years Used Date Smoking Tobacco: Never Assessed Comments Unknown Sex and Gender Information Value Date Recorded Sex Assigned at Not on file 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
[2025-07-08 00:44] VITALS: BP 99/61; PULSE 85; RESP 16; TEMP 36.9; O2SAT 99
[2025-07-08 04:21] VITALS: BP 109/71; PULSE 78; RESP 16; TEMP 36.8; O2SAT 98
[2025-07-08 05:14] LABS: Hematocrit 26.0 % (36-47); Hemoglobin 8.70 g/dL (11.27-16.99); Mean Corpuscular HGB Conc 33.5 g/dL (30-55); Mean Corpuscular Hemoglobin 27.9 pg (27-33); Mean Corpuscular Volume 83.3 fl (85-98); Nucleated Red Blood Cells % 0 %; Platelet Count 348 10^3/cmm (157-399); Red Blood Count 3.12 10^6/uL (3.85-5.65); White Blood Count 11.83 10^3/uL (3.29-11.43)
--- NOTE | 2025-07-08 08:12 | PM.OBGYDC ---
Discharge Providers RADIOACTIVE WASTE DISPOSAL DISPATCHER Date of Admission: 07/07/25 14:13 Date of Discharge: 07/08/25 Attending Provider at Admission: Jesica Gaines MD Attending Provider at Discharge: Jesica Gaines MD Primary Care Provider: YULISA Lombardi Diagnoses at Discharge Discharge Diagnosis 1. Acute blood loss anemia: 2. Hypotension due to hypovolemia: 3. Incomplete miscarriage: Reason for Visit Reason for Visit: Vag Bleed Hospital Course Hospital Course Arrived by EMS with active vaginal bleeding and hypotension. Evaluation revealed abnormal with miscarriage in progress. She was given TXA and 3 units of pRBCs and had suction D&C. Post operatively she recovered to discharge. Physical Exam Const: COMMON NORMALS: no acute distress GENERAL APPEARANCE: cooperative and comfortable Resp: COMMON NORMALS: normal respiratory effort and clear to auscultation bilaterally AUSCULTATION: clear to auscultation bilaterally Cardio: COMMON NORMALS: regular rate RATE: regular rate GI: COMMON NORMALS: Soft to palpation and non-tender PALPATION: Yes Soft to palpation Extremity: COMMON NORMALS: normal to inspection and no pedal edema NARRATIVE EXTREMITY EXAM: No signs dvt History History History 12 Term 4 2 Miscarriages/Ectopic 6 Living Children 6 Discharge Data Studies Completed and Pending Completed Studies During Hospitalization Category Date Time Status US pelvic complete* [id number] Stat Ultrasound 07/07/25 12:19 Completed Pending at discharge Category Date Time Status Leukocyte Reduced RBC Stat Lab 07/07/25 12:17 Results Type and Screen Stat Lab 07/07/25 12:17 Results Pathology: Surgical [PTH] Routine Pth 07/07/25 14:57 Ordered Radiology Impressions Pelvis Ultrasound 07/07/25 12:19 IMPRESSION: 1. Findings suspicious for spontaneous incomplete described above 2. Bilateral ovaries appear normal Laboratory Results WBC 11.83 10^3/uL (3.29-11.43) H 07/08/25 04:27 RBC 3.12 10^6/uL (3.85-5.65) L 07/08/25 04:27 Hgb 8.70 g/dL (11.27-16.99) L 07/08/25 04:27 Hct 26.0 % (36-47) L 07/08/25 04:27 MCV 83.3 fl (85-98) L D 07/08/25 04:27 MCH 27.9 pg (27-33) 07/08/25 04:27 MCHC 33.5 g/dL (30-55) D 07/08/25 04:27 RDW 16.4 % (12.1-15.1) H 07/08/25 04:27 Plt Count 348 10^3/cmm (157-399) 07/08/25 04:27 MPV 9.0 fL (7.4-10.4) 07/08/25 04:27 Neut % (Auto) 76.1 % 07/08/25 04:27 Lymph % (Auto) 19.2 % 07/08/25 04:27 Jay % (Auto) 3.9 % 07/08/25 04:27 Eos % (Auto) 0.3 % 07/08/25 04:27 Baso % (Auto) 0.2 % 07/08/25 04:27 Neut # (Auto) 9.02 10^3/uL (1.8-7.7) H 07/08/25 04:27 Lymph # (Auto) 2.3 10^3/uL (0.8-4.8) 07/08/25 04:27 Jay # (Auto) 0.5 10^3/uL (0.2-0.9) 07/08/25 04:27 Eos # (Auto) 0.0 10^3/uL (0.0-0.8) 07/08/25 04:27 Baso # (Auto) 0.0 10^3/uL (0.0-0.1) 07/08/25 04:27 Nucleated RBC % (auto) 0 % 07/08/25 04:27 Nucleated RBCs # 0.0 /100WBC 07/08/25 04:27 PT 13.80 SECONDS (12.1-14.9) 07/07/25 12:17 INR 0.99 (0.8-1.2) 07/07/25 12:17 APTT 21.4 SECONDS (23.9-36.7) L 07/07/25 12:17 Sodium 137 mmol/L (136-145) 07/07/25 12:17 Potassium 4.4 mmol/L (3.5-5.1) 07/07/25 12:17 Chloride 104 mmol/L (98-107) 07/07/25 12:17 Carbon Dioxide 19 mmol/L (22-29) L 07/07/25 12:17 Anion Gap 18.4 (5-19) 07/07/25 12:17 BUN 8 mg/dL (6-20) 07/07/25 12:17 Creatinine 0.5 mg/dL (0.5-0.9) 07/07/25 12:17 GFR Calculation 145.9 mL/min (90-130) H 07/07/25 12:17 Glucose 130 mg/dL (65-115) H 07/07/25 12:17 Calculated Osmolality 284 mOsm/kg (285-295) L 07/07/25 12:17 Lactic Acid 2.2 mmol/L (0.5-2.2) 07/07/25 12:17 Lactic Acid (Sepsis) 2.5 mmol/L (0.5-2.2) H 07/07/25 16:27 Calcium 8.5 mg/dL (8.5-10.5) 07/07/25 12:17 Total Bilirubin 0.2 mg/dL (0.15-1.2) 07/07/25 12:17 AST 8 U/L (0-32) 07/07/25 12:17 ALT 7 U/L (0-33) 07/07/25 12:17 Alkaline Phosphatase 73 U/L (35-105) 07/07/25 12:17 Total Protein 5.7 g/dL (6.6-8.7) L 07/07/25 12:17 Albumin 3.3 g/dL (3.5-5.2) L 07/07/25 12:17 Globulin 2.4 g/dL (1.3-4.6) 07/07/25 12:17 Ser , Semi-Qnt 84027.00 mIU/mL 07/07/25 12:17 Blood Type A Positive 07/07/25 12:17 Rho(D) Type Rh positive 07/07/25 12:17 Antibody Screen Negative 07/07/25 12:17 Crossmatch See Detail 07/07/25 12:17 Procedures Performed suction D&C Vitals Last Vital Signs Temp 98.2 F 07/08/25 04:21 Pulse 78 07/08/25 04:21 Resp 16 07/08/25 04:21 BP 109/71 10/22/25 04:21 Pulse Ox 98 07/08/25 04:21 O2 Del Method Room Air 07/08/25 04:21 Results Labs OB ([facility]): Obstetrics US 08/04/24 Blood Type A Positive 07/07/25 Antibody Screen Negative 07/07/25 Hct, (36-47) 26.0 % L Today Hgb, (11.27-16.99) 8.70 g/dL L Today Rho(D) Type Rh positive 07/07/25 Plt Count, (157-399) 348 10^3/cmm Today Hemoglobin A1c, (4.0-6.0) 5.4 % 10/04/23 Ser , Semi-Qnt 31161.00 mIU/mL 07/07/25 Urine Opiates Screen, (Negative) Negative ng/mL 11/17/24 Ur Barbiturates Screen, (Negative) Negative ng/mL 11/17/24 Ur Phencyclidine Scrn, (Negative) Negative ng/mL 11/17/24 Ur Amphetamines Screen, (Negative) Positive ng/mL H 11/17/24 U Benzodiazepines Scrn, (Negative) Negative ng/mL 11/17/24 Urine Cocaine Screen, (Negative) Negative ng/mL 11/17/24 U Marijuana (THC) Screen, (Negative) Positive ng/mL H 11/17/24 Micro Urine Specimen 08/04/24 Discharge Plan Discharge Patient Disposition: Home Condition: Stable Prescriptions: New ibuprofen 800 mg Tablet 800 mg PO Q8H Qty: 0 0RF Discontinued albuterol sulfate [Ventolin HFA] 90 mcg/actuation HFA aerosol inhaler 2 puff inhalation Q6H PRN (Reason: shortness of breath or wheezing) Qty: 8.5 2RF cyclobenzaprine 10 mg tablet 10 mg PO TID PRN (Reason: muscle spasm) Qty: 90 2RF escitalopram oxalate [Lexapro] 10 mg tablet 10 mg PO DAILY Qty: 30 2RF budesonide-formoterol [Symbicort] 160-4.5 mcg/actuation HFA aerosol inhaler 2 puff inhalation Q12H Qty: 10.2 2RF No Action norelgestromin-ethin.estradiol [Xulane] 150-35 mcg/24 hr patch weekly 1 patch transdermal Q7D Qty: 3 5RF Rx Instructions: apply once weekly for 3 weeks of a 4-week cycle Discharge Order = DC NOW: Discharge Order (Routine); Ordered 07/08/25 Ordered By: Jesica Gaines Referrals: Abdiel Gleason, AIRPLANE CABIN ATTENDANT-C [Primary Care Provider, Family Practice] Jesica Gaines MD [Physician, RADIOACTIVE WASTE DISPOSAL DISPATCHER] Referral Note: 2 weeks or so Discharge Diet: Usual diet Discharge Activity: Increase activity as tolerated Patient Instructions: Opioid Safety (DC), Dilation and Curettage (DC), OB Discharge Report, OB Food/Drug Interaction Guide, Opioid Safety, Post Anesthesia Care, Patient Portal & Marco Instructions Activity Restrictions/Additional Instructions: Pelvic rest x 2 weeks Discharge Attestations RADIOACTIVE WASTE DISPOSAL DISPATCHER Time Spent in Discharge Care*: less than 30 min Coding Level of Care Code Acute Code for Chg Fwd Diagnoses Acute blood loss anemia D62 Hypotension due to hypovolemia E86.1 Hypotension type: hypotension due to hypovolemia Incomplete miscarriage O03.4
[2025-07-08 08:30] VITALS: BP 115/70; PULSE 92; RESP 16; TEMP 36.9; O2SAT 99
[2025-07-08 08:40] VITALS: BP 115/70; PULSE 92; RESP 16; TEMP 36.9; O2SAT 99
== END 2025-07-08 08:40 | disposition home or self-care (01) ==
LOC: ER 13:31 → OR 13:32 → OBGYN 15:32
PROVIDERS: Admitting Provider Obstetrics & Gynecology; Emergency Provider Emergency Medicine; PCP Nurse Practitioner; Visit Provider Obstetrics & Gynecology
PROC: (CPT 58120; principal; 2025-07-07 14:30)
DX: O02.1 Missed abortion (principal); D62 Acute posthemorrhagic anemia; E86.1 Hypovolemia; F12.90 Cannabis use, unspecified, uncomplicated; F43.12 Post-traumatic stress disorder, chronic; F41.8 Other specified anxiety disorders; G40.909 Epilepsy, unspecified, not intractable, without status epilepticus; F17.200 Nicotine dependence, unspecified, uncomplicated; F33.9 Major depressive disorder, recurrent, unspecified
CPT/HCPCS: 59820; 36415; 36430; 76856; 80053; 83605; 84702; 85025; 85610; 85730; 86850; 86900; 86920; 88305; 99291; 99292; G0378; J0330; J2250; J2405; J2704; J3010; J3490; J9999; P9016; P9045